=== PATIENT | female | born 1955 | race Caucasian/White ===

== ENCOUNTER 2020-07-03 22:05 | Inpatient (IN) | payer MEDICARE, MEDICAID ==
[~2020-07-03] VITALS: Ht 167.6 cm; Wt 90.7 kg
--- NOTE | 2020-07-03 22:10 | NUR ---
ED Nurse Note: pt [facility] from [facility] d/t right lower leg pain, swelling, and redness. Pt is AAOx4, slurred speech per baseline, breathing even and unlabored. Vital signs stable as documented. Per report pt had recent Negative COVID test in 06/28/20. Addendum: 07/03/20 at 2317 by LADAME ED Nurse Note: pt [facility] from [facility] d/t right lower leg pain, swelling, and redness. Pt is AAOx1, pt cooperative and follows directions, slurred speech per baseline, breathing even and unlabored. Vital signs stable as documented. Per report pt had recent Negative COVID test in 06/28/20.
[2020-07-03] MEDS ORDERED: cefTRIAXone 1 GM in NS 55 ML IVPB ONE (22:15)
[2020-07-03] MEDS ORDERED: PAXIL20 MG ORAL (22:16)
[2020-07-03] MEDS ORDERED: SENNA8.6 M2 PO (22:16)
[2020-07-03] MEDS ORDERED: DEPAKOTE250 MG PO (22:16)
[2020-07-03] MEDS ORDERED: COLACE100 MG ORAL (22:16)
[2020-07-03] MEDS ORDERED: FERROUS SULFAT325 MG ORAL (22:16)
[2020-07-03] MEDS ORDERED: ZYPREXA10 MG ORAL (22:16)
[2020-07-03] MEDS ORDERED: QUETIAPINE FUM200 MG ORAL (22:16)
[2020-07-03] MEDS ORDERED: XARELTO10 MG ORAL (22:16)
[2020-07-03] MEDS ORDERED: MILK OF MA400 MG/51 ORAL (22:16)
--- NOTE | 2020-07-03 22:17 | Emergency Room Report ---
History of Present Illness General Chief Complaint: Skin Rash/Abscess Source: Medical Record Present Illness HPI This is a 64-year-old female with a history of COPD and schizophrenia. She presents with chief complaint of bilateral lower extremity cellulitis. She resides in a [facility]. Unknown duration. It appeared that she has previous injury to the right tib-fib and now there is a wound and scabbing. There is some slight drainage from it. EMS said that nursing staff indicated that lower extremity slightly red. This is similar problem in the past. Patient is a poor historian. There is no reported fever or chills. No nausea no vomiting. No trauma. Allergies: Coded Allergies: No Known Allergies (Unverified , 07/03/20) COVID-19 Screening Contact w/high risk pt: No Experienced COVID-19 symptoms?: No COVID-19 Testing performed VENDING SUPERVISOR: No - negative on 06/28/20 COVID-19 Screening: Negative COVID-19 Patient History Past Medical History: see triage record, old chart reviewed, COPD, psych hx Past Surgical History: other Pertinent Family History: none Social History: Denies: smoking Last Menstrual Period: n/a Now: No Immunizations: other Reviewed Nursing Documentation: PMH: Agreed; PSxH: Agreed Nursing Documentation-PMH Past Medical History: No History, Except For Hx COPD: Yes Review of Systems Eye: Denies: eye pain, blurred vision ENT: Denies: ear pain, nose congestion, throat swelling Respiratory: Denies: cough, shortness of breath Cardiovascular: Denies: chest pain, palpitations Gastrointestinal: Denies: abdominal pain, diarrhea, nausea, vomiting Musculoskeletal: Denies: back pain, joint pain Skin: Denies: rash Neurological: Denies: headache, numbness Endocrine: Denies: increased thirst, increased urine Hematologic/Lymphatic: Denies: easy bruising All Other Systems: negative except mentioned in HPI Physical Exam Vital Signs Date Time Temp Pulse Resp B/P (MAP) Pulse Ox O2 Delivery O2 Flow Rate FiO2 07/03/20 22:07 99.0 87 18 143/85 (104) 91 Room Air Vitals unremarkable Sp02 EP Interpretation: reviewed, normal General Appearance: well appearing, no apparent distress, alert Head: normocephalic, atraumatic Eyes: bilateral eye PERRL, bilateral eye EOMI ENT: hearing grossly normal, normal pharynx Neck: full range of motion, supple, no meningismus Respiratory: chest non-tender, lungs clear, normal breath sounds Cardiovascular #1: regular rate, rhythm, no murmur Gastrointestinal: normal bowel sounds, non tender, no mass, no organomegaly, no bruit, non-distended Musculoskeletal: back normal, normal range of motion, gait/station normal, other - Lower extremities show some minimal erythema. Right tib-fib has previous scarring and there is 1 area of about 2 cm with scab/eschar with serous drainage. Psychiatric: mood/affect normal Medical Decision Making Diagnostic Impression: Primary Impression: Bilateral lower leg cellulitis ER Course Presents with possible bilateral lower extremity cellulitis. Does have an area of slight ulceration probably from rubbing from the other foot. I sent a culture. There is no evidence of any DVT or sepsis. Will admit for IV antibiotics. I contacted Dr. Portillo for admission. Last Vital Signs Date Time Temp Pulse Resp B/P (MAP) Pulse Ox O2 Delivery O2 Flow Rate FiO2 07/03/20 22:07 99.0 87 18 143/85 (104) 91 Room Air Status: improved Disposition: ADMITTED INPATIENT Condition: Serious Jet Yeh MD Jul 03, 2020 22:17
--- NOTE | 2020-07-03 22:20 | NUR ---
ED Nurse Note: EDMD aware unable to get IV line on left arm, per EDMD okay to have IV on Right arm.
--- NOTE | 2020-07-03 22:25 | NUR ---
ED Nurse Note: wound culture and blood sent to lab
--- NOTE | 2020-07-03 22:29 | NUR ---
ED Nurse Note: transport tank technician at bedside doing xray of right leg
[2020-07-03 22:39] LABS: BASOPHILS % (AUTO) 0.5 % (0.0-2.0); EOSINOPHILS % (AUTO) 0.1 % (0.0-3.0); HEMATOCRIT 48.2 % (37.0-47.0); HEMOGLOBIN 15.4 G/DL (12.0-16.0); LYMPHOCYTES % (AUTO) 34.2 % (20.0-45.0); MEAN CORPUSCULAR VOLUME 95 FL (80-99); MONOCYTES % (AUTO) 13.2 % (1.0-10.0); PLATELET COUNT 152 K/UL (150-450); RED BLOOD COUNT 5.08 M/UL (4.20-5.40); RED CELL DISTRIBUTION WIDTH 13.5 % (11.6-14.8); WHITE BLOOD COUNT 4.9 K/UL (4.8-10.8)
[2020-07-03 22:41] VITALS: BP 138/81
[2020-07-03 22:48] LABS: CALCIUM 8.9 MG/DL (8.5-10.1); POTASSIUM 4.1 MMOL/L (3.5-5.1)
--- NOTE | 2020-07-03 23:15 | Emergency Room Report ---
Physical Exam Vital Signs Date Time Temp Pulse Resp B/P (MAP) Pulse Ox O2 Delivery O2 Flow Rate FiO2 07/03/20 22:07 99.0 87 18 143/85 (104) 91 Room Air Medical Decision Making Diagnostic Impression: Primary Impression: Bilateral lower leg cellulitis Other X-Ray Diagnostic Results Other X-Ray Diagnostic Results : X-Ray ordered: Rt tib/fib # of Views/Limited Vs Complete: 4 View Indication: Pain EP Interpretation: Yes Interpretation: no dislocation, no soft tissue swelling, no fractures Impression: No acute disease Electronically Signed by: Jet Yeh MD Last Vital Signs Date Time Temp Pulse Resp B/P (MAP) Pulse Ox O2 Delivery O2 Flow Rate FiO2 07/03/20 22:41 99.0 77 18 138/81 95 Room Air Disposition: ADMITTED INPATIENT Condition: Serious Referrals: Iam Portillo DO (PCP) Jet Yeh MD Jul 03, 2020 23:14
--- NOTE | 2020-07-03 23:22 | NUR ---
ED Nurse Note: VRE, CRE, MRSA swabs sent to lab.
--- NOTE | 2020-07-03 23:49 | NUR ---
ED Nurse Note: Report given to CHARITO Melendez in [facility].
--- NOTE | 2020-07-03 23:52 | NUR ---
ED Nurse Note: urine collected and sent to lab
--- NOTE | 2020-07-03 23:58 | NUR ---
ED Nurse Note: pt transported to [facility] accompanied by EMT staff. Pt in stable condition. Belongings and Admission packet taken with patient.
[2020-07-04 00:04] LABS: APPEARANCE,URINE CLEAR; BILIRUBIN, URINE NEGATIVE (NEGATIVE); COLOR,URINE PALE YELLOW; GLUCOSE, URINE (UA) NEGATIVE (NEGATIVE); KETONES,URINE 1+ (NEGATIVE); LEUKOCYTE ESTERASE ,URINE NEGATIVE (NEGATIVE); NITRITE,URINE NEGATIVE (NEGATIVE); PH,URINE 6 (4.5-8.0); PROTEIN,URINE NEGATIVE (NEGATIVE); UROBILINOGEN,URINE NORMAL MG/DL (0.0-1.0)
--- NOTE | 2020-07-04 00:10 | NUR ---
NURSE NOTES: report received from leonarda. Received patient per uriel accompanied by ER staff. patient is awake. slurred to garbled speech but able to express herself. with iv line on the right ac, 20 g, saline lock. denies any pain or discomfort. per leonarda, " wasn't able to get iv access on the left arm. ED Doctor agreed to get iv on the right arm( malignant neoplasm on right female breast". ambulatory, steady gait. noted with redness, swelling and scab on the right lower extremity; with kerlix wrapped on the site. charge nurse made aware. with rashes on bilateral groin. with colostomy on the left lower abdomen. reiterated to call and ask for assistance. call light and light button within easy reach. bed alarm on. bed locked and in lowest position.
--- NOTE | 2020-07-04 00:30 | NUR ---
NURSE NOTES: paged dr. coleman for admission orders and to verify on the right arm iv access secondary to malignant neoplasm on right female breast. charge nurse made aware
--- NOTE | 2020-07-04 01:00 | NUR ---
NURSE NOTES: paged dr. coleman for orders, still waiting for call back.
--- NOTE | 2020-07-04 01:30 | NUR ---
NURSE NOTES: STILL HAVEN'T RECEIVED ANY CALL BACK YET FROM DR. HOLCOMB. RE-PAGED, AWAITING FOR CALL BACK. CHARGE NURSE MADE AWARE
[2020-07-04] MEDS ORDERED: VITAMIN C500 M7 PO (02:20)
[2020-07-04] MEDS ORDERED: ACETAMINOPHEN120 MG ORAL (02:20)
[2020-07-04] MEDS ORDERED: ZINC50 MG ORAL (02:20)
[2020-07-04] MEDS ORDERED: PANTOPRAZOLE SO20 MG ORAL (02:20)
[2020-07-04 04:00] VITALS: BP 124/76
--- NOTE | 2020-07-04 05:00 | NUR ---
NURSE NOTES: RE-PAGED DR. HOLCOMB FOR ADMISSION ORDERS. AWAITING FOR CALL BACK.
[2020-07-04] MEDS ORDERED: Morphine Sulfate 2mg/ml Inj(IV/IM USE ONLY) IVP PRN (06:15)
--- NOTE | 2020-07-04 06:16 | NUR ---
NURSE HAND-OFF: Important Events on Shift: ADMISSION Patient Status: STABLE Diet: REGULAR Pending Orders: Pending Results/Labs: Pending MD notification: Latest Vital Signs: Temperature 98.1 , Pulse 75 , B/P 124 /76 , Respiratory Rate 20 , O2 SAT 95 , Room Air, O2 Flow Rate . Vital Sign Comment: Latest Santizo Fall Score: 35 Fall Risk: Medium Risk Safety Measures: Call light Within Reach, Bed Alarm Zone 1, Side Rails Side Rails x2, Bed position Low and Locked. Fall Precautions: Patient Fall Education
[2020-07-04] MEDS: D5 1/2NS 1,000 ML IV SCH ×2 (06:29→21:00)
--- NOTE | 2020-07-04 06:44 | NUR ---
NURSE NOTES: TOMASZ THAPA- TO KEEP THE IV ON THE RIGHT AC.
--- NOTE | 2020-07-04 06:46 | Consultation ---
History of Present Illness General Chief Complaint: Skin Rash/Abscess Present Illness Allergies: Coded Allergies: No Known Allergies (Unverified , 07/03/20) Medication History Scheduled Divalproex Sodium* (Depakote*), 500 MG PO Q12HR, (Reported) Docusate Sodium* (Colace*), 100 MG ORAL DAILY, (Reported) Ferrous Sulfate* (Ferrous Sulfate*), 325 MG ORAL DAILY, (Reported) Olanzapine* (Zyprexa*), 10 MG ORAL BID, (Reported) Paroxetine Hcl* (Paxil*), 20 MG ORAL DAILY, (Reported) Quetiapine Fumarate* (Seroquel*), 200 MG ORAL DAILY, (Reported) Rivaroxaban (Xarelto*), 20 MG ORAL DAILY, (Reported) Scheduled PRN Acetaminophen* (Tylenol*), 650 MG ORAL Q6HR PRN for MILD/TEMP, (Reported) Ascorbate Calcium (Vitamin C), 500 MG PO DAILY PRN for supplement, (Reported) Pantoprazole (Pantoprazole), 40 MG ORAL AC PRN for gerd, (Reported) Zinc Gluconate (Zinc), 220 MG ORAL DAILY PRN for supplement, (Reported) Miscellaneous Medications Sennosides (Senna), 8.6 MG PO, (Reported) Discontinued Medications Magnesium Hydroxide* (Milk Of Magnesia*), 30 ML ORAL DAILY, (Reported) Discontinued Reason: MD discontinued med Patient History Healthcare decision maker Resuscitation status Advanced Directive on File Physical Exam Last 24 Hour Vital Signs Date Time Temp Pulse Resp B/P (MAP) Pulse Ox O2 Delivery O2 Flow Rate FiO2 07/04/20 04:00 98.1 75 20 124/76 (92) 95 07/04/20 01:08 Room Air 07/03/20 23:59 98.7 73 16 142/82 100 Room Air 07/03/20 22:41 99.0 77 18 138/81 95 Room Air 07/03/20 22:07 99.0 87 18 143/85 (104) 91 Room Air Intake and Output 07/03/20 07/04/20 19:00 07:00 Intake Total 150 ml Balance 150 ml Intake Oral 150 ml # Voids 4 Laboratory Tests Test 07/03/20 22:20 07/03/20 22:45 White Blood Count 4.9 K/UL (4.8-10.8) Red Blood Count 5.08 M/UL (4.20-5.40) Hemoglobin 15.4 G/DL (12.0-16.0) Hematocrit 48.2 % (37.0-47.0) H Mean Corpuscular Volume 95 FL (80-99) Mean Corpuscular Hemoglobin 30.4 PG (27.0-31.0) Mean Corpuscular Hemoglobin Concent 32.0 G/DL (32.0-36.0) Red Cell Distribution Width 13.5 % (11.6-14.8) Platelet Count 152 K/UL (150-450) Mean Platelet Volume 8.0 FL (6.5-10.1) Neutrophils (%) (Auto) 52.0 % (45.0-75.0) Lymphocytes (%) (Auto) 34.2 % (20.0-45.0) Monocytes (%) (Auto) 13.2 % (1.0-10.0) H Eosinophils (%) (Auto) 0.1 % (0.0-3.0) Basophils (%) (Auto) 0.5 % (0.0-2.0) Sodium Level 141 MMOL/L (136-145) Potassium Level 4.1 MMOL/L (3.5-5.1) Chloride Level 104 MMOL/L (98-107) Carbon Dioxide Level 34 MMOL/L (21-32) H Anion Gap 3 mmol/L (5-15) L Blood Urea Nitrogen 21 mg/dL (7-18) H Creatinine 1.0 MG/DL (0.55-1.30) Estimat Glomerular Filtration Rate 56.2 mL/min (>60) Glucose Level 124 MG/DL (74-106) H Calcium Level 8.9 MG/DL (8.5-10.1) Urine Color Pale yellow Urine Appearance Clear Urine pH 6 (4.5-8.0) Urine Specific Combes 1.020 (1.005-1.035) Urine Protein Negative (NEGATIVE) Urine Glucose (UA) Negative (NEGATIVE) Urine Ketones 1+ (NEGATIVE) H Urine Blood Negative (NEGATIVE) Urine Nitrite Negative (NEGATIVE) Urine Bilirubin Negative (NEGATIVE) Urine Urobilinogen Normal MG/DL (0.0-1.0) Urine Leukocyte Esterase Negative (NEGATIVE) Urine RBC 0-2 /HPF (0 - 2) Urine WBC 0 /HPF (0 - 2) Urine Squamous Epithelial Cells Few /LPF (NONE/OCC) Urine Bacteria None /HPF (NONE) Microbiology Date/Time Source Procedure Growth Status 07/03/20 23:10 Rectal Mucosa Received Height (Feet): 5 Height (Inches): 6.00 Weight (Pounds): 200 Medications Current Medications Medications (Trade) Dose Ordered Sig/Alli Route PRN Reason Start Time Stop Time Status Last Admin Dose Admin Dextrose/Sodium Chloride 1,000 ml @ 60 mls/hr [id number] IV 07/04/20 06:30 08/03/20 06:29 07/04/20 06:29 Heparin Sodium (Porcine) (Heparin 5000 units/ml) 5,000 units EVERY 12 HOURS SUBQ 07/04/20 09:00 08/18/20 08:59 Morphine Sulfate (Morphine Sulfate) 2 mg Q4H PRN IVP For Pain 07/04/20 06:15 07/11/20 06:14 Assessment/Plan Assessment/Plan: Oncology Consultation REQ MD: Enoch Portillo [facility] Breast Ca DOS 07/04/2020 HPI This is a 64-year-old female with a history of COPD and schizophrenia. She presents with chief complaint of bilateral lower extremity cellulitis. She resides in a [facility]. Unknown duration. It appeared that she has previous injury to the right tib-fib and now there is a wound and scabbing. There is some slight drainage from it. EMS said that nursing staff indicated that lower extremity slightly red. This is similar problem in the past. Patient is a poor historian. There is no reported fever or chills. No nausea no vomiting. No trauma. She speaks in short ununderstandable language difficult to understand what she says. Coded Allergies: No Known Allergies (Unverified , 07/03/20) COVID-19 Screening Contact w/high risk pt: No Experienced COVID-19 symptoms?: No COVID-19 Testing performed DEAD MAIL CHECKER: No - negative on 06/28/20 COVID-19 Screening: Negative COVID-19 Patient History Past Medical History: see triage record, old chart reviewed, COPD, psych hx Past Surgical History: other Pertinent Family History: none Social History: Denies: smoking Last Menstrual Period: n/a Now: No Immunizations: other Reviewed Nursing Documentation: PMH: Agreed; PSxH: Agreed Nursing Documentation-PMH Past Medical History: No History, Except For Hx COPD: Yes Review of Systems Eye: Denies: eye pain, blurred vision ENT: Denies: ear pain, nose congestion, throat swelling Respiratory: Denies: cough, shortness of breath Cardiovascular: Denies: chest pain, palpitations Gastrointestinal: Denies: abdominal pain, diarrhea, nausea, vomiting Musculoskeletal: Denies: back pain, joint pain Skin: Denies: rash Neurological: Denies: headache, numbness Endocrine: Denies: increased thirst, increased urine Hematologic/Lymphatic: Denies: easy bruising All Other Systems: negative except mentioned in HPI Physical Exam Vitals: unremarkable Sp02 EP Interpretation: reviewed, normal General Appearance: well appearing Heent: normocephalic, atraumatic, hearing grossly normal, normal pharynx Neck: full range of motion, supple, no meningismus Respiratory: chest non-tender, lungs clear, normal breath sounds Cardiovascular: regular rate, rhythm, no murmur +++scar right breast Gastrointestinal: normal bowel sounds, non tender, no mass, no organomegaly, no bruit, non-distended Musculoskeletal: back normal, normal range of motion, gait/station normal, other - Lower extremities show some minimal erythema. Right tib-fib has previous scarring and there is 1 area of about 2 cm with scab/eschar with serous drainage. Psychiatric: mood/affect normal Labs: reviewed Imaging: noted Assesment and Recs # Breast cancer on the right side s/p mastectomy, is not on hormonal therapy --> obtain outside records, order placed --> hold off hormonal medications, surgery may be years ago --> eval for recurrence as needed # Monocytosis --> likely due to reactive process --> wbc remains wnl # Bilateral lower leg cellulitis --> as per id on abx, right leg with gauze over it --> wound care --> eval as needed surg # Dvt ppx lovenox sq Appreciate consultation and dw José Luis Jarvis MD Jul 04, 2020 06:46
--- NOTE | 2020-07-04 07:38 | NUR ---
HAND-OFF: Report given to CHARITO ACHARYA.
--- NOTE | 2020-07-04 07:50 | NUR ---
NURSE NOTES: Received report from CHARITO Ruiz. Patient observed to be awake, alert and oriented x1. Seen ambulating steady gait to restroom. Currently on room air, no s/sx of SOB/Distress, no c/o any pain or discomfort. Colostomy bag located on LLQ. Inplace and intact. Patient on right arm precaution. IV site located on RAC gauge 20, MD Collins aware. Bed placed on lowest and locked, call light placed within reach and will continue to monitor for any changes in condition
[2020-07-04 08:00] VITALS: BP 134/81
[2020-07-04] MEDS: Sennosides 8.6mg tab ORAL SCH (08:55)
[2020-07-04] MEDS: OLANZapine 10mg tab ORAL SCH ×2 (08:55→17:05)
[2020-07-04] MEDS: Docusate 100mg cap ORAL SCH (08:55)
[2020-07-04] MEDS: Depakote 500mg tab ORAL SCH ×2 (08:55→20:22)
[2020-07-04] MEDS: PARoxetine HCL 20mg tab ORAL SCH (08:55)
[2020-07-04] MEDS: QUEtiapine 200mg tab ORAL SCH (08:55)
[2020-07-04] MEDS: Heparin 5000 units/ml inj SUBQ SCH ×2 (08:56→20:23)
[2020-07-04 10:09] LABS: BASOPHILS % (AUTO) 0.7 % (0.0-2.0); HEMATOCRIT 50.6 % (37.0-47.0); HEMOGLOBIN 16.1 G/DL (12.0-16.0); MEAN CORPUSCULAR VOLUME 97 FL (80-99); MONOCYTES % (AUTO) 13.1 % (1.0-10.0); NEUTROPHILS % (AUTO) 54.3 % (45.0-75.0); PLATELET COUNT 166 K/UL (150-450); RED BLOOD COUNT 5.21 M/UL (4.20-5.40); RED CELL DISTRIBUTION WIDTH 13.1 % (11.6-14.8); WHITE BLOOD COUNT 5.7 K/UL (4.8-10.8)
[2020-07-04 10:30] LABS: ANION GAP 8 mmol/L (5-15); BLOOD UREA NITROGEN 19 mg/dL (7-18); CALCIUM 8.8 MG/DL (8.5-10.1); CARBON DIOXIDE 28 MMOL/L (21-32); CHLORIDE 104 MMOL/L (98-107); CREATININE 0.9 MG/DL (0.55-1.30); POTASSIUM 4.1 MMOL/L (3.5-5.1); SODIUM 140 MMOL/L (136-145)
--- NOTE | 2020-07-04 10:45 | History and Physical Report ---
DATE OF ADMISSION: 07/03/2020 DATE AND TIME SEEN: 07/04/2020 at 9 a.m. CONSULTANTS: 1. Dr. Collins. 2. Jin Adams MD. 3. Drake Rivera MD. CHIEF COMPLAINT: Bilateral lower extremity cellulitis, right breast cancer, and confusion. BRIEF HISTORY: This is a 64-year-old female from [facility], presented with above-mentioned diagnoses, admitted to medical floor at [facility]. Currently calm, confused in bed, refusing to answer questions. REVIEW OF SYSTEMS: Unavailable. PAST MEDICAL HISTORY: Includes right breast cancer, lower extremity cellulitis, paranoid schizophrenia, and COPD. PAST SURGICAL HISTORY: Colostomy. ALLERGIES: Denies. MEDICATIONS: Include pantoprazole, quetiapine, olanzapine, ferrous sulfate, sodium, heparin, morphine, and ceftriaxone. SOCIAL HISTORY: Unable to obtain secondary to the patient's condition. PHYSICAL EXAMINATION: GENERAL: Confused in bed, refusing to answer questions. VITAL SIGNS: Temperature 97, pulse 104, respirations 20, blood pressure 134/81. CARDIOVASCULAR: No murmur. LUNGS: Poor air exchange. ABDOMEN: Bowel sounds distant. EXTREMITIES: No cyanosis, clubbing, or edema. Right marino dressing clean and dry. NEUROLOGIC: The patient moves all extremities, slightly weak. LABORATORY AND DIAGNOSTIC DATA: Labs at this time show CBC is normal. BMP shows BUN 21, glucose 124. Urinalysis shows 1+ ketone. ASSESSMENT: 1. Bilateral lower extremity cellulitis. 2. Right breast cancer. 3. Confusion. 4. Right marino wound. 5. Paranoid schizophrenia 6. COPD. PLAN: 1. Resume home medications. 2. O2 and pulmonary treatment as needed. 3. Antibiotics per Infectious Disease. 4. Wound care. 5. Blood pressure and pain control. 6. Dietary followup. 7. Psych treatment. 8. CBC and BMP in the morning. Iam Portillo D.O. DR: KINGS JOB#: [id number] CC:
--- NOTE | 2020-07-04 11:05 | NUR ---
P.T Note: P.T evaluation completed. Pt is alert,unable to articulate words nor speaks coherently however able to follow up simple commands. No indication of pain nor discomfort. Pt is independent with bed mobilities and transfers. Pt safely ambulating independently w/o AD needed. Pt currently functioning at baseline therefore skilled not needed at this time. DC P.T services. Thank you for this referral.
[2020-07-04 12:00] VITALS: BP 132/73
--- NOTE | 2020-07-04 12:54 | Consultation ---
History of Present Illness General Date patient seen: Jul 04, 2020 Chief Complaint: Skin Rash/Abscess Present Illness HPI 64 y/o F with hx of COPD, paranoid schizophrenia, R breast CA sp mastectomy, [place] resident ([facility]) presented to ED on 07/03/20 with b/l LE drainage and redness. Upon admission was noted evidence of prior injury to R tib-fib with a scabbed wound Denied f/c, n/v/d COVID19 neg on 06/28 Allergies: Coded Allergies: No Known Allergies (Unverified , 07/03/20) Medication History Scheduled Divalproex Sodium* (Depakote*), 500 MG PO Q12HR, (Reported) Docusate Sodium* (Colace*), 100 MG ORAL DAILY, (Reported) Ferrous Sulfate* (Ferrous Sulfate*), 325 MG ORAL DAILY, (Reported) Olanzapine* (Zyprexa*), 10 MG ORAL BID, (Reported) Paroxetine Hcl* (Paxil*), 20 MG ORAL DAILY, (Reported) Quetiapine Fumarate* (Seroquel*), 200 MG ORAL DAILY, (Reported) Rivaroxaban (Xarelto*), 20 MG ORAL DAILY, (Reported) Scheduled PRN Acetaminophen* (Tylenol*), 650 MG ORAL Q6HR PRN for MILD/TEMP, (Reported) Ascorbate Calcium (Vitamin C), 500 MG PO DAILY PRN for supplement, (Reported) Pantoprazole (Pantoprazole), 40 MG ORAL AC PRN for gerd, (Reported) Zinc Gluconate (Zinc), 220 MG ORAL DAILY PRN for supplement, (Reported) Miscellaneous Medications Sennosides (Senna), 8.6 MG PO, (Reported) Discontinued Medications Magnesium Hydroxide* (Milk Of Magnesia*), 30 ML ORAL DAILY, (Reported) Discontinued Reason: discontinued med Patient History Healthcare decision maker Resuscitation status Advanced Directive on File Patient History Narrative Pmhx: as above Shx: Denies: smoking Fhx: non contributory Review of Systems All Other Systems: negative except mentioned in HPI Physical Exam Physical Exam Narrative GENERAL: Confused in bed, refusing to answer questions. CARDIOVASCULAR: No murmur. LUNGS: Poor air exchange. ABDOMEN: Bowel sounds distant. EXTREMITIES: No cyanosis, clubbing, or edema. R marino w evidence of prior surgery- redneses, swelling, and warmth; L LE lesser degree of erythema or swelling NEUROLOGIC: The patient moves all extremities, slightly weak. Last 24 Hour Vital Signs Date Time Temp Pulse Resp B/P (MAP) Pulse Ox O2 Delivery O2 Flow Rate FiO2 07/04/20 08:00 97.9 104 20 134/81 (98) 94 07/04/20 04:00 98.1 75 20 124/76 (92) 95 07/04/20 01:08 Room Air 07/03/20 23:59 98.7 73 16 142/82 100 Room Air 07/03/20 22:41 99.0 77 18 138/81 95 Room Air 07/03/20 22:07 99.0 87 18 143/85 (104) 91 Room Air Intake and Output 07/03/20 07/04/20 19:00 07:00 Intake Total 150 ml Balance 150 ml Intake Oral 150 ml # Voids 4 Laboratory Tests Test 07/03/20 22:20 07/03/20 22:45 07/04/20 09:25 White Blood Count 4.9 K/UL (4.8-10.8) 5.7 K/UL (4.8-10.8) Red Blood Count 5.08 M/UL (4.20-5.40) 5.21 M/UL (4.20-5.40) Hemoglobin 15.4 G/DL (12.0-16.0) 16.1 G/DL (12.0-16.0) H Hematocrit 48.2 % (37.0-47.0) H 50.6 % (37.0-47.0) H Mean Corpuscular Volume 95 FL (80-99) 97 FL (80-99) Mean Corpuscular Hemoglobin 30.4 PG (27.0-31.0) 30.9 PG (27.0-31.0) Mean Corpuscular Hemoglobin Concent 32.0 G/DL (32.0-36.0) 31.8 G/DL (32.0-36.0) L Red Cell Distribution Width 13.5 % (11.6-14.8) 13.1 % (11.6-14.8) Platelet Count 152 K/UL (150-450) 166 K/UL (150-450) Mean Platelet Volume 8.0 FL (6.5-10.1) 7.8 FL (6.5-10.1) Neutrophils (%) (Auto) 52.0 % (45.0-75.0) 54.3 % (45.0-75.0) Lymphocytes (%) (Auto) 34.2 % (20.0-45.0) 32.0 % (20.0-45.0) Monocytes (%) (Auto) 13.2 % (1.0-10.0) H 13.1 % (1.0-10.0) H Eosinophils (%) (Auto) 0.1 % (0.0-3.0) 0.0 % (0.0-3.0) Basophils (%) (Auto) 0.5 % (0.0-2.0) 0.7 % (0.0-2.0) Sodium Level 141 MMOL/L (136-145) 140 MMOL/L (136-145) Potassium Level 4.1 MMOL/L (3.5-5.1) 4.1 MMOL/L (3.5-5.1) Chloride Level 104 MMOL/L (98-107) 104 MMOL/L (98-107) Carbon Dioxide Level 34 MMOL/L (21-32) H 28 MMOL/L (21-32) Anion Gap 3 mmol/L (5-15) L 8 mmol/L (5-15) Blood Urea Nitrogen 21 mg/dL (7-18) H 19 mg/dL (7-18) H Creatinine 1.0 MG/DL (0.55-1.30) 0.9 MG/DL (0.55-1.30) Estimat Glomerular Filtration Rate 56.2 mL/min (>60) > 60 mL/min (>60) Glucose Level 124 MG/DL (74-106) H 116 MG/DL (74-106) H Calcium Level 8.9 MG/DL (8.5-10.1) 8.8 MG/DL (8.5-10.1) Urine Color Pale yellow Urine Appearance Clear Urine pH 6 (4.5-8.0) Urine Specific [place] 1.020 (1.005-1.035) Urine Protein Negative (NEGATIVE) Urine Glucose (UA) Negative (NEGATIVE) Urine Ketones 1+ (NEGATIVE) H Urine Blood Negative (NEGATIVE) Urine Nitrite Negative (NEGATIVE) Urine Bilirubin Negative (NEGATIVE) Urine Urobilinogen Normal MG/DL (0.0-1.0) Urine Leukocyte Esterase Negative (NEGATIVE) Urine RBC 0-2 /HPF (0 - 2) Urine WBC 0 /HPF (0 - 2) Urine Squamous Epithelial Cells Few /LPF (NONE/OCC) Urine Bacteria None /HPF (NONE) Microbiology Date/Time Source Procedure Growth Status 07/03/20 23:10 Rectal Mucosa Received Height (Feet): 5 Height (Inches): 6.00 Weight (Pounds): 200 Medications Current Medications Medications (Trade) Dose Ordered Sig/Alli Route PRN Reason Start Time Stop Time Status Last Admin Dose Admin Dextrose/Sodium Chloride 1,000 ml @ 60 mls/hr [id number] IV 07/04/20 06:30 08/03/20 06:29 07/04/20 06:29 Divalproex Sodium (Depakote) 500 mg Q12HR ORAL 07/04/20 09:00 08/03/20 08:59 07/04/20 08:55 Docusate Sodium (Colace) 100 mg DAILY ORAL 07/04/20 09:00 08/03/20 08:59 07/04/20 08:55 Ferrous Sulfate (Feosol) 325 mg DAILY ORAL 07/04/20 09:00 10/02/20 08:59 07/04/20 08:55 Heparin Sodium (Porcine) (Heparin 5000 units/ml) 5,000 units EVERY 12 HOURS SUBQ 07/04/20 09:00 08/18/20 08:59 07/04/20 08:56 Morphine Sulfate (Morphine Sulfate) 2 mg Q4H PRN IVP For Pain 07/04/20 06:15 07/11/20 06:14 Olanzapine (ZyPREXA) 10 mg BID ORAL 07/04/20 09:00 08/18/20 08:59 07/04/20 08:55 Pantoprazole (Protonix) 40 mg DAILY ORAL 07/04/20 09:00 08/03/20 08:59 07/04/20 08:55 Paroxetine HCl (Paxil) 20 mg DAILY ORAL 07/04/20 09:00 08/03/20 08:59 07/04/20 08:55 Quetiapine Fumarate (SEROqueL) 200 mg DAILY ORAL 07/04/20 09:00 08/18/20 08:59 07/04/20 08:55 Sennosides (Senokot) 8.6 mg DAILY ORAL 07/04/20 09:00 08/03/20 08:59 07/04/20 08:55 Assessment/Plan Assessment/Plan: Abx: Ceftriaxone x1 07/03 Assessment: R>L LE cellulitis Afebrile No leukocytosis -u/a neg COPD paranoid schizophrenia R breast CA sp mastectomy [place] resident ([facility]) Plan: -Start IV Ancef #1 (abx #2) -f/u cx -Monitor CBC/CMP, temperatures -wound care per hospital protocol Thank you for consulting [facility]. Will continue to follow along with you. Discussed with CHARITO. Omaira Eduardo M.D. Jul 04, 2020 12:54
--- NOTE | 2020-07-04 13:15 | NUR ---
NURSE NOTES: Notified Dr. Portillo that patient pulled out IV access site and refuses to have one reinserted after multiple attempts. Ordered to consult with Dr. Rivera. Notified Dr. Rivera received multiple orders. Orders noted and carried out.
[2020-07-04] MEDS ORDERED: DiphenhydrAMINE 50mg/ml Inj IM SCH (14:45)
[2020-07-04] MEDS ORDERED: Haloperidol 5mg/ml Inj IM SCH (14:45)
[2020-07-04] MEDS ORDERED: LORazepam 1mg tab ORAL PRN (14:45)
[2020-07-04] MEDS ORDERED: LORazepam Inj 2mg/ml 1ml IM SCH (14:45)
--- NOTE | 2020-07-04 15:00 | NUR ---
NURSE NOTES: Multiple attempts on trying to insert IV access done on patient, patient refuses and begins to become agitated.
[2020-07-04 16:00] VITALS: BP 155/95
[2020-07-04] MEDS ORDERED: ceFAZolin sod 1 GM in D5W 55 ML IVPB SCH (16:00)
--- NOTE | 2020-07-04 16:21 | NUR ---
CASE MANAGEMENT:INITIAL REVIEW 64 YR OLD FEMALE BIBA FROM [facility] CC;SKIN RASH. ABSCESS. SI;BLE CELLULITIS 99.0 87 18 143/85 91% ON RA BUN 21 BG 124 UA+ KETONES IS;ROCEPHIN IV ADMITTED TO MED SURG MED SURG STATUS DCP;FROM [facility]
[2020-07-04] MEDS: Cephalexin 500mg cap ORAL SCH ×2 (17:05→23:13)
[2020-07-04] MEDS ORDERED: Cephalexin 500mg cap ORAL SCH (18:00)
[2020-07-04] MEDS ORDERED: XARELTO20 MG ORAL (18:10)
[2020-07-04] MEDS ORDERED: MULTIVITAMINS1 EAC8 ORAL (18:10)
[2020-07-04] MEDS ORDERED: ACETAMINOPHEN325 M1 ORAL (18:10)
[2020-07-04] MEDS ORDERED: FLEET ENEMA133 ML RECTAL (18:10)
[2020-07-04] MEDS ORDERED: CRANBERRY450 M4 PO (18:10)
[2020-07-04] MEDS ORDERED: ZINC SULFATE220 M1 ORAL (18:10)
[2020-07-04] MEDS ORDERED: ACETAMINOPHEN500 M3 ORAL (18:10)
[2020-07-04] MEDS ORDERED: DEPAKOTE ER500 MG ORAL (18:10)
--- NOTE | 2020-07-04 18:30 | Consultation ---
DATE OF CONSULTATION: 07/04/2020 CONSULTING PHYSICIAN: Drake Rivera MD. REFERRING PHYSICIAN: Iam Portillo DO. HISTORY OF PRESENT ILLNESS: This is a 64-year-old female patient. She was admitted to [facility]. The reason why she was admitted to [facility] was because this patient has bilateral lower extremity cellulitis, right breast cancer, and confusion, but she also has overlying diagnosis of paranoid schizophrenia. She has extreme mood lability. She came in from [facility]. I saw and assessed her at bedside. She was making a lot of nonsensical statements, but also seemed to have some psychomotor agitation, irritable as well. PAST MEDICAL HISTORY: She has a history of right breast cancer, lower extremity cellulitis, COPD. ALLERGIES: No known drug allergies at this time. PSYCHOTROPIC MEDICATIONS ON ADMISSION: She is currently on a psychotropic medication regimen consisting of Paxil 20 mg a day, Zyprexa 10 mg twice a day, Depakote 500 mg twice a day. PAIN ASSESSMENT: 11/07 pain. DEVELOPMENTAL PROBLEMS: Denies. FAMILY PSYCHIATRIC HISTORY: Denies. SUBSTANCE ABUSE HISTORY: Denies. SOCIAL HISTORY: The patient lives at [facility], financially supported by [employer] and Medicare. LEGAL PROBLEMS: No known legal problems. FAMILY INTERACTIONS AND RELATIONSHIPS: Poor. PSYCHIATRIC HISTORY: Schizoaffective, bipolar type, had multiple psychiatric admissions. STRENGTHS: She is motivated to get better and has a place to live. WEAKNESSES: Impulsive, minimal support system. MENTAL STATUS EXAMINATION: A 64-year-old female. Her appearance is disheveled. Her attitude is irritable and agitated. Affect is labile. Intellect is poor because she does not know current events and does not know last four presidents. Mood, depressed and anxious. Motor activity, psychomotor agitation. Attention span is poor because she cannot do serial sevens or spell world backwards. Orientation x2. She is oriented to person and place, not time or situation. Speech, pressured and nonsensical. Thought process, disorganized and illogical. Thought content, auditory hallucinations and paranoid delusions. Perception is poor because of perceptual disturbance such as auditory hallucinations and paranoid delusions. Abstract reasoning is poor because she does not understand proverbs and only has concrete thinking. Insight is poor because she does not recognize having a psych disorder. Judgment is poor because she cannot make medical decisions for herself. She has difficulty lizette for safety as far as suicidal ideations, but she is able to contract for safety while in the hospital. Short-term memory, 3 out of 3 recall after 5 minutes delay with good short-term memory. Long-term memory is intact based on her knowledge of long-term events of her life such as high school that she went to. Gait is normal. No abnormal movements. . DIAGNOSES: 1. Schizoaffective, bipolar type. 2. No secondary. 3. Medical - COPD, diabetes. She has a diagnosis of bilateral lower extremity cellulitis and chronic pain, also anemia. 4. Psychosocial stressors, financial. 5. Functional impairment, severe. PLAN: Treat the patient with medication regimen of a day and also Depakote . Twenty minutes of cognitive behavioral therapy will help her identify automatic negative thoughts and help her convert those negative thoughts to more positive thoughts to reduce depression, anxiety, and mood lability. Chart reviewed. Discussed with staff. The patient is seen and assessed in her room. I would like to thank Dr. Iam Portillo for this interesting consultation. Drake Rivera M.D. DR: VENKAT/Ayesha JOB#: [id number] CC:
--- NOTE | 2020-07-04 18:54 | Diagnostic Imaging Report ---
Indication: Pain, trauma, right lower leg pain and swelling and redness Technique: 2 views of the right tibia and fibula Comparison: none Findings: No acute fracture. No dislocation. The joint spaces are preserved. No radiopaque foreign body Impression: Negative
--- NOTE | 2020-07-04 19:20 | NUR ---
NURSE NOTES: Notified Dr. Portillo patient still has no IV access site, still waiting for further orders from Dr. Portillo
--- NOTE | 2020-07-04 19:21 | NUR ---
NURSE HAND-OFF: Important Events on Shift:ATB; colostomy bag change Patient Status: stable Diet: regular Pending Orders: n/a Pending Results/Labs:n/a Pending MD notification:n/a Latest Vital Signs: Temperature 99.0 , Pulse 91 , B/P 155 /95 , Respiratory Rate 20 , O2 SAT 94 , Room Air, O2 Flow Rate . Vital Sign Comment: stable Latest [place] Fall Score: 35 Fall Risk: Medium Risk Safety Measures: Call light Within Reach, Bed Alarm Zone 2, Side Rails Side Rails x2, Bed position Low and Locked. Fall Precautions: Yellow Socks Yellow Gown Door Sign Patient Fall Education Report given to CHARITO Finley.
--- NOTE | 2020-07-04 19:39 | NUR ---
NURSE NOTES: Received report from CHARITO Blair. AAO x 1, on room air, ambulatory. Colostomy bag in place on LLQ. No IV access, MD aware. No acute distress noted. Denies pain. R arm precaution. Bed locked, lowest position,alarm on, call light within reach. Will continue to monitor.
[2020-07-04 20:00] VITALS: BP 142/87
--- NOTE | 2020-07-04 21:26 | NUR ---
NURSE NOTES: Contacted [facility] to obtain breast cancer record. They said they don't have it. Pt didn't have the record when she admitted at group home.
[2020-07-05] VITALS (8 sets, daily range): BP systolic 111–144; BP diastolic 65–84
[2020-07-05] MEDS: Cephalexin 500mg cap ORAL SCH ×4 (05:50→23:17)
--- NOTE | 2020-07-05 06:37 | Hematology/Onc Progress Note ---
Assessment/Plan Assessment/Plan Assesment and Recs # Breast cancer on the right side s/p mastectomy, is not on hormonal therapy --> obtain outside records, order placed --> hold off hormonal medications, surgery may be years ago --> eval for recurrence as needed --> 06/04 unable to obtain records per snf now # Erythrocytosis likely is due to dehydration --> trend hgb as needed --> hgb 16.5 # Monocytosis --> likely due to reactive process --> wbc remains wnl # Bilateral lower leg cellulitis --> as per id on abx, right leg with gauze over it --> wound care --> eval as needed surg # Dvt ppx lovenox sq Appreciate consultation and brian MCNEILL Subjective Constitutional: Denies: no symptoms, chills, fever, malaise, weakness, other HEENT: Denies: no symptoms, eye pain, blurred vision, tearing, double vision, ear pain, ear discharge, nose pain, nose congestion, throat pain, throat swelling, mouth pain, mouth swelling, other Cardiovascular: Denies: no symptoms, chest pain, edema, irregular heart rate, lightheadedness, palpitations, syncope, other Respiratory: Denies: no symptoms, cough, shortness of breath, SOB with excertion, SOB at rest, sputum, wheezing, other Gastrointestinal/Abdominal: Denies: no symptoms, abdomen distended, abdominal pain, black stools, tarry stools, blood in stool, constipated, diarrhea, difficulty swallowing, nausea, poor appetite, poor fluid intake, rectal bleeding, vomiting, other Genitourinary: Denies: no symptoms, burning, discharge, frequency, flank pain, hematuria, incontinence, pain, urgency, other Neurologic/Psychiatric: Denies: no symptoms, anxiety, depressed, emotional problems, headache, numbness, paresthesia, pre-existing deficit, seizure, tingling, tremors, weakness, other Endocrine: Denies: no symptoms, excessive sweating, flushing, intolerance to cold, intolerance to heat, increased hunger, increased thirst, increased urine, unexplained weight gain, unexplained weight loss, other Allergies: Coded Allergies: No Known Allergies (Unverified , 07/03/20) Subjective 07/05 llq colostomy bag, a+ox1 no bleeding, labs reviewed, dw rn, hgb 16 Objective Objective Current Medications Medications (Trade) Dose Ordered Sig/Alli Route PRN Reason Start Time Stop Time Status Last Admin Dose Admin Cephalexin (Keflex) 500 mg Q6HR ORAL 07/04/20 18:00 07/11/20 17:59 07/05/20 05:50 Dextrose/Sodium Chloride 1,000 ml @ 60 mls/hr [id number] IV 07/04/20 06:30 08/03/20 06:29 07/04/20 06:29 Divalproex Sodium (Depakote) 500 mg Q12HR ORAL 07/04/20 09:00 08/03/20 08:59 07/04/20 20:22 Docusate Sodium (Colace) 100 mg DAILY ORAL 07/04/20 09:00 08/03/20 08:59 07/04/20 08:55 Ferrous Sulfate (Feosol) 325 mg DAILY ORAL 07/04/20 09:00 10/02/20 08:59 07/04/20 08:55 Heparin Sodium (Porcine) (Heparin 5000 units/ml) 5,000 units EVERY 12 HOURS SUBQ 07/04/20 09:00 08/18/20 08:59 07/04/20 20:23 Lorazepam (Ativan) 1 mg Q6H PRN ORAL For Anxiety 07/04/20 14:45 07/11/20 14:44 Morphine Sulfate (Morphine Sulfate) 2 mg Q4H PRN IVP For Pain 07/04/20 06:15 07/11/20 06:14 Olanzapine (ZyPREXA) 10 mg BID ORAL 07/04/20 09:00 08/18/20 08:59 07/04/20 17:05 Pantoprazole (Protonix) 40 mg DAILY ORAL 07/04/20 09:00 08/03/20 08:59 07/04/20 08:55 Paroxetine HCl (Paxil) 20 mg DAILY ORAL 07/04/20 09:00 08/03/20 08:59 07/04/20 08:55 Quetiapine Fumarate (SEROqueL) 200 mg DAILY ORAL 07/04/20 09:00 08/18/20 08:59 07/04/20 08:55 Risperidone (RisperDAL) 1 mg BID ORAL 07/04/20 18:00 08/18/20 17:59 07/04/20 17:05 Sennosides (Senokot) 8.6 mg DAILY ORAL 07/04/20 09:00 08/03/20 08:59 07/04/20 08:55 Last 24 Hour Vital Signs Date Time Temp Pulse Resp B/P (MAP) Pulse Ox O2 Delivery O2 Flow Rate FiO2 07/05/20 04:00 97.5 79 18 138/70 (92) 94 07/05/20 00:00 98.0 85 18 135/65 (88) 92 07/04/20 21:00 Room Air 07/04/20 20:00 97.7 101 20 142/87 (105) 92 07/04/20 16:00 99.0 91 20 155/95 (115) 94 07/04/20 12:00 98.1 95 18 132/73 (92) 94 07/04/20 09:00 Room Air 07/04/20 08:00 97.9 104 20 134/81 (98) 94 07/04/20 04:00 98.1 75 20 124/76 (92) 95 07/04/20 01:08 Room Air 07/03/20 23:59 98.7 73 16 142/82 100 Room Air 07/03/20 22:41 99.0 77 18 138/81 95 Room Air 07/03/20 22:07 99.0 87 18 143/85 (104) 91 Room Air Intake and Output 07/04/20 07/05/20 19:00 07:00 Intake Total 400 ml Balance 400 ml Intake Oral 400 ml # Voids 4 Labs Test 07/03/20 22:20 07/03/20 22:45 07/04/20 09:25 White Blood Count 4.9 K/UL (4.8-10.8) 5.7 K/UL (4.8-10.8) Red Blood Count 5.08 M/UL (4.20-5.40) 5.21 M/UL (4.20-5.40) Hemoglobin 15.4 G/DL (12.0-16.0) 16.1 G/DL (12.0-16.0) Hematocrit 48.2 % (37.0-47.0) 50.6 % (37.0-47.0) Mean Corpuscular Volume 95 FL (80-99) 97 FL (80-99) Mean Corpuscular Hemoglobin 30.4 PG (27.0-31.0) 30.9 PG (27.0-31.0) Mean Corpuscular Hemoglobin Concent 32.0 G/DL (32.0-36.0) 31.8 G/DL (32.0-36.0) Red Cell Distribution Width 13.5 % (11.6-14.8) 13.1 % (11.6-14.8) Platelet Count 152 K/UL (150-450) 166 K/UL (150-450) Mean Platelet Volume 8.0 FL (6.5-10.1) 7.8 FL (6.5-10.1) Neutrophils (%) (Auto) 52.0 % (45.0-75.0) 54.3 % (45.0-75.0) Lymphocytes (%) (Auto) 34.2 % (20.0-45.0) 32.0 % (20.0-45.0) Monocytes (%) (Auto) 13.2 % (1.0-10.0) 13.1 % (1.0-10.0) Eosinophils (%) (Auto) 0.1 % (0.0-3.0) 0.0 % (0.0-3.0) Basophils (%) (Auto) 0.5 % (0.0-2.0) 0.7 % (0.0-2.0) Sodium Level 141 MMOL/L (136-145) 140 MMOL/L (136-145) Potassium Level 4.1 MMOL/L (3.5-5.1) 4.1 MMOL/L (3.5-5.1) Chloride Level 104 MMOL/L (98-107) 104 MMOL/L (98-107) Carbon Dioxide Level 34 MMOL/L (21-32) 28 MMOL/L (21-32) Anion Gap 3 mmol/L (5-15) 8 mmol/L (5-15) Blood Urea Nitrogen 21 mg/dL (7-18) 19 mg/dL (7-18) Creatinine 1.0 MG/DL (0.55-1.30) 0.9 MG/DL (0.55-1.30) Estimat Glomerular Filtration Rate 56.2 mL/min (>60) > 60 mL/min (>60) Glucose Level 124 MG/DL (74-106) 116 MG/DL (74-106) Calcium Level 8.9 MG/DL (8.5-10.1) 8.8 MG/DL (8.5-10.1) Urine Color Pale yellow Urine Appearance Clear Urine pH 6 (4.5-8.0) Urine Specific [place] 1.020 (1.005-1.035) Urine Protein Negative (NEGATIVE) Urine Glucose (UA) Negative (NEGATIVE) Urine Ketones 1+ (NEGATIVE) Urine Blood Negative (NEGATIVE) Urine Nitrite Negative (NEGATIVE) Urine Bilirubin Negative (NEGATIVE) Urine Urobilinogen Normal MG/DL (0.0-1.0) Urine Leukocyte Esterase Negative (NEGATIVE) Urine RBC 0-2 /HPF (0 - 2) Urine WBC 0 /HPF (0 - 2) Urine Squamous Epithelial Cells Few /LPF (NONE/OCC) Urine Bacteria None /HPF (NONE) Height (Feet): 5 Height (Inches): 6.00 Weight (Pounds): 200 Objective Physical Exam Vitals: unremarkable Sp02 EP Interpretation: reviewed, normal General Appearance: well appearing Heent: normocephalic, atraumatic, hearing grossly normal, normal pharynx Neck: full range of motion, supple, no meningismus Respiratory: chest non-tender, lungs clear, normal breath sounds Cardiovascular: regular rate, rhythm, no murmur +++scar right breast Gastrointestinal: normal bowel sounds, non tender, no mass, no organomegaly, no bruit, non-distended Musculoskeletal: back normal, normal range of motion, gait/station normal, other - Lower extremities show some minimal erythema. Right tib-fib has previous scarring and there is 1 area of about 2 cm with scab/eschar with serous drainage. Psychiatric: mood/affect normal José Luis Collins MD Jul 05, 2020 06:37
--- NOTE | 2020-07-05 06:39 | NUR ---
NURSE HAND-OFF: Important Events on Shift:confused, colostomy bag Patient Status: stable Diet: reg Pending Orders: N Pending Results/Labs:AM labs Pending MD notification:N Latest Vital Signs: Temperature 97.5 , Pulse 79 , B/P 138 /70 , Respiratory Rate 18 , O2 SAT 94 , Room Air, O2 Flow Rate . Vital Sign Comment: [] Latest [place] Fall Score: 35 Fall Risk: Medium Risk Safety Measures: Call light Within Reach, Bed Alarm Zone 2, Side Rails Side Rails x2, Bed position Low and Locked. Fall Precautions: Yellow Socks Yellow Gown Door Sign Patient Fall Education Addendum: 07/05/20 at 0710 by KEYANNA VELAZQUEZ RN RN HAND-OFF: Report given to Rossy.
[2020-07-05 07:04] LABS: ANION GAP 6 mmol/L (5-15); BLOOD UREA NITROGEN 18 mg/dL (7-18); CALCIUM 8.5 MG/DL (8.5-10.1); CARBON DIOXIDE 31 MMOL/L (21-32); CHLORIDE 102 MMOL/L (98-107); CREATININE 0.8 MG/DL (0.55-1.30); POTASSIUM 4.5 MMOL/L (3.5-5.1); SODIUM 139 MMOL/L (136-145)
--- NOTE | 2020-07-05 07:19 | NUR ---
NURSE NOTES: Received report from CHARITO Finley. Patient observed to be awake, alert, and oriented x0. Seen lying bed, currently on room air no s/sx of SOB/Distress, no s/sx of pain or discomfort. Colostomy bag located at [facility], inplace and intact. No IV access site MD aware. Bed placed on lowest and locked position, call light placed within reach and will continue to monitor for any changes in condition.
[2020-07-05 07:23] LABS: BASOPHILS % (AUTO) 0.5 % (0.0-2.0); EOSINOPHILS % (AUTO) 0.1 % (0.0-3.0); HEMATOCRIT 50.7 % (37.0-47.0); LYMPHOCYTES % (AUTO) 30.7 % (20.0-45.0); MEAN CORPUSCULAR VOLUME 98 FL (80-99); MONOCYTES % (AUTO) 13.7 % (1.0-10.0); PLATELET COUNT 148 K/UL (150-450); RED BLOOD COUNT 5.19 M/UL (4.20-5.40); RED CELL DISTRIBUTION WIDTH 13.6 % (11.6-14.8); WHITE BLOOD COUNT 4.8 K/UL (4.8-10.8)
[2020-07-05] MEDS: PARoxetine HCL 20mg tab ORAL SCH (09:00)
[2020-07-05] MEDS: Heparin 5000 units/ml inj SUBQ SCH ×2 (09:00→20:06)
[2020-07-05] MEDS: Depakote 500mg tab ORAL SCH ×2 (09:47→20:06)
[2020-07-05] MEDS: Docusate 100mg cap ORAL SCH (09:48)
[2020-07-05] MEDS: Sennosides 8.6mg tab ORAL SCH (09:48)
[2020-07-05] MEDS: QUEtiapine 200mg tab ORAL SCH (09:48)
[2020-07-05] MEDS: OLANZapine 10mg tab ORAL SCH ×2 (09:48→17:12)
--- NOTE | 2020-07-05 11:35 | Psychiatry Consultation ---
Psychiatry Consultation Psychiatry Consultation Chief Complaint: Skin Rash/Abscess History of Present Illness: 64yo femalw patient agitated, conmfused and mood labille, cognition has declined below baseline with AMS. Allergies: Coded Allergies: No Known Allergies (Unverified , 07/03/20) Medication History Scheduled Cranberry Fruit Concentrate (Cranberry), 450 MG PO BID, (Reported) Divalproex Sodium* (Depakote Er*), 500 MG ORAL EVERY 12 HOURS, (Reported) Docusate Sodium* (Colace*), 100 MG ORAL DAILY, (Reported) Ferrous Sulfate* (Ferrous Sulfate*), 325 MG ORAL DAILY, (Reported) Multivitamin With Minerals (Multivitamins With Minerals*), 1 TAB ORAL DAILY, (Reported) Olanzapine* (Zyprexa*), 10 MG ORAL BID, (Reported) Paroxetine Hcl* (Paxil*), 20 MG ORAL DAILY, (Reported) Quetiapine Fumarate* (Seroquel*), 200 MG ORAL DAILY, (Reported) Rivaroxaban (Xarelto), 20 MG ORAL Evening, (Reported) Sennosides (Senna), 2 TAB PO BEDTIME, (Reported) Zinc Sulfate (Zinc Sulfate*), 220 MG ORAL DAILY, (Reported) Scheduled PRN Acetaminophen* (Acetaminophen 325MG Tablet*), 325 MG ORAL Q6H PRN for Mild Pain (Pain Scale 1-3), (Reported) Acetaminophen* (Acetaminophen Extra Strength*), 1,000 MG ORAL Q6H PRN for Moderate Pain (Pain Scale 4-6), (Reported) Ascorbate Calcium (Vitamin C), 500 MG PO DAILY PRN for supplement, (Reported) Na Phos,M-B/Na Phos,Di-Ba* (Fleet Enema*), 133 ML RECTAL DAILY PRN for Constipation, (Reported) Pantoprazole (Pantoprazole), 40 MG ORAL AC PRN for gerd, (Reported) Discontinued Medications Acetaminophen* (Tylenol*), 650 MG ORAL Q6HR PRN for MILD/TEMP, (Reported) Discontinued Reason: Prescription changed Divalproex Sodium* (Depakote*), 500 MG PO Q12HR, (Reported) Discontinued Reason: Prescription changed Magnesium Hydroxide* (Milk Of Magnesia*), 30 ML ORAL DAILY, (Reported) Discontinued Reason: MD discontinued med Rivaroxaban (Xarelto*), 20 MG ORAL DAILY, (Reported) Discontinued Reason: Prescription changed Zinc Gluconate (Zinc), 220 MG ORAL DAILY PRN for supplement, (Reported) Discontinued Reason: Prescription changed Objective Data Height (Feet): 5 Height (Inches): 6.00 Weight (Pounds): 200 Appearance: disheveled Behavior Mannerisms: poor eye contact Affect: constricted Mood: depressed, irritable, anxious Speech: dysarthric Thought Process: disorganized Thought Content: paranoia Perceptual Disturbances: auditory Suicidal Ideation: no plan Assessment/Plan Assessment/Plan: [place] Zyprexa 10mg PO BID and Risperdal 1mg PO BID with Seroquel 200mg PO qhs. Ativan 1mg PO q6h prn anxiety. 20minutes or Cognitive behavioral therapy provided whereas I helped the patient identify her automatic negative thoughts and helped her convert her negative thoughts to more positive thoughts. Transfer to psych at [place] when medically cleared Diagnosis [place] I: Schizoaffective Bipolar typw Drake Rivera MD Jul 05, 2020 11:35
--- NOTE | 2020-07-05 13:24 | NUR ---
DISCHARGE PLANNING PATIENT REFERRED BACK TO [facility] P [phone] F [phone]
--- NOTE | 2020-07-05 13:53 | General Progress Note ---
Subjective Constitutional: Reports: weakness Allergies: Coded Allergies: No Known Allergies (Unverified , 07/03/20) All Systems: reviewed and negative except above Subjective calm in room Objective Last 24 Hour Vital Signs Date Time Temp Pulse Resp B/P (MAP) Pulse Ox O2 Delivery O2 Flow Rate FiO2 07/05/20 12:00 97.7 98 20 111/73 (86) 94 07/05/20 09:00 Room Air 07/05/20 08:00 96.0 73 19 130/84 (99) 94 07/05/20 04:00 97.5 79 18 138/70 (92) 94 07/05/20 00:00 98.0 85 18 135/65 (88) 92 07/04/20 21:00 Room Air 07/04/20 20:00 97.7 101 20 142/87 (105) 92 07/04/20 16:00 99.0 91 20 155/95 (115) 94 Intake and Output 07/04/20 07/05/20 19:00 07:00 Intake Total 400 ml 500 ml Balance 400 ml 500 ml Intake Oral 400 ml 500 ml # Voids 4 4 # Bowel Movements 1 Laboratory Tests 07/05/20 05:35: White Blood Count 4.8, Red Blood Count 5.19, Hemoglobin 16.0, Hematocrit 50.7H, Mean Corpuscular Volume 98, Mean Corpuscular Hemoglobin 30.8, Mean Corpuscular Hemoglobin Concent 31.6L, Red Cell Distribution Width 13.6, Platelet Count 148L, Mean Platelet Volume 7.9, Neutrophils (%) (Auto) 55.0, Lymphocytes (%) (Auto) 30.7, Monocytes (%) (Auto) 13.7H, Eosinophils (%) (Auto) 0.1, Basophils (%) (Au to) 0.5, Sodium Level 139, Potassium Level 4.5, Chloride Level 102, Carbon Dioxide Level 31, Anion Gap 6, Blood Urea Nitrogen 18, Creatinine 0.8, Estimat Glomerular Filtration Rate > 60, Glucose Level 97, Calcium Level 8.5 Height (Feet): 5 Height (Inches): 6.00 Weight (Pounds): 200 General Appearance: lethargic EENT: normal ENT inspection Neck: normal alignment Cardiovascular: normal peripheral pulses, normal rate, regular rhythm Respiratory/Chest: chest wall non-tender, lungs clear, normal breath sounds Abdomen: normal bowel sounds, non tender, soft Extremities: normal inspection Edema: no edema noted Arm (L), no edema noted Arm (R), no edema noted Leg (L), no edema noted Leg (R), no edema noted Pedal (L), no edema noted Pedal (R), no edema noted Generalized Neurologic: motor weakness Skin: normal pigmentation, warm/dry Assessment/Plan Problem List: (1) Breast cancer ICD Codes: C50.919 - Malignant neoplasm of unspecified site of unspecified female breast SNOMED: 372006645 (2) COPD (chronic obstructive pulmonary disease) ICD Codes: J44.9 - Chronic obstructive pulmonary disease, unspecified SNOMED: 51594667 (3) Paranoia ICD Codes: F22 - Delusional disorders SNOMED: 044098444 (4) Bilateral lower leg cellulitis ICD Codes: L03.116 - Cellulitis of left lower limb; L03.115 - Cellulitis of right lower limb SNOMED: 141523464 Status: unchanged Assessment/Plan: wound care, abx psyc tx cbc bmp am psyc transfer BandarIam MarioLelo DO Jul 05, 2020 13:53
--- NOTE | 2020-07-05 14:05 | NUR ---
*-*DISCHARGE PLANNING*-* PATIENT HAS BEEN REFERRED TO: [facility] P: [phone] Addendum: 07/05/20 at 1505 by FERDINAND WRIGHT CM DISREGARD ABOVE NOTE
--- NOTE | 2020-07-05 14:08 | NUR ---
MONKEY KEEPER NOTE JUAN M spoke michele Alvarez from [facility] [phone] and faxed the referral packet to [phone]. Awaiting for call back after review. Addendum: 07/05/20 at 1517 by DERRICK MCGOWAN JUAN M spoke michele Atkinson that the packet has been received and the review is pending at this time.
--- NOTE | 2020-07-05 15:05 | NUR ---
*-*DISCHARGE PLANNING*-* PATIENT HAS BEEN REFERRED TO: [facility] P: [phone] S/W DAJA, WILL CALL BACK AFTER REVIEW
[2020-07-05] MEDS: D5 1/2NS 1,000 ML IV SCH (15:50)
--- NOTE | 2020-07-05 16:25 | NUR ---
*-*DISCHARGE PLANNING*-* PATIENT HAS BEEN REFERRED TO: [facility] P: [phone]
--- NOTE | 2020-07-05 16:25 | NUR ---
*-*DISCHARGE PLANNING*-* PATIENT HAS BEEN REFERRED TO: [facility] P: [phone] S/W AUDIA, NO [facility] BED AVAILABLE
--- NOTE | 2020-07-05 16:26 | NUR ---
STONE CHIMNEY MASON NOTE SW faxed additional notes to [facility] [phone] as per request.
--- NOTE | 2020-07-05 16:39 | NUR ---
*-*DISCHARGE PLANNING*-* PATIENT HAS BEEN REFERRED TO: [facility] P: [phone] S/W ED, ADMISSIONS NOT AVAILABLE, CALL BACK
--- NOTE | 2020-07-05 16:45 | NUR ---
BROACH GRINDER NOTE JUAN M spoke w/ Kim from [facility] that the clinician will be available to evaluate pt through telehealth soon. Kim was provided w/ 4 East extension [phone] as this SW is not available after 5:30pm. Addendum: 07/05/20 at 1651 by DERRICK MCGOWAN JUAN M received a call from Kim that [facility] will not able to accommodate this pt.
--- NOTE | 2020-07-05 16:48 | Infectious Diseases Prog Note ---
Assessment/Plan Assessment: R>L LE cellulitis -wound cx S. aureus (sensi p) Afebrile No leukocytosis -u/a neg COPD paranoid schizophrenia R breast CA sp mastectomy [facility] resident ([facility]) Plan: -Cont Keflex #2 (abx #3) and add PO Bactrim -07/04 SP ANcef #1 -07/03 SP Ceftriaxone x1 -f/u cx -Monitor CBC/CMP, temperatures -wound care per hospital protocol Thank you for consulting [facility]. Will continue to follow along with you. Discussed with RN. Subjective Allergies: Coded Allergies: No Known Allergies (Unverified , 07/03/20) afebrile lost IV access no leukocytosis Objective Last 24 Hour Vital Signs Date Time Temp Pulse Resp B/P (MAP) Pulse Ox O2 Delivery O2 Flow Rate FiO2 07/05/20 16:00 96.6 88 19 144/79 (100) 95 07/05/20 12:00 97.7 98 20 111/73 (86) 94 07/05/20 09:00 Room Air 07/05/20 08:00 96.0 73 19 130/84 (99) 94 07/05/20 04:00 97.5 79 18 138/70 (92) 94 07/05/20 00:00 98.0 85 18 135/65 (88) 92 07/04/20 21:00 Room Air 07/04/20 20:00 97.7 101 20 142/87 (105) 92 Height (Feet): 5 Height (Inches): 6.00 Weight (Pounds): 200 GENERAL: Confused in bed, refusing to answer questions. CARDIOVASCULAR: No murmur. LUNGS: Poor air exchange. ABDOMEN: Bowel sounds distant. EXTREMITIES: No cyanosis, clubbing, or edema. R marino w evidence of prior surgery- redneses, swelling, and warmth; L LE lesser degree of erythema or swelling NEUROLOGIC: The patient moves all extremities, slightly weak. Microbiology Date/Time Source Procedure Growth Status 07/03/20 23:10 Rectal Mucosa Received 07/03/20 22:12 Other(Specify in comment) Gram Stain - Final Resulted 07/03/20 22:12 Wound Culture - Preliminary Staphylococcus Aureus Resulted Laboratory Tests Test 07/05/20 05:35 White Blood Count 4.8 K/UL (4.8-10.8) Red Blood Count 5.19 M/UL (4.20-5.40) Hemoglobin 16.0 G/DL (12.0-16.0) Hematocrit 50.7 % (37.0-47.0) H Mean Corpuscular Volume 98 FL (80-99) Mean Corpuscular Hemoglobin 30.8 PG (27.0-31.0) Mean Corpuscular Hemoglobin Concent 31.6 G/DL (32.0-36.0) L Red Cell Distribution Width 13.6 % (11.6-14.8) Platelet Count 148 K/UL (150-450) L Mean Platelet Volume 7.9 FL (6.5-10.1) Neutrophils (%) (Auto) 55.0 % (45.0-75.0) Lymphocytes (%) (Auto) 30.7 % (20.0-45.0) Monocytes (%) (Auto) 13.7 % (1.0-10.0) H Eosinophils (%) (Auto) 0.1 % (0.0-3.0) Basophils (%) (Auto) 0.5 % (0.0-2.0) Sodium Level 139 MMOL/L (136-145) Potassium Level 4.5 MMOL/L (3.5-5.1) Chloride Level 102 MMOL/L (98-107) Carbon Dioxide Level 31 MMOL/L (21-32) Anion Gap 6 mmol/L (5-15) Blood Urea Nitrogen 18 mg/dL (7-18) Creatinine 0.8 MG/DL (0.55-1.30) Estimat Glomerular Filtration Rate > 60 mL/min (>60) Glucose Level 97 MG/DL (74-106) Calcium Level 8.5 MG/DL (8.5-10.1) Current Medications Medications (Trade) Dose Ordered Sig/Alli Route PRN Reason Start Time Stop Time Status Last Admin Dose Admin Cephalexin (Keflex) 500 mg Q6HR ORAL 07/04/20 18:00 07/11/20 17:59 07/05/20 12:12 Dextrose/Sodium Chloride 1,000 ml @ 60 mls/hr [id number] IV 07/04/20 06:30 08/03/20 06:29 07/04/20 06:29 Divalproex Sodium (Depakote) 500 mg Q12HR ORAL 07/04/20 09:00 08/03/20 08:59 07/05/20 09:47 Docusate Sodium (Colace) 100 mg DAILY ORAL 07/04/20 09:00 08/03/20 08:59 07/05/20 09:48 Ferrous Sulfate (Feosol) 325 mg DAILY ORAL 07/04/20 09:00 10/02/20 08:59 07/05/20 09:47 Heparin Sodium (Porcine) (Heparin 5000 units/ml) 5,000 units EVERY 12 HOURS SUBQ 07/04/20 09:00 08/18/20 08:59 07/04/20 20:23 Lorazepam (Ativan) 1 mg Q6H PRN ORAL For Anxiety 07/04/20 14:45 07/11/20 14:44 Morphine Sulfate (Morphine Sulfate) 2 mg Q4H PRN IVP For Pain 07/04/20 06:15 07/11/20 06:14 Olanzapine (ZyPREXA) 10 mg BID ORAL 07/04/20 09:00 08/18/20 08:59 07/05/20 09:48 Pantoprazole (Protonix) 40 mg DAILY ORAL 07/04/20 09:00 08/03/20 08:59 07/05/20 09:48 Paroxetine HCl (Paxil) 20 mg DAILY ORAL 07/04/20 09:00 08/03/20 08:59 07/05/20 09:00 Quetiapine Fumarate (SEROqueL) 200 mg DAILY ORAL 07/04/20 09:00 08/18/20 08:59 07/05/20 09:48 Risperidone (RisperDAL) 1 mg BID ORAL 07/04/20 18:00 08/18/20 17:59 07/05/20 09:48 Sennosides (Senokot) 8.6 mg DAILY ORAL 07/04/20 09:00 08/03/20 08:59 07/05/20 09:48 Omaira Eduardo M.D. Jul 05, 2020 16:48
--- NOTE | 2020-07-05 19:19 | NUR ---
NURSE HAND-OFF: Important Events on Shift:atb tx, wound care, colostomy bag change Patient Status: stable Diet: reg Pending Orders: n/a Pending Results/Labs:n/a Pending MD notification:n/a Latest Vital Signs: Temperature 96.6 , Pulse 88 , B/P 144 /79 , Respiratory Rate 19 , O2 SAT 95 , Room Air, O2 Flow Rate . Vital Sign Comment: stable Latest Santizo Fall Score: 35 Fall Risk: Medium Risk Safety Measures: Call light Within Reach, Bed Alarm Zone 2, Side Rails Side Rails x2, Bed position Low and Locked. Fall Precautions: Yellow Socks Yellow Gown Door Sign Patient Fall Education Report given to CHARITO Mcdaniels.
--- NOTE | 2020-07-05 20:00 | NUR ---
NURSE NOTES: Patient received ambulating around the room; no acute distress noted. Patient noted to be pacing back and forth to the bathroom, compulsively washing hands and flushing the toilet. Appears very distracted but cooperative. Noted with right leg redness with open wound and left elbow redness. No IV access, MD aware, per Am shift. Will continue with plan of care.
[2020-07-05] MEDS: Bactrim-DS 1 tab ORAL SCH (20:05)
--- NOTE | 2020-07-05 20:32 | NUR ---
NURSE NOTES: Noted with only a plastic tape over the right leg wound. Plastic tape is removed along with dried yellow slough. Wound is cleansed with NS, applied therahoney for the residual slough and covered with optifoam. Patient tolerated well.
--- NOTE | 2020-07-05 22:23 | NUR ---
NURSE NOTES: Patient had wound; unable to save wound assessment part of the physical assessments interventions with error re: Wound cream/ointment box. Spoke with IT, unable to fix tonight-recommend placing note re: wound for now. Wound assessments noted on comments section of integumentary of physical assessments.
[2020-07-06] VITALS (7 sets, daily range): BP systolic 120–138; BP diastolic 58–78
--- NOTE | 2020-07-06 01:42 | NUR ---
NURSE NOTES: Kavon from Microbiology reported patient is + for MRSA nares. Message left to Dr. Eduardo's pager. Awaiting response. Addendum: 07/06/20 at 0150 by STEPHAN AMOR RN RN Dr. Eduardo called back with no new orders at this time.
[2020-07-06] MEDS: Cephalexin 500mg cap ORAL SCH ×2 (05:15→12:19)
--- NOTE | 2020-07-06 07:32 | NUR ---
NURSE HAND-OFF: Important Events on Shift:[wound care done] Patient Status: [stable] Diet: [Regular] Pending Orders: [] Pending Results/Labs:[] Pending MD notification:[] Latest Vital Signs: Temperature 97.8 , Pulse 72 , B/P 138 /74 , Respiratory Rate 19 , O2 SAT 96 , Room Air, O2 Flow Rate . Vital Sign Comment: [] Latest Santizo Fall Score: 50 Fall Risk: High Risk Safety Measures: Call light Within Reach, Bed Alarm Zone 2, Side Rails Side Rails x2, Bed position Low and Locked. Fall Precautions: Yellow Socks Patient Fall Education Report given to [Jyoti RN].
--- NOTE | 2020-07-06 07:49 | NUR ---
NURSE NOTES: Patient awake and alert to name,respirations unlabored. Noted optiform dressing to the lower right leg.Patient ate breakfast. ,call light within reach.
[2020-07-06 08:00] LABS: BASOPHILS % (AUTO) 0.9 % (0.0-2.0); HEMATOCRIT 45.5 % (37.0-47.0); HEMOGLOBIN 14.6 G/DL (12.0-16.0); LYMPHOCYTES % (AUTO) 34.7 % (20.0-45.0); MEAN CORPUSCULAR VOLUME 95 FL (80-99); MONOCYTES % (AUTO) 9.5 % (1.0-10.0); NEUTROPHILS % (AUTO) 54.9 % (45.0-75.0); PLATELET COUNT 128 K/UL (150-450); RED CELL DISTRIBUTION WIDTH 13.6 % (11.6-14.8); WHITE BLOOD COUNT 4.3 K/UL (4.8-10.8)
[2020-07-06 08:15] LABS: ANION GAP 6 mmol/L (5-15); BLOOD UREA NITROGEN 18 mg/dL (7-18); CALCIUM 8.2 MG/DL (8.5-10.1); CARBON DIOXIDE 31 MMOL/L (21-32); CHLORIDE 104 MMOL/L (98-107); CREATININE 0.9 MG/DL (0.55-1.30); POTASSIUM 4.3 MMOL/L (3.5-5.1); SODIUM 140 MMOL/L (136-145)
[2020-07-06] MEDS: D5 1/2NS 1,000 ML IV SCH ×2 (08:30→23:47)
[2020-07-06] MEDS: Bactrim-DS 1 tab ORAL SCH ×2 (08:39→20:32)
[2020-07-06] MEDS: PARoxetine HCL 20mg tab ORAL SCH (08:40)
[2020-07-06] MEDS: Depakote 500mg tab ORAL SCH ×2 (08:40→20:32)
[2020-07-06] MEDS: Docusate 100mg cap ORAL SCH (08:40)
[2020-07-06] MEDS: OLANZapine 10mg tab ORAL SCH ×2 (08:41→18:56)
[2020-07-06] MEDS: Sennosides 8.6mg tab ORAL SCH (08:41)
[2020-07-06] MEDS: QUEtiapine 200mg tab ORAL SCH (08:41)
--- NOTE | 2020-07-06 08:45 | Consultation ---
DATE OF CONSULTATION: 07/05/2020 PSYCHOTHERAPY CONSULTATION PROGRESS NOTE CONSULTING PHYSICIAN: Arjun Caba PsyD TREATING ATTENDING PHYSICIAN: Iam Portillo D.O. HISTORY OF PRESENT ILLNESS: The patient is a 64-year-old female patient. The patient has a history of mental illness, was brought to the hospital for cellulitis. She has been agitated, disorganized, irritable. For these reasons, she was referred for psychotherapeutic services. She ultimately was found to have 01:12 right breast cancer. She has a history of schizoaffective disorder, bipolar type. I assessed this patient. The patient was 01:25 very disorganized, irritable, talking to herself, responding to internal stimuli and has been anxious. She mumbles to herself and is irritable. Mood is labile. No indication of suicidal or homicidal thoughts of ideation. The patient appeared to be responding to internal stimuli. PAST MEDICAL HISTORY: History of COPD, past medical history of right breast cancer, and cellulitis. ALLERGIES: The patient has no known drug allergies. SUBSTANCE ABUSE HISTORY: There is no indication of alcohol use, illicit substance use, or smoking cigarettes. PSYCHIATRIC HISTORY: The patient has history of schizoaffective disorder, has been treated with psychotropic medications in the past. SOCIAL HISTORY: The patient is a 64-year-old female patient from [facility]. Financially sustained through [facility]. MENTAL STATUS EXAMINATION: She is alert, oriented to person and place. Mood is dysphoric. Affect is congruent. Thought process disorganized. Thought content confused. She has poor attention and concentration. Poor insight, judgment, impulse control. DIAGNOSES: 1. Schizoaffective disorder, bipolar type. 2. History of right breast cancer. 3. COPD. 4. Cellulitis. 5. Psychosocial stressors are moderate. 6. Strength. The patient is from a long term facility and she is very disoriented and responding to internal stimuli. I ASSESSED THIS PATIENT. I PROVIDED THE PATIENT WITH: 7. Reality orientation, orientating the patient to person, place, time, and situation. 8. Supportive psychotherapy encouraging the patient 02:45 utilizing positive communication skills 02:49. Plan is to maintain medication compliance with positive coping skills in stabilizing the thoughts and behaviors. Psychotherapy services for this patient was 45 minutes. This clinician has reviewed the patient's chart and discussed the treatment with treatment team. Arjun Caba PsyD. DR: TAWANA JOB#: [id number] CC:
[2020-07-06] MEDS: Heparin 5000 units/ml inj SUBQ SCH ×2 (08:52→19:50)
--- NOTE | 2020-07-06 09:28 | Hematology/Onc Progress Note ---
Assessment/Plan Assessment/Plan Assesment and Recs # Breast cancer on the right side s/p mastectomy, is not on hormonal therapy --> obtain outside records, order placed --> hold off hormonal medications, surgery may be years ago --> eval for recurrence as needed --> 06/04 unable to obtain records per snf now # Erythrocytosis likely is due to dehydration --> trend hgb as needed --> hgb 16.5-->14.6 --> no hemolysis noted # Leukopenia with Monocytosis --> likely due to reactive process --> wbc remains 6-->4 --> hep and hiv ordered # Bilateral lower leg cellulitis --> as per id on abx, right leg with gauze over it --> wound care --> eval as needed surg # Dvt ppx lovenox sq Appreciate consultation and brian MCNEILL Subjective Constitutional: Denies: no symptoms, chills, fever, malaise, weakness, other Respiratory: Denies: no symptoms, cough, shortness of breath, SOB with excertion, SOB at rest, sputum, wheezing, other Gastrointestinal/Abdominal: Denies: no symptoms, abdomen distended, abdominal pain, black stools, tarry stools, blood in stool, constipated, diarrhea, difficulty swallowing, nausea, poor appetite, poor fluid intake, rectal bleeding, vomiting, other Genitourinary: Denies: no symptoms, burning, discharge, frequency, flank pain, hematuria, incontinence, pain, urgency, other Neurologic/Psychiatric: Denies: no symptoms, anxiety, depressed, emotional problems, headache, numbness, paresthesia, pre-existing deficit, seizure, tingling, tremors, weakness, other Endocrine: Denies: no symptoms, excessive sweating, flushing, intolerance to cold, intolerance to heat, increased hunger, increased thirst, increased urine, unexplained weight gain, unexplained weight loss, other Hematologic/Lymphatic: Denies: no symptoms, anemia, easy bleeding, easy bruising, adenopathy, other Allergies: Coded Allergies: No Known Allergies (Unverified , 07/03/20) Subjective 07/05 llq colostomy bag, a+ox1 no bleeding, labs reviewed, brian rn, hgb 16 07/06 wbc is lower, no bleeding, otherwise no f/c, no night sweats Objective Objective Current Medications Medications (Trade) Dose Ordered Sig/Alli Route PRN Reason Start Time Stop Time Status Last Admin Dose Admin Cephalexin (Keflex) 500 mg Q6HR ORAL 07/04/20 18:00 07/11/20 17:59 07/06/20 05:15 Dextrose/Sodium Chloride 1,000 ml @ 60 mls/hr [id number] IV 07/04/20 06:30 08/03/20 06:29 07/04/20 06:29 Divalproex Sodium (Depakote) 500 mg Q12HR ORAL 07/04/20 09:00 08/03/20 08:59 07/06/20 08:40 Docusate Sodium (Colace) 100 mg DAILY ORAL 07/04/20 09:00 08/03/20 08:59 07/06/20 08:40 Ferrous Sulfate (Feosol) 325 mg DAILY ORAL 07/04/20 09:00 10/02/20 08:59 07/06/20 08:40 Heparin Sodium (Porcine) (Heparin 5000 units/ml) 5,000 units EVERY 12 HOURS SUBQ 07/04/20 09:00 08/18/20 08:59 07/04/20 20:23 Lorazepam (Ativan) 1 mg Q6H PRN ORAL For Anxiety 07/04/20 14:45 07/11/20 14:44 Morphine Sulfate (Morphine Sulfate) 2 mg Q4H PRN IVP For Pain 07/04/20 06:15 07/11/20 06:14 Olanzapine (ZyPREXA) 10 mg BID ORAL 07/04/20 09:00 08/18/20 08:59 07/06/20 08:41 Pantoprazole (Protonix) 40 mg DAILY ORAL 07/04/20 09:00 08/03/20 08:59 07/06/20 08:41 Paroxetine HCl (Paxil) 20 mg DAILY ORAL 07/04/20 09:00 08/03/20 08:59 07/06/20 08:40 Quetiapine Fumarate (SEROqueL) 200 mg DAILY ORAL 07/04/20 09:00 08/18/20 08:59 07/06/20 08:41 Risperidone (RisperDAL) 1 mg BID ORAL 07/04/20 18:00 08/18/20 17:59 07/06/20 08:41 Sennosides (Senokot) 8.6 mg DAILY ORAL 07/04/20 09:00 08/03/20 08:59 07/06/20 08:41 Trimethoprim/ Sulfamethoxazole (Bactrim-DS) 1 tab Q12HR ORAL 07/05/20 21:00 07/12/20 20:59 07/06/20 08:39 Last 24 Hour Vital Signs Date Time Temp Pulse Resp B/P (MAP) Pulse Ox O2 Delivery O2 Flow Rate FiO2 07/06/20 08:34 97.5 76 18 120/67 (84) 96 07/06/20 04:05 97.8 72 19 138/74 (95) 96 07/05/20 23:40 97.9 73 19 136/73 (94) 96 07/05/20 21:00 Room Air 07/05/20 20:00 97.6 71 19 144/73 (96) 96 07/05/20 16:00 96.6 88 19 144/79 (100) 95 07/05/20 12:00 97.7 98 20 111/73 (86) 94 07/05/20 09:00 Room Air 07/05/20 08:00 96.0 73 19 130/84 (99) 94 07/05/20 04:00 97.5 79 18 138/70 (92) 94 07/05/20 00:00 98.0 85 18 135/65 (88) 92 07/04/20 21:00 Room Air 07/04/20 20:00 97.7 101 20 142/87 (105) 92 07/04/20 16:00 99.0 91 20 155/95 (115) 94 07/04/20 12:00 98.1 95 18 132/73 (92) 94 Intake and Output 07/05/20 07/06/20 19:00 07:00 Intake Total 1000 ml 400 ml Balance 1000 ml 400 ml Intake Oral 1000 ml 400 ml # Voids 5 # Bowel Movements 1 1 Labs Test 07/03/20 22:20 07/03/20 22:45 07/04/20 09:25 07/05/20 05:35 White Blood Count 4.9 K/UL (4.8-10.8) 5.7 K/UL (4.8-10.8) 4.8 K/UL (4.8-10.8) Red Blood Count 5.08 M/UL (4.20-5.40) 5.21 M/UL (4.20-5.40) 5.19 M/UL (4.20-5.40) Hemoglobin 15.4 G/DL (12.0-16.0) 16.1 G/DL (12.0-16.0) 16.0 G/DL (12.0-16.0) Hematocrit 48.2 % (37.0-47.0) 50.6 % (37.0-47.0) 50.7 % (37.0-47.0) Mean Corpuscular Volume 95 FL (80-99) 97 FL (80-99) 98 FL (80-99) Mean Corpuscular Hemoglobin 30.4 PG (27.0-31.0) 30.9 PG (27.0-31.0) 30.8 PG (27.0-31.0) Mean Corpuscular Hemoglobin Concent 32.0 G/DL (32.0-36.0) 31.8 G/DL (32.0-36.0) 31.6 G/DL (32.0-36.0) Red Cell Distribution Width 13.5 % (11.6-14.8) 13.1 % (11.6-14.8) 13.6 % (11.6-14.8) Platelet Count 152 K/UL (150-450) 166 K/UL (150-450) 148 K/UL (150-450) Mean Platelet Volume 8.0 FL (6.5-10.1) 7.8 FL (6.5-10.1) 7.9 FL (6.5-10.1) Neutrophils (%) (Auto) 52.0 % (45.0-75.0) 54.3 % (45.0-75.0) 55.0 % (45.0-75.0) Lymphocytes (%) (Auto) 34.2 % (20.0-45.0) 32.0 % (20.0-45.0) 30.7 % (20.0-45.0) Monocytes (%) (Auto) 13.2 % (1.0-10.0) 13.1 % (1.0-10.0) 13.7 % (1.0-10.0) Eosinophils (%) (Auto) 0.1 % (0.0-3.0) 0.0 % (0.0-3.0) 0.1 % (0.0-3.0) Basophils (%) (Auto) 0.5 % (0.0-2.0) 0.7 % (0.0-2.0) 0.5 % (0.0-2.0) Sodium Level 141 MMOL/L (136-145) 140 MMOL/L (136-145) 139 MMOL/L (136-145) Potassium Level 4.1 MMOL/L (3.5-5.1) 4.1 MMOL/L (3.5-5.1) 4.5 MMOL/L (3.5-5.1) Chloride Level 104 MMOL/L (98-107) 104 MMOL/L (98-107) 102 MMOL/L (98-107) Carbon Dioxide Level 34 MMOL/L (21-32) 28 MMOL/L (21-32) 31 MMOL/L (21-32) Anion Gap 3 mmol/L (5-15) 8 mmol/L (5-15) 6 mmol/L (5-15) Blood Urea Nitrogen 21 mg/dL (7-18) 19 mg/dL (7-18) 18 mg/dL (7-18) Creatinine 1.0 MG/DL (0.55-1.30) 0.9 MG/DL (0.55-1.30) 0.8 MG/DL (0.55-1.30) Estimat Glomerular Filtration Rate 56.2 mL/min (>60) > 60 mL/min (>60) > 60 mL/min (>60) Glucose Level 124 MG/DL (74-106) 116 MG/DL (74-106) 97 MG/DL (74-106) Calcium Level 8.9 MG/DL (8.5-10.1) 8.8 MG/DL (8.5-10.1) 8.5 MG/DL (8.5-10.1) Urine Color Pale yellow Urine Appearance Clear Urine pH 6 (4.5-8.0) Urine Specific [place] 1.020 (1.005-1.035) Urine Protein Negative (NEGATIVE) Urine Glucose (UA) Negative (NEGATIVE) Urine Ketones 1+ (NEGATIVE) Urine Blood Negative (NEGATIVE) Urine Nitrite Negative (NEGATIVE) Urine Bilirubin Negative (NEGATIVE) Urine Urobilinogen Normal MG/DL (0.0-1.0) Urine Leukocyte Esterase Negative (NEGATIVE) Urine RBC 0-2 /HPF (0 - 2) Urine WBC 0 /HPF (0 - 2) Urine Squamous Epithelial Cells Few /LPF (NONE/OCC) Urine Bacteria None /HPF (NONE) Test 07/06/20 07:35 White Blood Count 4.3 K/UL (4.8-10.8) Red Blood Count 4.80 M/UL (4.20-5.40) Hemoglobin 14.6 G/DL (12.0-16.0) Hematocrit 45.5 % (37.0-47.0) Mean Corpuscular Volume 95 FL (80-99) Mean Corpuscular Hemoglobin 30.4 PG (27.0-31.0) Mean Corpuscular Hemoglobin Concent 32.1 G/DL (32.0-36.0) Red Cell Distribution Width 13.6 % (11.6-14.8) Platelet Count 128 K/UL (150-450) Mean Platelet Volume 7.7 FL (6.5-10.1) Neutrophils (%) (Auto) 54.9 % (45.0-75.0) Lymphocytes (%) (Auto) 34.7 % (20.0-45.0) Monocytes (%) (Auto) 9.5 % (1.0-10.0) Eosinophils (%) (Auto) 0.0 % (0.0-3.0) Basophils (%) (Auto) 0.9 % (0.0-2.0) Sodium Level 140 MMOL/L (136-145) Potassium Level 4.3 MMOL/L (3.5-5.1) Chloride Level 104 MMOL/L (98-107) Carbon Dioxide Level 31 MMOL/L (21-32) Anion Gap 6 mmol/L (5-15) Blood Urea Nitrogen 18 mg/dL (7-18) Creatinine 0.9 MG/DL (0.55-1.30) Estimat Glomerular Filtration Rate > 60 mL/min (>60) Glucose Level 112 MG/DL (74-106) Calcium Level 8.2 MG/DL (8.5-10.1) Height (Feet): 5 Height (Inches): 6.00 Weight (Pounds): 200 Objective Physical Exam Vitals: unremarkable Sp02 EP Interpretation: reviewed, normal General Appearance: well appearing Heent: normocephalic, atraumatic, hearing grossly normal, normal pharynx Neck: full range of motion, supple, no meningismus Respiratory: chest non-tender, lungs clear, normal breath sounds Cardiovascular: regular rate, rhythm, no murmur +++scar right breast Gastrointestinal: normal bowel sounds, non tender, no mass, no organomegaly, no bruit, non-distended Musculoskeletal: back normal, normal range of motion, gait/station normal, other - Lower extremities show some minimal erythema. Right tib-fib has previous scarring and there is 1 area of about 2 cm with scab/eschar with serous drainage. Psychiatric: mood/affect normal José Luis Collins MD Jul 06, 2020 09:28
--- NOTE | 2020-07-06 10:08 | General Progress Note ---
Subjective Constitutional: Reports: weakness Allergies: Coded Allergies: No Known Allergies (Unverified , 07/03/20) All Systems: reviewed and negative except above Subjective calm in room Objective Last 24 Hour Vital Signs Date Time Temp Pulse Resp B/P (MAP) Pulse Ox O2 Delivery O2 Flow Rate FiO2 07/06/20 08:34 97.5 76 18 120/67 (84) 96 07/06/20 04:05 97.8 72 19 138/74 (95) 96 07/05/20 23:40 97.9 73 19 136/73 (94) 96 07/05/20 21:00 Room Air 07/05/20 20:00 97.6 71 19 144/73 (96) 96 07/05/20 16:00 96.6 88 19 144/79 (100) 95 07/05/20 12:00 97.7 98 20 111/73 (86) 94 Intake and Output 07/05/20 07/06/20 19:00 07:00 Intake Total 1000 ml 400 ml Balance 1000 ml 400 ml Intake Oral 1000 ml 400 ml # Voids 5 # Bowel Movements 1 1 Laboratory Tests 07/06/20 07:35: White Blood Count 4.3L, Red Blood Count 4.80, Hemoglobin 14.6, Hematocrit 45.5, Mean Corpuscular Volume 95, Mean Corpuscular Hemoglobin 30.4, Mean Corpuscular Hemoglobin Concent 32.1, Red Cell Distribution Width 13.6, Platelet Count 128L, Mean Platelet Volume 7.7, Neutrophils (%) (Auto) 54.9, Lymphocytes (%) (Auto) 34.7, Monocytes (%) (Auto) 9.5, Eosinophils (%) (Auto) 0.0, Basophils (%) (Auto) 0.9, Sodium Level 140, Potassium Level 4.3, Chloride Level 104, Carbon Dioxide Level 31, Anion Gap 6, Blood Urea Nitrogen 18, Creatinine 0.9, Estimat Glomerular Filtration Rate > 60, Glucose Level 112H, Calcium Level 8.2L, Hepatitis A IgM Antibody [Pending], Hepatitis B Surface Antigen [Pending], Hepatitis B Core IgM Antibody [Pending], Hepatitis C Antibody [Pending], HIV (1&2) Antibody Rapid Negative Height (Feet): 5 Height (Inches): 6.00 Weight (Pounds): 200 General Appearance: lethargic EENT: normal ENT inspection Neck: normal alignment Cardiovascular: normal peripheral pulses, normal rate, regular rhythm Respiratory/Chest: chest wall non-tender, lungs clear, normal breath sounds Abdomen: normal bowel sounds, non tender, soft Extremities: normal inspection Edema: no edema noted Arm (L), no edema noted Arm (R), no edema noted Leg (L), no edema noted Leg (R), no edema noted Pedal (L), no edema noted Pedal (R), no edema noted Generalized Neurologic: motor weakness Skin: normal pigmentation, warm/dry Assessment/Plan Problem List: (1) Breast cancer ICD Codes: C50.919 - Malignant neoplasm of unspecified site of unspecified female breast SNOMED: 745057015 (2) COPD (chronic obstructive pulmonary disease) ICD Codes: J44.9 - Chronic obstructive pulmonary disease, unspecified SNOMED: 21938794 (3) Paranoia ICD Codes: F22 - Delusional disorders SNOMED: 787891882 (4) Bilateral lower leg cellulitis ICD Codes: L03.116 - Cellulitis of left lower limb; L03.115 - Cellulitis of right lower limb SNOMED: 634036192 Status: stable, progressing Assessment/Plan: wound care, abx psyc tx cbc bmp am psyc transfer Iam Portillo DO Jul 06, 2020 10:08
--- NOTE | 2020-07-06 10:33 | Psychiatry Consultation ---
Psychiatry Consultation Psychiatry Consultation Chief Complaint: Skin Rash/Abscess History of Present Illness: This is a 64-year-old female patient is got altered mental status confusion dis organized thought process declining cognition below her baseline she is got feelings of helplessness helplessness and her mood lability has worsened secondary to stress from [facility] continues to have some mood lability especially requires daily psychiatric consultation as requested by her attending physician Mental status examination: 64-year-old female appearance disheveled at irritable agitated affect guarded strictest intellect poor mood depressed anxious moderately psychomotor station attention span is poor orientation x2 Thought processes are logical thought content arterialized mixed. Delusions adjustment support insight and judgment is poor Allergies: Coded Allergies: No Known Allergies (Unverified , 07/03/20) Medication History Scheduled Cranberry Fruit Concentrate (Cranberry), 450 MG PO BID, (Reported) Divalproex Sodium* (Depakote Er*), 500 MG ORAL EVERY 12 HOURS, (Reported) Docusate Sodium* (Colace*), 100 MG ORAL DAILY, (Reported) Ferrous Sulfate* (Ferrous Sulfate*), 325 MG ORAL DAILY, (Reported) Multivitamin With Minerals (Multivitamins With Minerals*), 1 TAB ORAL DAILY, (Reported) Olanzapine* (Zyprexa*), 10 MG ORAL BID, (Reported) Paroxetine Hcl* (Paxil*), 20 MG ORAL DAILY, (Reported) Quetiapine Fumarate* (Seroquel*), 200 MG ORAL DAILY, (Reported) Rivaroxaban (Xarelto), 20 MG ORAL Evening, (Reported) Sennosides (Senna), 2 TAB PO BEDTIME, (Reported) Zinc Sulfate (Zinc Sulfate*), 220 MG ORAL DAILY, (Reported) Scheduled PRN Acetaminophen* (Acetaminophen 325MG Tablet*), 325 MG ORAL Q6H PRN for Mild Pain (Pain Scale 1-3), (Reported) Acetaminophen* (Acetaminophen Extra Strength*), 1,000 MG ORAL Q6H PRN for Moderate Pain (Pain Scale 4-6), (Reported) Ascorbate Calcium (Vitamin C), 500 MG PO DAILY PRN for supplement, (Reported) Na Phos,M-B/Na Phos,Di-Ba* (Fleet Enema*), 133 ML RECTAL DAILY PRN for Constipation, (Reported) Pantoprazole (Pantoprazole), 40 MG ORAL AC PRN for gerd, (Reported) Discontinued Medications Acetaminophen* (Tylenol*), 650 MG ORAL Q6HR PRN for MILD/TEMP, (Reported) Discontinued Reason: Prescription changed Divalproex Sodium* (Depakote*), 500 MG PO Q12HR, (Reported) Discontinued Reason: Prescription changed Magnesium Hydroxide* (Milk Of Magnesia*), 30 ML ORAL DAILY, (Reported) Discontinued Reason: MD discontinued med Rivaroxaban (Xarelto*), 20 MG ORAL DAILY, (Reported) Discontinued Reason: Prescription changed Zinc Gluconate (Zinc), 220 MG ORAL DAILY PRN for supplement, (Reported) Discontinued Reason: Prescription changed Objective Data Height (Feet): 5 Height (Inches): 6.00 Weight (Pounds): 200 Assessment/Plan Assessment/Plan: Cointinue Zyprexa 10mg PO BID and Risperdal 1mg PO BID with Seroquel 200mg PO qhs. Ativan 1mg PO q6h prn anxiety. 20minutes or Cognitive behavioral therapy provided whereas I helped the patient identify her automatic negative thoughts and helped her convert her negative thoughts to more positive thoughts. Transfer to psych at [facility] when medically cleared Diagnosis [place] I: Schizophrenia with acute exacerbation Drake Rivera MD Jul 06, 2020 10:33
--- NOTE | 2020-07-06 12:33 | NUR ---
CASE MANAGEMENT:REVIEW SI;BLE CELLULITIS. 97.9 76 19 144/73 96% ON RA WBC 4.3 PLT 128 BG 112 CA 8.2 IS;BACTRIM DS PO Q12 KEFLEX PO Q6 RISPERDAL PO BID PROTONIX PO QD PAXIL PO QD IVF D5W @ 60 ML/HR HEPARIN SUBQ Q12 MED SURG STATUS DCP;FROM [facility] UNABLE TO RETURN TO [facility] D/T BEHAVIORAL CONCERNS PATIENT REFERRED TO [facility] PENDING OF THIS DATE SNF HAS REQUESTED JAVID FROM [facility]
--- NOTE | 2020-07-06 12:51 | NUR ---
NURSE NOTES:WOUND ASSESSMENT PATIENT FOUND IN BATHROOM. AMBULATORY WITH OUT ASSISTANCE. APPEARS TO UNDERSTAND DIRECTIONS BUT VERBALLY RAMBLES INCOHERENTLY. RIGHT ANTERIOR LOW LEG-WOUND MEASURES 1.8X0.5X0.2CM. PINK GRANULATION TISSUE. PER-WOUND EDGES SLIGHTLY MACERATED. RECOMMEND CLEAN WITH SALINE. PAT DRY. PLACE A SMALL PIECE OF CALCIUM ALGINATE ON WOUND BED AND COVER WITH OPTIFOAM DRESSING. REPLACE DRESSING DAILY. DISCUSSED ABOVE WITH NURSE CARING FOR PATIENT.
--- NOTE | 2020-07-06 14:36 | Infectious Diseases Prog Note ---
Assessment/Plan Assessment: R>L LE cellulitis -wound cx MRSA Afebrile No leukocytosis -u/a neg COPD paranoid schizophrenia R breast CA sp mastectomy [facility] resident ([facility]) Plan: -dc Keflex #3 (abx #4) -PO Bactrim #2/7-10 -07/04 SP ANcef #1 -07/03 SP Ceftriaxone x1 -f/u cx -Monitor CBC/CMP, temperatures -wound care per hospital protocol Thank you for consulting [facility]. Will continue to follow along with you. Discussed with RN. Subjective Allergies: Coded Allergies: No Known Allergies (Unverified , 07/03/20) afebrile no leukocytosis Objective Last 24 Hour Vital Signs Date Time Temp Pulse Resp B/P (MAP) Pulse Ox O2 Delivery O2 Flow Rate FiO2 07/06/20 12:00 96.4 73 18 127/68 (87) 95 07/06/20 09:00 Room Air 07/06/20 08:34 97.5 76 18 120/67 (84) 96 07/06/20 04:05 97.8 72 19 138/74 (95) 96 07/05/20 23:40 97.9 73 19 136/73 (94) 96 07/05/20 21:00 Room Air 07/05/20 20:00 97.6 71 19 144/73 (96) 96 07/05/20 16:00 96.6 88 19 144/79 (100) 95 Height (Feet): 5 Height (Inches): 6.00 Weight (Pounds): 200 GENERAL: Confused in bed, refusing to answer questions. CARDIOVASCULAR: No murmur. LUNGS: Poor air exchange. ABDOMEN: Bowel sounds distant. EXTREMITIES: No cyanosis, clubbing, or edema. R marino w evidence of prior surgery- redneses, swelling, and warmth; L LE lesser degree of erythema or swelling NEUROLOGIC: The patient moves all extremities, slightly weak. Microbiology Date/Time Source Procedure Growth Status 07/03/20 23:10 Rectal Mucosa VRE Culture - Final NO VANCOMYCIN RESISTANT ENTEROCOCCUS ... Complete 07/03/20 23:10 Nasal Nares MRSA Culture - Final Staphylococcus Aureus - Mrsa Complete 07/03/20 22:12 Other(Specify in comment) Gram Stain - Final Complete 07/03/20 22:12 Wound Culture - Final Staphylococcus Aureus - Mrsa Complete Laboratory Tests Test 07/06/20 07:35 White Blood Count 4.3 K/UL (4.8-10.8) L Red Blood Count 4.80 M/UL (4.20-5.40) Hemoglobin 14.6 G/DL (12.0-16.0) Hematocrit 45.5 % (37.0-47.0) Mean Corpuscular Volume 95 FL (80-99) Mean Corpuscular Hemoglobin 30.4 PG (27.0-31.0) Mean Corpuscular Hemoglobin Concent 32.1 G/DL (32.0-36.0) Red Cell Distribution Width 13.6 % (11.6-14.8) Platelet Count 128 K/UL (150-450) L Mean Platelet Volume 7.7 FL (6.5-10.1) Neutrophils (%) (Auto) 54.9 % (45.0-75.0) Lymphocytes (%) (Auto) 34.7 % (20.0-45.0) Monocytes (%) (Auto) 9.5 % (1.0-10.0) Eosinophils (%) (Auto) 0.0 % (0.0-3.0) Basophils (%) (Auto) 0.9 % (0.0-2.0) Sodium Level 140 MMOL/L (136-145) Potassium Level 4.3 MMOL/L (3.5-5.1) Chloride Level 104 MMOL/L (98-107) Carbon Dioxide Level 31 MMOL/L (21-32) Anion Gap 6 mmol/L (5-15) Blood Urea Nitrogen 18 mg/dL (7-18) Creatinine 0.9 MG/DL (0.55-1.30) Estimat Glomerular Filtration Rate > 60 mL/min (>60) Glucose Level 112 MG/DL (74-106) H Calcium Level 8.2 MG/DL (8.5-10.1) L Hepatitis A IgM Antibody Pending Hepatitis B Surface Antigen Pending Hepatitis B Core IgM Antibody Pending Hepatitis C Antibody Pending HIV (1&2) Antibody Rapid Negative (NEGATIVE) Current Medications Medications (Trade) Dose Ordered Sig/Alli Route PRN Reason Start Time Stop Time Status Last Admin Dose Admin Cephalexin (Keflex) 500 mg Q6HR ORAL 07/04/20 18:00 07/11/20 17:59 07/06/20 12:19 Dextrose/Sodium Chloride 1,000 ml @ 60 mls/hr [id number] IV 07/04/20 06:30 08/03/20 06:29 07/04/20 06:29 Divalproex Sodium (Depakote) 500 mg Q12HR ORAL 07/04/20 09:00 08/03/20 08:59 07/06/20 08:40 Docusate Sodium (Colace) 100 mg DAILY ORAL 07/04/20 09:00 08/03/20 08:59 07/06/20 08:40 Ferrous Sulfate (Feosol) 325 mg DAILY ORAL 07/04/20 09:00 10/02/20 08:59 07/06/20 08:40 Heparin Sodium (Porcine) (Heparin 5000 units/ml) 5,000 units EVERY 12 HOURS SUBQ 07/04/20 09:00 08/18/20 08:59 07/04/20 20:23 Lorazepam (Ativan) 1 mg Q6H PRN ORAL For Anxiety 07/04/20 14:45 07/11/20 14:44 Morphine Sulfate (Morphine Sulfate) 2 mg Q4H PRN IVP For Pain 07/04/20 06:15 07/11/20 06:14 Olanzapine (ZyPREXA) 10 mg BID ORAL 07/04/20 09:00 08/18/20 08:59 07/06/20 08:41 Pantoprazole (Protonix) 40 mg DAILY ORAL 07/04/20 09:00 08/03/20 08:59 07/06/20 08:41 Paroxetine HCl (Paxil) 20 mg DAILY ORAL 07/04/20 09:00 08/03/20 08:59 07/06/20 08:40 Quetiapine Fumarate (SEROqueL) 200 mg DAILY ORAL 07/04/20 09:00 08/18/20 08:59 07/06/20 08:41 Risperidone (RisperDAL) 1 mg BID ORAL 07/04/20 18:00 08/18/20 17:59 07/06/20 08:41 Sennosides (Senokot) 8.6 mg DAILY ORAL 07/04/20 09:00 08/03/20 08:59 07/06/20 08:41 Trimethoprim/ Sulfamethoxazole (Bactrim-DS) 1 tab Q12HR ORAL 07/05/20 21:00 07/12/20 20:59 07/06/20 08:39 Omaira Eduardo M.D. Jul 06, 2020 14:36
--- NOTE | 2020-07-06 18:00 | NUR ---
NURSE NOTES: patient ate dinner.Colostomy bag remains intact,stoma pink.some stool noted in colostomy bag.Optiform dressingto lower left leg.Wound care Nurse saw patient today.
--- NOTE | 2020-07-06 19:40 | NUR ---
NURSE HAND-OFF: Enedelia RN Important Events on Shift:[] Patient Status: []Wound care Eval done Diet: Regular[] Pending Orders: [] Pending Results/Labs:[] Pending MD notification:[] Latest Vital Signs: Temperature 97.7 , Pulse 89 , B/P 133 /78 , Respiratory Rate 18 , O2 SAT 95 , Room Air, O2 Flow Rate . Vital Sign Comment: [] Latest Santizo Fall Score: 50 Fall Risk: High Risk Safety Measures: Call light Within Reach, Bed Alarm Zone 2, Side Rails Side Rails x2, Bed position Low and Locked. Fall Precautions: Yellow Socks y ambulate steady Patient Fall Education Report given to [].
--- NOTE | 2020-07-06 20:00 | NUR ---
NURSE NOTES: Patient received in bed, asleep, no acute distress. Will continue plan of care.
[2020-07-07 03:12] VITALS: BP 148/77
--- NOTE | 2020-07-07 06:06 | NUR ---
NURSE NOTES: Throughout the shift, patient continuously ambulates around the room back and forth to the bathroom, compulsively running the faucet and flushing the toilet without reason. Patient becomes agitated when she is redirected back to bed. Attempted other diversional activities but patient is fixated with the faucet and the toilet. Patient also removed her right leg dressing; attempted to re-dress it but patient keeps withdawing her leg from RN. Patient is not receptive to wound care education. Will re-attempt to redress wound again.
--- NOTE | 2020-07-07 07:00 | NUR ---
NURSE HAND-OFF: Important Events on Shift:[mood labile; back and forth to the bathroom obsessing over faucet and toilet flush; right leg dressing changed] Patient Status: [eating breakfast] Diet: [Regular] Pending Orders: [discharge planning snf vs psych] Pending Results/Labs:[] Pending MD notification:[] Latest Vital Signs: Temperature 96.8 , Pulse 94 , B/P 148 /77 , Respiratory Rate 18 , O2 SAT 96 , Room Air, O2 Flow Rate . Vital Sign Comment: [] Latest Santizo Fall Score: 50 Fall Risk: High Risk Safety Measures: Call light Within Reach, Bed Alarm Zone 2, Side Rails Side Rails x2, Bed position Low and Locked. Fall Precautions: Yellow Socks Patient Fall Education Report given to [Bailee Ramirez RN].
[2020-07-07 07:09] LABS: BASOPHILS % (AUTO) 0.3 % (0.0-2.0); HEMATOCRIT 46.5 % (37.0-47.0); HEMOGLOBIN 14.8 G/DL (12.0-16.0); LYMPHOCYTES % (AUTO) 49.4 % (20.0-45.0); MEAN CORPUSCULAR VOLUME 97 FL (80-99); MONOCYTES % (AUTO) 10.2 % (1.0-10.0); PLATELET COUNT 136 K/UL (150-450); RED BLOOD COUNT 4.78 M/UL (4.20-5.40); RED CELL DISTRIBUTION WIDTH 13.7 % (11.6-14.8); WHITE BLOOD COUNT 5.4 K/UL (4.8-10.8)
--- NOTE | 2020-07-07 07:10 | NUR ---
NURSE NOTES: Received patient in bed,awake, ambulatory. Not in respiratory distress. No IV. colostomy is intact. Denies pain or discomfort. Patient's speech is unclear. Will continue plan of care.
[2020-07-07 07:17] LABS: CALCIUM 8.5 MG/DL (8.5-10.1); POTASSIUM 4.4 MMOL/L (3.5-5.1)
[2020-07-07 08:00] VITALS: BP 130/65
[2020-07-07] MEDS: Heparin 5000 units/ml inj SUBQ SCH ×2 (09:00→21:00)
[2020-07-07] MEDS: PARoxetine HCL 20mg tab ORAL SCH (09:18)
[2020-07-07] MEDS: Sennosides 8.6mg tab ORAL SCH (09:18)
[2020-07-07] MEDS: QUEtiapine 200mg tab ORAL SCH (09:18)
[2020-07-07] MEDS: Docusate 100mg cap ORAL SCH (09:18)
[2020-07-07] MEDS: OLANZapine 10mg tab ORAL SCH ×2 (09:18→17:33)
[2020-07-07] MEDS: Bactrim-DS 1 tab ORAL SCH ×2 (09:18→21:00)
[2020-07-07] MEDS: Depakote 500mg tab ORAL SCH ×2 (09:18→21:00)
--- NOTE | 2020-07-07 09:18 | NUR ---
NURSE NOTES: Patient is in the room noted with mood lability and talking to herself with loud voice with unclear speech. RN approached patient in a calm manner and provide hazard free and quiet environment. Given due psych meds and hydrate the patient. Frequent visual check done. Will continue to monitor.
--- NOTE | 2020-07-07 09:53 | General Progress Note ---
Subjective Constitutional: Reports: weakness Allergies: Coded Allergies: No Known Allergies (Unverified , 07/03/20) All Systems: reviewed and negative except above Subjective calm in room Objective Last 24 Hour Vital Signs Date Time Temp Pulse Resp B/P (MAP) Pulse Ox O2 Delivery O2 Flow Rate FiO2 07/07/20 09:00 Room Air 07/07/20 08:00 98.2 71 18 130/65 (86) 97 07/07/20 03:12 96.8 94 18 148/77 (100) 96 07/06/20 23:41 97.8 82 18 129/71 (90) 95 07/06/20 21:00 Room Air 07/06/20 20:00 96.6 77 18 135/69 (91) 95 07/06/20 16:00 97.7 89 18 133/78 (96) 95 07/06/20 12:00 96.4 73 18 127/68 (87) 95 Intake and Output 07/06/20 07/07/20 19:00 07:00 Intake Total 1430 ml 600 ml Balance 1430 ml 600 ml Intake Oral 1430 ml 600 ml # Voids 6 7 # Bowel Movements 2 1 Laboratory Tests 07/07/20 05:20: White Blood Count 5.4, Red Blood Count 4.78, Hemoglobin 14.8, Hematocrit 46.5, Mean Corpuscular Volume 97, Mean Corpuscular Hemoglobin 30.9, Mean Corpuscular Hemoglobin Concent 31.8L, Red Cell Distribution Width 13.7, Platelet Count 136L, Mean Platelet Volume 8.4, Neutrophils (%) (Auto) 40.0L, Lymphocytes (%) (Auto) 49.4H, Monocytes (%) (Auto) 10.2H, Eosinophils (%) (Auto) 0.0, Basophils (%) (Auto) 0.3, Sodium Level 142, Potassium Level 4.4, Chloride Level 106, Carbon Dioxide Level 30, Anion Gap 6, Blood Urea Nitrogen 17, Creatinine 1.0, Estimat Glomerular Filtration Rate 56.2, Glucose Level 81, Calcium Level 8.5 Height (Feet): 5 Height (Inches): 6.00 Weight (Pounds): 200 General Appearance: lethargic EENT: normal ENT inspection Neck: normal alignment Cardiovascular: normal peripheral pulses, normal rate, regular rhythm Respiratory/Chest: chest wall non-tender, lungs clear, normal breath sounds Abdomen: normal bowel sounds, non tender, soft Extremities: normal inspection Edema: no edema noted Arm (L), no edema noted Arm (R), no edema noted Leg (L), no edema noted Leg (R), no edema noted Pedal (L), no edema noted Pedal (R), no edema noted Generalized Neurologic: motor weakness Skin: normal pigmentation, warm/dry Assessment/Plan Problem List: (1) Breast cancer ICD Codes: C50.919 - Malignant neoplasm of unspecified site of unspecified female breast SNOMED: 489754397 (2) COPD (chronic obstructive pulmonary disease) ICD Codes: J44.9 - Chronic obstructive pulmonary disease, unspecified SNOMED: 12467847 (3) Paranoia ICD Codes: F22 - Delusional disorders SNOMED: 617931761 (4) Bilateral lower leg cellulitis ICD Codes: L03.116 - Cellulitis of left lower limb; L03.115 - Cellulitis of right lower limb SNOMED: 943182925 Status: stable, progressing Assessment/Plan: wound care, abx psyc tx cbc bmp am psyc transfer Iam Portillo DO Jul 07, 2020 09:53
--- NOTE | 2020-07-07 10:20 | NUR ---
NURSE NOTES: Patient is calm @this time,will continue to monitor.
--- NOTE | 2020-07-07 11:01 | Psychiatry Consultation ---
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 orientation x3 speech is normal Thought process disorganized logical and judgment poor Allergies: Coded Allergies: No Known Allergies (Unverified , 07/03/20) Medication History Scheduled Cranberry Fruit Concentrate (Cranberry), 450 MG PO BID, (Reported) Divalproex Sodium* (Depakote Er*), 500 MG ORAL EVERY 12 HOURS, (Reported) Docusate Sodium* (Colace*), 100 MG ORAL DAILY, (Reported) Ferrous Sulfate* (Ferrous Sulfate*), 325 MG ORAL DAILY, (Reported) Multivitamin With Minerals (Multivitamins With Minerals*), 1 TAB ORAL DAILY, (Reported) Olanzapine* (Zyprexa*), 10 MG ORAL BID, (Reported) Paroxetine Hcl* (Paxil*), 20 MG ORAL DAILY, (Reported) Quetiapine Fumarate* (Seroquel*), 200 MG ORAL DAILY, (Reported) Rivaroxaban (Xarelto), 20 MG ORAL Evening, (Reported) Sennosides (Senna), 2 TAB PO BEDTIME, (Reported) Zinc Sulfate (Zinc Sulfate*), 220 MG ORAL DAILY, (Reported) Scheduled PRN Acetaminophen* (Acetaminophen 325MG Tablet*), 325 MG ORAL Q6H PRN for Mild Pain (Pain Scale 1-3), (Reported) Acetaminophen* (Acetaminophen Extra Strength*), 1,000 MG ORAL Q6H PRN for Moderate Pain (Pain Scale 4-6), (Reported) Ascorbate Calcium (Vitamin C), 500 MG PO DAILY PRN for supplement, (Reported) Na Phos,M-B/Na Phos,Di-Ba* (Fleet Enema*), 133 ML RECTAL DAILY PRN for Constipation, (Reported) Pantoprazole (Pantoprazole), 40 MG ORAL AC PRN for gerd, (Reported) Discontinued Medications Acetaminophen* (Tylenol*), 650 MG ORAL Q6HR PRN for MILD/TEMP, (Reported) Discontinued Reason: Prescription changed Divalproex Sodium* (Depakote*), 500 MG PO Q12HR, (Reported) Discontinued Reason: Prescription changed Magnesium Hydroxide* (Milk Of Magnesia*), 30 ML ORAL DAILY, (Reported) Discontinued Reason: MD discontinued med Rivaroxaban (Xarelto*), 20 MG ORAL DAILY, (Reported) Discontinued Reason: Prescription changed Zinc Gluconate (Zinc), 220 MG ORAL DAILY PRN for supplement, (Reported) Discontinued Reason: Prescription changed Objective Data Height (Feet): 5 Height (Inches): 6.00 Weight (Pounds): 200 Assessment/Plan Assessment/Plan: Cointinue Zyprexa 10mg PO BID and Risperdal 1mg PO BID with Seroquel 200mg PO qhs. Ativan 1mg PO q6h prn anxiety. 20minutes or Cognitive behavioral therapy provided whereas I helped the patient identify her automatic negative thoughts and helped her convert her negative thoughts to more positive thoughts. Transfer to psych at [facility] when medically cleared Diagnosis [place] I: Paranoid schizophrenia with acute exacerbation Drake Rivera MD Jul 07, 2020 11:01
[2020-07-07 12:00] VITALS: BP 138/85
--- NOTE | 2020-07-07 15:54 | Infectious Diseases Prog Note ---
Assessment/Plan Assessment: R>L LE cellulitis -wound cx MRSA Afebrile No leukocytosis -u/a neg Hep C + COPD paranoid schizophrenia R breast CA sp mastectomy [facility] resident ([facility]) Plan: -PO Bactrim #3/7-10 -07/06 Sp Keflex #3 -07/04 SP ANcef #1 -07/03 SP Ceftriaxone x1 -f/u cx -Monitor CBC/CMP, temperatures -wound care per hospital protocol Thank you for consulting [facility]. Will continue to follow along with you. Discussed with RN. Subjective Allergies: Coded Allergies: No Known Allergies (Unverified , 07/03/20) afebrile no leukocytosis Objective Last 24 Hour Vital Signs Date Time Temp Pulse Resp B/P (MAP) Pulse Ox O2 Delivery O2 Flow Rate FiO2 07/07/20 12:00 97.3 68 18 138/85 (102) 95 07/07/20 09:00 Room Air 07/07/20 08:00 98.2 71 18 130/65 (86) 97 07/07/20 03:12 96.8 94 18 148/77 (100) 96 07/06/20 23:41 97.8 82 18 129/71 (90) 95 07/06/20 21:00 Room Air 07/06/20 20:00 96.6 77 18 135/69 (91) 95 07/06/20 16:00 97.7 89 18 133/78 (96) 95 Height (Feet): 5 Height (Inches): 6.00 Weight (Pounds): 200 GENERAL: Confused in bed, refusing to answer questions. CARDIOVASCULAR: No murmur. LUNGS: Poor air exchange. ABDOMEN: Bowel sounds distant. EXTREMITIES: No cyanosis, clubbing, or edema. R marino w evidence of prior surgery- redneses, swelling, and warmth; L LE lesser degree of erythema or swe lling NEUROLOGIC: The patient moves all extremities, slightly weak. Laboratory Tests Test 07/07/20 05:20 White Blood Count 5.4 K/UL (4.8-10.8) Red Blood Count 4.78 M/UL (4.20-5.40) Hemoglobin 14.8 G/DL (12.0-16.0) Hematocrit 46.5 % (37.0-47.0) Mean Corpuscular Volume 97 FL (80-99) Mean Corpuscular Hemoglobin 30.9 PG (27.0-31.0) Mean Corpuscular Hemoglobin Concent 31.8 G/DL (32.0-36.0) L Red Cell Distribution Width 13.7 % (11.6-14.8) Platelet Count 136 K/UL (150-450) L Mean Platelet Volume 8.4 FL (6.5-10.1) Neutrophils (%) (Auto) 40.0 % (45.0-75.0) L Lymphocytes (%) (Auto) 49.4 % (20.0-45.0) H Monocytes (%) (Auto) 10.2 % (1.0-10.0) H Eosinophils (%) (Auto) 0.0 % (0.0-3.0) Basophils (%) (Auto) 0.3 % (0.0-2.0) Sodium Level 142 MMOL/L (136-145) Potassium Level 4.4 MMOL/L (3.5-5.1) Chloride Level 106 MMOL/L (98-107) Carbon Dioxide Level 30 MMOL/L (21-32) Anion Gap 6 mmol/L (5-15) Blood Urea Nitrogen 17 mg/dL (7-18) Creatinine 1.0 MG/DL (0.55-1.30) Estimat Glomerular Filtration Rate 56.2 mL/min (>60) Glucose Level 81 MG/DL (74-106) Calcium Level 8.5 MG/DL (8.5-10.1) Current Medications Medications (Trade) Dose Ordered Sig/Alli Route PRN Reason Start Time Stop Time Status Last Admin Dose Admin Dextrose/Sodium Chloride 1,000 ml @ 60 mls/hr [id number] IV 07/04/20 06:30 08/03/20 06:29 07/04/20 06:29 Divalproex Sodium (Depakote) 500 mg Q12HR ORAL 07/04/20 09:00 08/03/20 08:59 07/07/20 09:18 Docusate Sodium (Colace) 100 mg DAILY ORAL 07/04/20 09:00 08/03/20 08:59 07/07/20 09:18 Ferrous Sulfate (Feosol) 325 mg DAILY ORAL 07/04/20 09:00 10/02/20 08:59 07/07/20 09:18 Heparin Sodium (Porcine) (Heparin 5000 units/ml) 5,000 units EVERY 12 HOURS SUBQ 07/04/20 09:00 08/18/20 08:59 07/04/20 20:23 Lorazepam (Ativan) 1 mg Q6H PRN ORAL For Anxiety 07/04/20 14:45 07/11/20 14:44 Morphine Sulfate (Morphine Sulfate) 2 mg Q4H PRN IVP For Pain 07/04/20 06:15 07/11/20 06:14 Olanzapine (ZyPREXA) 10 mg BID ORAL 07/04/20 09:00 08/18/20 08:59 07/07/20 09:18 Pantoprazole (Protonix) 40 mg DAILY ORAL 07/04/20 09:00 08/03/20 08:59 07/07/20 09:18 Paroxetine HCl (Paxil) 20 mg DAILY ORAL 07/04/20 09:00 08/03/20 08:59 07/07/20 09:18 Quetiapine Fumarate (SEROqueL) 200 mg DAILY ORAL 07/04/20 09:00 08/18/20 08:59 07/07/20 09:18 Risperidone (RisperDAL) 1 mg BID ORAL 07/04/20 18:00 08/18/20 17:59 07/07/20 09:18 Sennosides (Senokot) 8.6 mg DAILY ORAL 07/04/20 09:00 08/03/20 08:59 07/07/20 09:18 Trimethoprim/ Sulfamethoxazole (Bactrim-DS) 1 tab Q12HR ORAL 07/05/20 21:00 07/12/20 20:59 07/07/20 09:18 Omaira Eduardo M.D. Jul 07, 2020 15:54
[2020-07-07 16:00] VITALS: BP 129/73
--- NOTE | 2020-07-07 16:30 | NUR ---
NURSE NOTES: Patient is calm and quiet without any issues.
[2020-07-07] MEDS: D5 1/2NS 1,000 ML IV SCH (17:10)
--- NOTE | 2020-07-07 17:30 | NUR ---
NURSE NOTES: Colostomy on left abdomen noted with brownish bowel movement. RN asked if patient wants RN to drain, patient waived her hand. colostomy is intact.
--- NOTE | 2020-07-07 18:30 | NUR ---
NURSE NOTES: Patient is asleep @ this time. Breathing is even and unlabored.
--- NOTE | 2020-07-07 19:23 | NUR ---
NURSE HAND-OFF: Important Events on Shift: n/a Patient Status: stable Diet: regular Pending Orders: Pending Results/Labs: Pending MD notification: Latest Vital Signs: Temperature 98.0 , Pulse 70 , B/P 129 /73 , Respiratory Rate 21 , O2 SAT 97 , Room Air, O2 Flow Rate . Vital Sign Comment: Latest Santizo Fall Score: 50 Fall Risk: High Risk Safety Measures: Call light Within Reach, Bed Alarm Zone 2, Side Rails Side Rails x2, Bed position Low and Locked. Fall Precautions: Yellow Socks Patient Fall Education Report given to Javon and endorsed plan of care.
[2020-07-07 20:00] VITALS: BP 135/75
--- NOTE | 2020-07-07 20:03 | NUR ---
NURSE NOTES: Patient in bed, asleep, arousable to name and touch, Alert x [address] Periods of confusion. Kept clean and comfortable. Bed in low and locked position. provided safe environment. Skin is warm and dry to touch. Noted with lower quadrant colostomy. Ambulatory. Respiration is even and unlabored. No complaint of pain or discomfort noted. Abdomen is soft and non distended. call light is at bedside. No iv site, refused to have iv insertion. Will continue plan of care.
--- NOTE | 2020-07-07 22:30 | NUR ---
NURSE NOTES: Patient refused to have PO medication, will reassess. Call light is at bedside.
[2020-07-08 04:00] VITALS: BP 139/73
--- NOTE | 2020-07-08 07:07 | Hematology/Onc Progress Note ---
Assessment/Plan Assessment/Plan Assesment and Recs # Leukopenia with Monocytosis due to hepatitis C++ --> likely due to reactive process --> wbc remains 6-->4 --> hep and hiv ordered==> HEP C++ # Thrombocytopenia is likely hep c related --> us abd has been ordered --> HEP C+++ # Breast cancer on the right side s/p mastectomy, is not on hormonal therapy --> obtain outside records, order placed --> hold off hormonal medications, surgery may be years ago --> eval for recurrence as needed --> 06/04 unable to obtain records per snf now # Erythrocytosis likely is due to dehydration --> trend hgb as needed --> hgb 16.5-->14.6-->14 --> no hemolysis noted # Bilateral lower leg cellulitis --> as per id on abx, right leg with gauze over it --> wound care --> eval as needed surg # Dvt ppx lovenox sq Appreciate consultation and brian RN Subjective Constitutional: Denies: no symptoms, chills, fever, malaise, weakness, other HEENT: Denies: no symptoms, eye pain, blurred vision, tearing, double vision, ear pain, ear discharge, nose pain, nose congestion, throat pain, throat swelling, mouth pain, mouth swelling, other Cardiovascular: Denies: no symptoms, chest pain, edema, irregular heart rate, lightheadedness, palpitations, syncope, other Respiratory: Denies: no symptoms, cough, shortness of breath, SOB with excertion, SOB at rest, sputum, wheezing, other Gastrointestinal/Abdominal: Denies: no symptoms, abdomen distended, abdominal pain, black stools, tarry stools, blood in stool, constipated, diarrhea, difficulty swallowing, nausea, poor appetite, poor fluid intake, rectal bleeding, vomiting, other Genitourinary: Denies: no symptoms, burning, discharge, frequency, flank pain, hematuria, incontinence, pain, urgency, other Neurologic/Psychiatric: Denies: no symptoms, anxiety, depressed, emotional problems, headache, numbness, paresthesia, pre-existing deficit, seizure, tingling, tremors, weakness, other Endocrine: Denies: no symptoms, excessive sweating, flushing, intolerance to cold, intolerance to heat, increased hunger, increased thirst, increased urine, unexplained weight gain, unexplained weight loss, other Allergies: Coded Allergies: No Known Allergies (Unverified , 07/03/20) Subjective 07/05 llq colostomy bag, a+ox1 no bleeding, labs reviewed, brian rn, hgb 16 07/06 wbc is lower, no bleeding, otherwise no f/c, no night sweats 07/08 refusing po meds, a+o x2, no bleeding, labs reviewed, meds noted Objective Objective Current Medications Medications (Trade) Dose Ordered Sig/Alli Route PRN Reason Start Time Stop Time Status Last Admin Dose Admin Dextrose/Sodium Chloride 1,000 ml @ 60 mls/hr [id number] IV 07/04/20 06:30 08/03/20 06:29 07/04/20 06:29 Divalproex Sodium (Depakote) 500 mg Q12HR ORAL 07/04/20 09:00 08/03/20 08:59 07/07/20 09:18 Docusate Sodium (Colace) 100 mg DAILY ORAL 07/04/20 09:00 08/03/20 08:59 07/07/20 09:18 Ferrous Sulfate (Feosol) 325 mg DAILY ORAL 07/04/20 09:00 10/02/20 08:59 07/07/20 09:18 Heparin Sodium (Porcine) (Heparin 5000 units/ml) 5,000 units EVERY 12 HOURS SUBQ 07/04/20 09:00 08/18/20 08:59 07/04/20 20:23 Lorazepam (Ativan) 1 mg Q6H PRN ORAL For Anxiety 07/04/20 14:45 07/11/20 14:44 07/08/20 00:46 Morphine Sulfate (Morphine Sulfate) 2 mg Q4H PRN IVP For Pain 07/04/20 06:15 07/11/20 06:14 Olanzapine (ZyPREXA) 10 mg BID ORAL 07/04/20 09:00 08/18/20 08:59 07/07/20 17:33 Pantoprazole (Protonix) 40 mg DAILY ORAL 07/04/20 09:00 08/03/20 08:59 07/07/20 09:18 Paroxetine HCl (Paxil) 20 mg DAILY ORAL 07/04/20 09:00 08/03/20 08:59 07/07/20 09:18 Quetiapine Fumarate (SEROqueL) 200 mg DAILY ORAL 07/04/20 09:00 08/18/20 08:59 07/07/20 09:18 Risperidone (RisperDAL) 1 mg BID ORAL 07/04/20 18:00 08/18/20 17:59 07/07/20 17:33 Sennosides (Senokot) 8.6 mg DAILY ORAL 07/04/20 09:00 08/03/20 08:59 07/07/20 09:18 Trimethoprim/ Sulfamethoxazole (Bactrim-DS) 1 tab Q12HR ORAL 07/05/20 21:00 07/12/20 20:59 07/07/20 09:18 Last 24 Hour Vital Signs Date Time Temp Pulse Resp B/P (MAP) Pulse Ox O2 Delivery O2 Flow Rate FiO2 07/08/20 04:00 97.9 86 16 139/73 (95) 95 07/08/20 00:46 83 16 135/75 96 07/07/20 21:00 Room Air 07/07/20 20:00 98.1 83 16 135/75 (95) 96 07/07/20 16:00 98.0 70 21 129/73 (91) 97 07/07/20 12:00 97.3 68 18 138/85 (102) 95 07/07/20 09:00 Room Air 07/07/20 08:00 98.2 71 18 130/65 (86) 97 07/07/20 03:12 96.8 94 18 148/77 (100) 96 07/06/20 23:41 97.8 82 18 129/71 (90) 95 07/06/20 21:00 Room Air 07/06/20 20:00 96.6 77 18 135/69 (91) 95 07/06/20 16:00 97.7 89 18 133/78 (96) 95 07/06/20 12:00 96.4 73 18 127/68 (87) 95 07/06/20 09:00 Room Air 07/06/20 08:34 97.5 76 18 120/67 (84) 96 Intake and Output 07/07/20 07/08/20 19:00 07:00 Intake Total 960 ml Balance 960 ml Intake Oral 960 ml # Voids 2 4 # Bowel Movements 1 Labs Test 07/06/20 07:35 07/07/20 05:20 White Blood Count 4.3 K/UL (4.8-10.8) 5.4 K/UL (4.8-10.8) Red Blood Count 4.80 M/UL (4.20-5.40) 4.78 M/UL (4.20-5.40) Hemoglobin 14.6 G/DL (12.0-16.0) 14.8 G/DL (12.0-16.0) Hematocrit 45.5 % (37.0-47.0) 46.5 % (37.0-47.0) Mean Corpuscular Volume 95 FL (80-99) 97 FL (80-99) Mean Corpuscular Hemoglobin 30.4 PG (27.0-31.0) 30.9 PG (27.0-31.0) Mean Corpuscular Hemoglobin Concent 32.1 G/DL (32.0-36.0) 31.8 G/DL (32.0-36.0) Red Cell Distribution Width 13.6 % (11.6-14.8) 13.7 % (11.6-14.8) Platelet Count 128 K/UL (150-450) 136 K/UL (150-450) Mean Platelet Volume 7.7 FL (6.5-10.1) 8.4 FL (6.5-10.1) Neutrophils (%) (Auto) 54.9 % (45.0-75.0) 40.0 % (45.0-75.0) Lymphocytes (%) (Auto) 34.7 % (20.0-45.0) 49.4 % (20.0-45.0) Monocytes (%) (Auto) 9.5 % (1.0-10.0) 10.2 % (1.0-10.0) Eosinophils (%) (Auto) 0.0 % (0.0-3.0) 0.0 % (0.0-3.0) Basophils (%) (Auto) 0.9 % (0.0-2.0) 0.3 % (0.0-2.0) Sodium Level 140 MMOL/L (136-145) 142 MMOL/L (136-145) Potassium Level 4.3 MMOL/L (3.5-5.1) 4.4 MMOL/L (3.5-5.1) Chloride Level 104 MMOL/L (98-107) 106 MMOL/L (98-107) Carbon Dioxide Level 31 MMOL/L (21-32) 30 MMOL/L (21-32) Anion Gap 6 mmol/L (5-15) 6 mmol/L (5-15) Blood Urea Nitrogen 18 mg/dL (7-18) 17 mg/dL (7-18) Creatinine 0.9 MG/DL (0.55-1.30) 1.0 MG/DL (0.55-1.30) Estimat Glomerular Filtration Rate > 60 mL/min (>60) 56.2 mL/min (>60) Glucose Level 112 MG/DL (74-106) 81 MG/DL (74-106) Calcium Level 8.2 MG/DL (8.5-10.1) 8.5 MG/DL (8.5-10.1) Hepatitis A IgM Antibody Negative (Negative) Hepatitis B Surface Antigen Negative (Negative) Hepatitis B Core IgM Antibody Negative (Negative) Hepatitis C Antibody >11.0 s/co ratio HIV (1&2) Antibody Rapid Negative (NEGATIVE) Height (Feet): 5 Height (Inches): 6.00 Weight (Pounds): 200 Objective Physical Exam Vitals: unremarkable Sp02 EP Interpretation: reviewed, normal General Appearance: well appearing Heent: normocephalic, atraumatic, hearing grossly normal, normal pharynx Neck: full range of motion, supple, no meningismus Respiratory: chest non-tender, lungs clear, normal breath sounds Cardiovascular: regular rate, rhythm, no murmur +++scar right breast Gastrointestinal: normal bowel sounds, non tender, no mass, no organomegaly, no bruit, non-distended Musculoskeletal: back normal, normal range of motion, gait/station normal, other - Lower extremities show some minimal erythema. Right tib-fib has previous scarring and there is 1 area of about 2 cm with scab/eschar with serous drainage. Psychiatric: mood/affect normal José Luis Collins MD Jul 08, 2020 07:07
--- NOTE | 2020-07-08 07:22 | NUR ---
NURSE HAND-OFF: Important Events on Shift:WNl Patient Status: WNL Diet: REG Pending Orders: Pending Results/Labs: Pending MD notification: Latest Vital Signs: Temperature 97.9 , Pulse 86 , B/P 139 /73 , Respiratory Rate 16 , O2 SAT 95 , Room Air, O2 Flow Rate . Vital Sign Comment: WNL Latest Santizo Fall Score: 50 Fall Risk: High Risk Safety Measures: Call light Within Reach, Bed Alarm Zone 2, Side Rails Side Rails x2, Bed position Low and Locked. Fall Precautions: Yellow Socks Patient Fall Education Report given to CHARITO Aguilar.
--- NOTE | 2020-07-08 07:42 | NUR ---
NURSE NOTES: Received patient in bed,awake, ambulatory. Not in respiratory distress. No IV. colostomy is intact. Denies pain or discomfort. Patient's speech is unclear. Patient is calm @ this time.Will continue plan of care.
[2020-07-08 08:00] VITALS: BP 148/84
[2020-07-08] MEDS: Sennosides 8.6mg tab ORAL SCH (08:07)
[2020-07-08] MEDS: Docusate 100mg cap ORAL SCH (08:07)
[2020-07-08] MEDS: Depakote 500mg tab ORAL SCH ×2 (08:07→21:00)
[2020-07-08] MEDS: Bactrim-DS 1 tab ORAL SCH ×2 (08:08→21:01)
[2020-07-08] MEDS: PARoxetine HCL 20mg tab ORAL SCH (08:08)
[2020-07-08] MEDS: OLANZapine 10mg tab ORAL SCH ×2 (08:08→17:35)
[2020-07-08] MEDS: QUEtiapine 200mg tab ORAL SCH (08:08)
[2020-07-08] MEDS: Heparin 5000 units/ml inj SUBQ SCH ×2 (08:08→21:00)
--- NOTE | 2020-07-08 08:30 | NUR ---
NURSE NOTES: Patient used the restroom and noted without colostomy bag. RN applied the new colostomy, no s/s of irritation on colostomy stoma.
--- NOTE | 2020-07-08 08:34 | General Progress Note ---
Subjective Constitutional: Reports: weakness Allergies: Coded Allergies: No Known Allergies (Unverified , 07/03/20) All Systems: reviewed and negative except above Subjective calm in room Objective Last 24 Hour Vital Signs Date Time Temp Pulse Resp B/P (MAP) Pulse Ox O2 Delivery O2 Flow Rate FiO2 07/08/20 04:00 97.9 86 16 139/73 (95) 95 07/08/20 00:46 83 16 135/75 96 07/07/20 21:00 Room Air 07/07/20 20:00 98.1 83 16 135/75 (95) 96 07/07/20 16:00 98.0 70 21 129/73 (91) 97 07/07/20 12:00 97.3 68 18 138/85 (102) 95 07/07/20 09:00 Room Air Intake and Output 07/07/20 07/08/20 19:00 07:00 Intake Total 960 ml Balance 960 ml Intake Oral 960 ml # Voids 2 4 # Bowel Movements 1 Height (Feet): 5 Height (Inches): 6.00 Weight (Pounds): 200 General Appearance: lethargic EENT: normal ENT inspection Neck: normal alignment Cardiovascular: normal peripheral pulses, normal rate, regular rhythm Respiratory/Chest: chest wall non-tender, lungs clear, normal breath sounds Abdomen: normal bowel sounds, non tender, soft Extremities: normal inspection Edema: no edema noted Arm (L), no edema noted Arm (R), no edema noted Leg (L), no edema noted Leg (R), no edema noted Pedal (L), no edema noted Pedal (R), no edema noted Generalized Neurologic: motor weakness Skin: normal pigmentation, warm/dry Assessment/Plan Problem List: (1) Breast cancer ICD Codes: C50.919 - Malignant neoplasm of unspecified site of unspecified female breast SNOMED: 010024538 (2) COPD (chronic obstructive pulmonary disease) ICD Codes: J44.9 - Chronic obstructive pulmonary disease, unspecified SNOMED: 11841843 (3) Paranoia ICD Codes: F22 - Delusional disorders SNOMED: 325446144 (4) Bilateral lower leg cellulitis ICD Codes: L03.116 - Cellulitis of left lower limb; L03.115 - Cellulitis of right lower limb SNOMED: 886469400 Status: stable, progressing Assessment/Plan: wound care, abx psyc tx cbc bmp am psyc transfer Iam Portillo DO Jul 08, 2020 08:34
[2020-07-08 10:00] LABS: BASOPHILS % (AUTO) 0.5 % (0.0-2.0); HEMATOCRIT 50.4 % (37.0-47.0); HEMOGLOBIN 15.9 G/DL (12.0-16.0); LYMPHOCYTES % (AUTO) 46.1 % (20.0-45.0); MEAN CORPUSCULAR VOLUME 98 FL (80-99); MONOCYTES % (AUTO) 11.3 % (1.0-10.0); NEUTROPHILS % (AUTO) 42.1 % (45.0-75.0); PLATELET COUNT 147 K/UL (150-450); RED BLOOD COUNT 5.12 M/UL (4.20-5.40); RED CELL DISTRIBUTION WIDTH 13.9 % (11.6-14.8); WHITE BLOOD COUNT 5.5 K/UL (4.8-10.8)
[2020-07-08 10:11] LABS: CALCIUM 8.6 MG/DL (8.5-10.1); CREATININE 1.1 MG/DL (0.55-1.30)
--- NOTE | 2020-07-08 10:25 | Psychiatry Consultation ---
Psychiatry Consultation Psychiatry Consultation Chief Complaint: Skin Rash/Abscess History of Present Illness: 64yo female who continues to be confused and disorganized and has no logical pl an for self care. Patient contiues to have confusion and disorganized thought process. Decline in cognition below baseline. Allergies: Coded Allergies: No Known Allergies (Unverified , 07/03/20) Medication History Scheduled Cranberry Fruit Concentrate (Cranberry), 450 MG PO BID, (Reported) Divalproex Sodium* (Depakote Er*), 500 MG ORAL EVERY 12 HOURS, (Reported) Docusate Sodium* (Colace*), 100 MG ORAL DAILY, (Reported) Ferrous Sulfate* (Ferrous Sulfate*), 325 MG ORAL DAILY, (Reported) Multivitamin With Minerals (Multivitamins With Minerals*), 1 TAB ORAL DAILY, (Reported) Olanzapine* (Zyprexa*), 10 MG ORAL BID, (Reported) Paroxetine Hcl* (Paxil*), 20 MG ORAL DAILY, (Reported) Quetiapine Fumarate* (Seroquel*), 200 MG ORAL DAILY, (Reported) Rivaroxaban (Xarelto), 20 MG ORAL Evening, (Reported) Sennosides (Senna), 2 TAB PO BEDTIME, (Reported) Zinc Sulfate (Zinc Sulfate*), 220 MG ORAL DAILY, (Reported) Scheduled PRN Acetaminophen* (Acetaminophen 325MG Tablet*), 325 MG ORAL Q6H PRN for Mild Pain (Pain Scale 1-3), (Reported) Acetaminophen* (Acetaminophen Extra Strength*), 1,000 MG ORAL Q6H PRN for Moderate Pain (Pain Scale 4-6), (Reported) Ascorbate Calcium (Vitamin C), 500 MG PO DAILY PRN for supplement, (Reported) Na Phos,M-B/Na Phos,Di-Ba* (Fleet Enema*), 133 ML RECTAL DAILY PRN for Constipation, (Reported) Pantoprazole (Pantoprazole), 40 MG ORAL AC PRN for gerd, (Reported) Discontinued Medications Acetaminophen* (Tylenol*), 650 MG ORAL Q6HR PRN for MILD/TEMP, (Reported) Discontinued Reason: Prescription changed Divalproex Sodium* (Depakote*), 500 MG PO Q12HR, (Reported) Discontinued Reason: Prescription changed Magnesium Hydroxide* (Milk Of Magnesia*), 30 ML ORAL DAILY, (Reported) Discontinued Reason: MD discontinued med Rivaroxaban (Xarelto*), 20 MG ORAL DAILY, (Reported) Discontinued Reason: Prescription changed Zinc Gluconate (Zinc), 220 MG ORAL DAILY PRN for supplement, (Reported) Discontinued Reason: Prescription changed Objective Data Height (Feet): 5 Height (Inches): 6.00 Weight (Pounds): 200 Appearance: disheveled Behavior Mannerisms: poor eye contact Affect: constricted Mood: depressed Speech: slurred Thought Process: disorganized Thought Content: delusions of grandiosity Perceptual Disturbances: auditory Suicidal Ideation: no plan Assessment/Plan Assessment/Plan: Cointinue Zyprexa 10mg PO BID and Risperdal 1mg PO BID with Seroquel 200mg PO qhs. Ativan 1mg PO q6h prn anxiety. 20minutes or Cognitive behavioral therapy provided whereas I helped the patient identify her automatic negative thoughts and helped her convert her negative thoughts to more positive thoughts. Transfer to psych at [facility] when medically cleared Diagnosis [place] I: Paranoid Schizophrenia Drake Rivera MD Jul 08, 2020 10:25
[2020-07-08 12:00] VITALS: BP 141/72
--- NOTE | 2020-07-08 12:30 | NUR ---
NURSE NOTES: Patient removed colostomy bag, RN educated patient on colostomy and reminded patient not to remove the bag but call the nurse. RN applied another one.
--- NOTE | 2020-07-08 13:30 | NUR ---
NURSE NOTES: Abd US is done.
[2020-07-08 16:00] VITALS: BP 108/82
--- NOTE | 2020-07-08 16:34 | Diagnostic Imaging Report ---
EXAM: US Abdomen Complete CLINICAL HISTORY: ABD PAIN TECHNIQUE: Real-time ultrasound of the abdomen with image documentation. COMPARISON: No previous study. FINDINGS: Limitations: Limited evaluation of the patient was unable to cooperate with breathing instructions. Limited evaluation due to body habitus. Liver: The liver measures 20.41 cm and is enlarged Fatty infiltration of liver. No intrahepatic bile duct dilation. Gallbladder: The gallbladder is not visualized. Is there a history of cholecystectomy? Alternatively, gallbladder could be an contracted state. Common bile duct: Common bile duct measures 1 cm and is dilated. No stones. Pancreas: Pancreas is limited evaluation but grossly unremarkable. Kidneys: Right kidney measures 11.9 cm in length. Left kidney measures 12 cm in length. No hydronephrosis. No stones. Spleen: Spleen measures 11.2 cm. Aorta: See below. Inferior vena cava: The inferior vena cava and the abdominal aorta are grossly unremarkable but limited evaluation. Free fluid: No free fluid. IMPRESSION: 1. Negative limited evaluation. 2. Hepatomegaly and fatty infiltration of the liver. 3. Nonvisualization of the gallbladder. 4. Common bile duct measures approximate 1 cm and is dilated. 5. It is unclear whether the common bile duct is dilated as a result of previous cholecystectomy or whether the common bile duct is dilated due to etiology such as choledocholithiasis. 6. Clinical correlation and correlation with laboratory values are advised to 7. MRCP study will provide additional information, as deemed necessary.
--- NOTE | 2020-07-08 18:18 | NUR ---
NURSE NOTES: colostomy is in place, dressing on right leg is intact.
--- NOTE | 2020-07-08 19:11 | NUR ---
NURSE HAND-OFF: Important Events on Shift: changed colostomy twice Patient Status: stable Diet: regular Pending Orders: Pending Results/Labs: Pending MD notification: Latest Vital Signs: Temperature 98.1 , Pulse 72 , B/P 108 /82 , Respiratory Rate 18 , O2 SAT 97 , Room Air, O2 Flow Rate . Vital Sign Comment: Latest Santizo Fall Score: 50 Fall Risk: High Risk Safety Measures: Call light Within Reach, Bed Alarm Zone 2, Side Rails Side Rails x2, Bed position Low and Locked. Fall Precautions: Yellow Socks Patient Fall Education Report given to Trudy and endorsed plan of care.
[2020-07-08 20:00] VITALS: BP 142/83
--- NOTE | 2020-07-08 20:17 | NUR ---
NURSE NOTES: RECEIVED PATIENT FROM CHARITO BA. PATIENT IS AWAKE, CALM, RESTING IN BED, AAOX2, ON ROOM AIM, NO ACUTE DISTRESS NOTED. NO IV ACCESS, MD AWARE. PATIENT REFUSED NEW IV INSERTION. COLOSTOMY BAG IN PLACE, CLEAN AND DRY. BILATERAL EXTREMITY DRY, OPEN TO AIR. BED IS LOCKED AND LOW, BED ALARMS ACTIVE, SIDE RAILS UPX2 AND CALL LIGHT IS WITHIN REACH. WILL CONTINUE TO MONITOR.
[2020-07-09 04:00] VITALS: BP 143/88
[2020-07-09 06:29] LABS: BASOPHILS % (AUTO) 0.7 % (0.0-2.0); EOSINOPHILS % (AUTO) 0.1 % (0.0-3.0); HEMATOCRIT 48.7 % (37.0-47.0); HEMOGLOBIN 15.4 G/DL (12.0-16.0); LYMPHOCYTES % (AUTO) 35.7 % (20.0-45.0); MEAN CORPUSCULAR VOLUME 97 FL (80-99); MONOCYTES % (AUTO) 13.2 % (1.0-10.0); NEUTROPHILS % (AUTO) 50.3 % (45.0-75.0); PLATELET COUNT 146 K/UL (150-450); RED BLOOD COUNT 5.04 M/UL (4.20-5.40); RED CELL DISTRIBUTION WIDTH 13.2 % (11.6-14.8); WHITE BLOOD COUNT 4.5 K/UL (4.8-10.8)
--- NOTE | 2020-07-09 06:35 | NUR ---
NURSE HAND-OFF: Important Events on Shift: NO ACUTE EVENTS Patient Status: STABLE Diet: REGULAR Pending Orders: DISCHARGE PLANNING Pending Results/Labs: N/A Pending MD notification: N/A Latest Vital Signs: Temperature 96.8 , Pulse 66 , B/P 143 /88 , Respiratory Rate 17 , O2 SAT 95 , Room Air, O2 Flow Rate . Vital Sign Comment: STABLE Latest Santizo Fall Score: 50 Fall Risk: High Risk Safety Measures: Call light Within Reach, Bed Alarm Zone 2, Side Rails Side Rails x2, Bed position Low and Locked. Fall Precautions: Yellow Socks Patient Fall Education
[2020-07-09 06:50] LABS: CALCIUM 8.6 MG/DL (8.5-10.1); POTASSIUM 4.6 MMOL/L (3.5-5.1)
--- NOTE | 2020-07-09 07:02 | Hematology/Onc Progress Note ---
Assessment/Plan Assessment/Plan Assesment and Recs # Leukopenia with Monocytosis due to hepatitis C++ --> likely due to reactive process --> wbc remains 6-->4-->4.5 --> hep and hiv ordered==> HEP C++ # Thrombocytopenia is likely hep c related --> us abd has been ordered --> HEP C+++ # Breast cancer on the right side s/p mastectomy, is not on hormonal therapy --> obtain outside records, order placed --> hold off hormonal medications, surgery may be years ago --> eval for recurrence as needed --> 06/04 unable to obtain records per snf now # Erythrocytosis likely is due to dehydration --> trend hgb as needed --> hgb 16.5-->14.6-->14 --> no hemolysis noted # Bilateral lower leg cellulitis --> as per id on abx, right leg with gauze over it --> wound care --> eval as needed surg # Dvt ppx lovenox sq Appreciate consultation and brian RN Subjective HEENT: Denies: no symptoms, eye pain, blurred vision, tearing, double vision, ear pain, ear discharge, nose pain, nose congestion, throat pain, throat swelling, mouth pain, mouth swelling, other Cardiovascular: Denies: no symptoms, chest pain, edema, irregular heart rate, lightheadedness, palpitations, syncope, other Respiratory: Denies: no symptoms, cough, shortness of breath, SOB with excertion, SOB at rest, sputum, wheezing, other Gastrointestinal/Abdominal: Denies: no symptoms, abdomen distended, abdominal pain, black stools, tarry stools, blood in stool, constipated, diarrhea, difficulty swallowing, nausea, poor appetite, poor fluid intake, rectal bleeding, vomiting, other Genitourinary: Denies: no symptoms, burning, discharge, frequency, flank pain, hematuria, incontinence, pain, urgency, other Neurologic/Psychiatric: Denies: no symptoms, anxiety, depressed, emotional prob lems, headache, numbness, paresthesia, pre-existing deficit, seizure, tingling, tremors, weakness, other Endocrine: Denies: no symptoms, excessive sweating, flushing, intolerance to cold, intolerance to heat, increased hunger, increased thirst, increased urine, unexplained weight gain, unexplained weight loss, other Hematologic/Lymphatic: Denies: no symptoms, anemia, easy bleeding, easy bruising, adenopathy, other Allergies: Coded Allergies: No Known Allergies (Unverified , 07/03/20) Subjective 07/05 llq colostomy bag, a+ox1 no bleeding, labs reviewed, brian rn, hgb 16 07/06 wbc is lower, no bleeding, otherwise no f/c, no night sweats 07/08 refusing po meds, a+o x2, no bleeding, labs reviewed, meds noted 07/09 meds reviewed, labs noted, no night sweats, wbc 4.5 Objective Objective Current Medications Medications (Trade) Dose Ordered Sig/Alli Route PRN Reason Start Time Stop Time Status Last Admin Dose Admin Divalproex Sodium (Depakote) 500 mg Q12HR ORAL 07/04/20 09:00 08/03/20 08:59 07/08/20 21:00 Docusate Sodium (Colace) 100 mg DAILY ORAL 07/04/20 09:00 08/03/20 08:59 07/08/20 08:07 Ferrous Sulfate (Feosol) 325 mg DAILY ORAL 07/04/20 09:00 10/02/20 08:59 07/08/20 08:07 Heparin Sodium (Porcine) (Heparin 5000 units/ml) 5,000 units EVERY 12 HOURS SUBQ 07/04/20 09:00 08/18/20 08:59 07/04/20 20:23 Lorazepam (Ativan) 1 mg Q6H PRN ORAL For Anxiety 07/04/20 14:45 07/11/20 14:44 07/08/20 00:46 Morphine Sulfate (Morphine Sulfate) 2 mg Q4H PRN IVP For Pain 07/04/20 06:15 07/11/20 06:14 Olanzapine (ZyPREXA) 10 mg BID ORAL 07/04/20 09:00 08/18/20 08:59 07/08/20 17:35 Pantoprazole (Protonix) 40 mg DAILY ORAL 07/04/20 09:00 08/03/20 08:59 07/08/20 08:08 Paroxetine HCl (Paxil) 20 mg DAILY ORAL 07/04/20 09:00 08/03/20 08:59 07/08/20 08:08 Quetiapine Fumarate (SEROqueL) 200 mg DAILY ORAL 07/04/20 09:00 08/18/20 08:59 07/08/20 08:08 Risperidone (RisperDAL) 1 mg BID ORAL 07/04/20 18:00 08/18/20 17:59 07/08/20 17:35 Sennosides (Senokot) 8.6 mg DAILY ORAL 07/04/20 09:00 08/03/20 08:59 07/08/20 08:07 Trimethoprim/ Sulfamethoxazole (Bactrim-DS) 1 tab Q12HR ORAL 07/05/20 21:00 07/12/20 20:59 07/08/20 21:01 Last 24 Hour Vital Signs Date Time Temp Pulse Resp B/P (MAP) Pulse Ox O2 Delivery O2 Flow Rate FiO2 07/09/20 04:00 96.8 66 17 143/88 (106) 95 07/08/20 21:00 Room Air 07/08/20 20:00 97.3 63 17 142/83 (102) 95 07/08/20 16:00 98.1 72 18 108/82 (91) 97 07/08/20 12:00 98.6 69 19 141/72 (95) 97 07/08/20 09:00 Room Air 07/08/20 08:00 97.7 75 19 148/84 (105) 97 07/08/20 04:00 97.9 86 16 139/73 (95) 95 07/08/20 00:46 83 16 135/75 96 07/07/20 21:00 Room Air 07/07/20 20:00 98.1 83 16 135/75 (95) 96 07/07/20 16:00 98.0 70 21 129/73 (91) 97 07/07/20 12:00 97.3 68 18 138/85 (102) 95 07/07/20 09:00 Room Air 07/07/20 08:00 98.2 71 18 130/65 (86) 97 Intake and Output 07/08/20 07/09/20 19:00 07:00 Intake Total 980 ml Balance 980 ml Intake Oral 980 ml # Voids 3 3 Labs Test 07/06/20 07:35 07/07/20 05:20 07/08/20 09:25 07/09/20 05:20 White Blood Count 4.3 K/UL (4.8-10.8) 5.4 K/UL (4.8-10.8) 5.5 K/UL (4.8-10.8) 4.5 K/UL (4.8-10.8) Red Blood Count 4.80 M/UL (4.20-5.40) 4.78 M/UL (4.20-5.40) 5.12 M/UL (4.20-5.40) 5.04 M/UL (4.20-5.40) Hemoglobin 14.6 G/DL (12.0-16.0) 14.8 G/DL (12.0-16.0) 15.9 G/DL (12.0-16.0) 15.4 G/DL (12.0-16.0) Hematocrit 45.5 % (37.0-47.0) 46.5 % (37.0-47.0) 50.4 % (37.0-47.0) 48.7 % (37.0-47.0) Mean Corpuscular Volume 95 FL (80-99) 97 FL (80-99) 98 FL (80-99) 97 FL (80- 99) Mean Corpuscular Hemoglobin 30.4 PG (27.0-31.0) 30.9 PG (27.0-31.0) 31.0 PG (27.0-31.0) 30.6 PG (27.0-31.0) Mean Corpuscular Hemoglobin Concent 32.1 G/DL (32.0-36.0) 31.8 G/DL (32.0-36.0) 31.6 G/DL (32.0-36.0) 31.7 G/DL (32.0-36.0) Red Cell Distribution Width 13.6 % (11.6-14.8) 13.7 % (11.6-14.8) 13.9 % (11.6-14.8) 13.2 % (11.6-14.8) Platelet Count 128 K/UL (150-450) 136 K/UL (150-450) 147 K/UL (150-450) 146 K/UL (150-450) Mean Platelet Volume 7.7 FL (6.5-10.1) 8.4 FL (6.5-10.1) 8.5 FL (6.5-10.1) 8.3 FL (6.5-10.1) Neutrophils (%) (Auto) 54.9 % (45.0-75.0) 40.0 % (45.0-75.0) 42.1 % (45.0-75.0) 50.3 % (45.0-75.0) Lymphocytes (%) (Auto) 34.7 % (20.0-45.0) 49.4 % (20.0-45.0) 46.1 % (20.0-45.0) 35.7 % (20.0-45.0) Monocytes (%) (Auto) 9.5 % (1.0-10.0) 10.2 % (1.0-10.0) 11.3 % (1.0-10.0) 13.2 % (1.0-10.0) Eosinophils (%) (Auto) 0.0 % (0.0-3.0) 0.0 % (0.0-3.0) 0.0 % (0.0-3.0) 0.1 % (0.0-3.0) Basophils (%) (Auto) 0.9 % (0.0-2.0) 0.3 % (0.0-2.0) 0.5 % (0.0-2.0) 0.7 % (0.0-2.0) Sodium Level 140 MMOL/L (136-145) 142 MMOL/L (136-145) 139 MMOL/L (136-145) 139 MMOL/L (136-145) Potassium Level 4.3 MMOL/L (3.5-5.1) 4.4 MMOL/L (3.5-5.1) 4.0 MMOL/L (3.5-5.1) 4.6 MMOL/L (3.5-5.1) Chloride Level 104 MMOL/L (98-107) 106 MMOL/L (98-107) 104 MMOL/L (98-107) 103 MMOL/L (98-107) Carbon Dioxide Level 31 MMOL/L (21-32) 30 MMOL/L (21-32) 29 MMOL/L (21-32) 32 MMOL/L (21-32) Anion Gap 6 mmol/L (5-15) 6 mmol/L (5-15) 6 mmol/L (5-15) 4 mmol/L (5-15) Blood Urea Nitrogen 18 mg/dL (7-18) 17 mg/dL (7-18) 18 mg/dL (7-18) 16 mg/dL (7-18) Creatinine 0.9 MG/DL (0.55-1.30) 1.0 MG/DL (0.55-1.30) 1.1 MG/DL (0.55-1.30) 1.0 MG/DL (0.55-1.30) Estimat Glomerular Filtration Rate > 60 mL/min (>60) 56.2 mL/min (>60) 50.3 mL/min (>60) 56.2 mL/min (>60) Glucose Level 112 MG/DL (74-106) 81 MG/DL (74-106) 159 MG/DL (74-106) 100 MG/DL (74-106) Calcium Level 8.2 MG/DL (8.5-10.1) 8.5 MG/DL (8.5-10.1) 8.6 MG/DL (8.5-10.1) 8.6 MG/DL (8.5-10.1) Hepatitis A IgM Antibody Negative (Negative) Hepatitis B Surface Antigen Negative (Negative) Hepatitis B Core IgM Antibody Negative (Negative) Hepatitis C Antibody >11.0 s/co ratio HIV (1&2) Antibody Rapid Negative (NEGATIVE) Height (Feet): 5 Height (Inches): 6.00 Weight (Pounds): 200 Objective Physical Exam Vitals: unremarkable Sp02 EP Interpretation: reviewed, normal General Appearance: well appearing Heent: normocephalic, atraumatic, hearing grossly normal, normal pharynx Neck: full range of motion, supple, no meningismus Respiratory: chest non-tender, lungs clear, normal breath sounds Cardiovascular: regular rate, rhythm, no murmur +++scar right breast Gastrointestinal: normal bowel sounds, non tender, no mass, no organomegaly, no bruit, non-distended Musculoskeletal: back normal, normal range of motion, gait/station normal, other - Lower extremities show some minimal erythema. Right tib-fib has previous scarring and there is 1 area of about 2 cm with scab/eschar with serous drainage. Psychiatric: mood/affect normal José Luis Collins MD Jul 09, 2020 07:02
--- NOTE | 2020-07-09 07:20 | NUR ---
NURSE NOTES: RECEIVED PATIENT FROM DAYNA,RN. PATIENT IS A/A/OX2, AMBULATE WITH A STEADY GAIT. PATIENT APPEARED DISORGANIZED THOUGHTS. CONSTANTLY FLUSHING THE TOILET. ON ROOM AIM, NO ACUTE DISTRESS NOTED. NO IV ACCESS, MD AWARE. PATIENT REFUSED NEW IV INSERTION. COLOSTOMY BAG INPLACED, CLEAN AND DRY. BILATERAL EXTREMITY DRY, OPEN TO AIR. BED IS LOCKED AND LOW, BED ALARMS ACTIVE, SIDE RAILS UPX2 AND CALL LIGHT IS WITHIN REACH. WILL CONTINUE TO MONITOR.
--- NOTE | 2020-07-09 07:30 | NUR ---
HAND-OFF: Report given to CHARITO Johnson.
[2020-07-09 08:00] VITALS: BP 140/68
[2020-07-09] MEDS: QUEtiapine 200mg tab ORAL SCH (08:22)
[2020-07-09] MEDS: OLANZapine 10mg tab ORAL SCH ×2 (08:22→17:11)
[2020-07-09] MEDS: Docusate 100mg cap ORAL SCH (08:23)
[2020-07-09] MEDS: Bactrim-DS 1 tab ORAL SCH ×2 (08:23→20:41)
[2020-07-09] MEDS: Depakote 500mg tab ORAL SCH ×2 (08:23→20:41)
[2020-07-09] MEDS: PARoxetine HCL 20mg tab ORAL SCH (08:23)
[2020-07-09] MEDS: Sennosides 8.6mg tab ORAL SCH (08:23)
[2020-07-09] MEDS: Heparin 5000 units/ml inj SUBQ SCH ×2 (08:24→20:42)
--- NOTE | 2020-07-09 09:42 | General Progress Note ---
Subjective Constitutional: Reports: weakness Allergies: Coded Allergies: No Known Allergies (Unverified , 07/03/20) All Systems: reviewed and negative except above Subjective calm in room Objective Last 24 Hour Vital Signs Date Time Temp Pulse Resp B/P (MAP) Pulse Ox O2 Delivery O2 Flow Rate FiO2 07/09/20 08:00 97.9 83 20 140/68 (92) 96 07/09/20 04:00 96.8 66 17 143/88 (106) 95 07/08/20 21:00 Room Air 07/08/20 20:00 97.3 63 17 142/83 (102) 95 07/08/20 16:00 98.1 72 18 108/82 (91) 97 07/08/20 12:00 98.6 69 19 141/72 (95) 97 Intake and Output 07/08/20 07/09/20 19:00 07:00 Intake Total 980 ml Balance 980 ml Intake Oral 980 ml # Voids 3 3 Laboratory Tests 07/09/20 05:20: White Blood Count 4.5L, Red Blood Count 5.04, Hemoglobin 15.4, Hematocrit 48.7H, Mean Corpuscular Volume 97, Mean Corpuscular Hemoglobin 30.6, Mean Corpuscular Hemoglobin Concent 31.7L, Red Cell Distribution Width 13.2, Platelet Count 146L, Mean Platelet Volume 8.3, Neutrophils (%) (Auto) 50.3, Lymphocytes (%) (Auto) 35.7, Monocytes (%) (Auto) 13.2H, Eosinophils (%) (Auto) 0.1, Basophils (%) (Auto) 0.7, Sodium Level 139, Potassium Level 4.6, Chloride Level 103, Carbon Dioxide Level 32, Anion Gap 4L, Blood Urea Nitrogen 16, Creatinine 1.0, Estimat Glomerular Filtration Rate 56.2, Glucose Level 100, Calcium Level 8.6 Height (Feet): 5 Height (Inches): 6.00 Weight (Pounds): 200 General Appearance: lethargic EENT: normal ENT inspection Neck: normal alignment Cardiovascular: normal peripheral pulses, normal rate, regular rhythm Respiratory/Chest: chest wall non-tender, lungs clear, normal breath sounds Abdomen: normal bowel sounds, non tender, soft Extremities: normal inspection Edema: no edema noted Arm (L), no edema noted Arm (R), no edema noted Leg (L), no edema noted Leg (R), no edema noted Pedal (L), no edema noted Pedal (R), no edema noted Generalized Neurologic: motor weakness Skin: normal pigmentation, warm/dry Assessment/Plan Problem List: (1) Breast cancer ICD Codes: C50.919 - Malignant neoplasm of unspecified site of unspecified female breast SNOMED: 681212075 (2) COPD (chronic obstructive pulmonary disease) ICD Codes: J44.9 - Chronic obstructive pulmonary disease, unspecified SNOMED: 18731636 (3) Paranoia ICD Codes: F22 - Delusional disorders SNOMED: 117407560 (4) Bilateral lower leg cellulitis ICD Codes: L03.116 - Cellulitis of left lower limb; L03.115 - Cellulitis of right lower limb SNOMED: 138126568 Status: stable, progressing Assessment/Plan: wound care, abx psyc tx cbc bmp am psyc transfer Iam Portillo Jul 09, 2020 09:42
--- NOTE | 2020-07-09 11:13 | Psychiatry Consultation ---
Psychiatry Consultation Psychiatry Consultation Chief Complaint: Skin Rash/Abscess History of Present Illness: 64yo female who is confused and disorganized with mood lability worsened by the stress of her medical illness. Allergies: Coded Allergies: No Known Allergies (Unverified , 07/03/20) Medication History Scheduled Cranberry Fruit Concentrate (Cranberry), 450 MG PO BID, (Reported) Divalproex Sodium* (Depakote Er*), 500 MG ORAL EVERY 12 HOURS, (Reported) Docusate Sodium* (Colace*), 100 MG ORAL DAILY, (Reported) Ferrous Sulfate* (Ferrous Sulfate*), 325 MG ORAL DAILY, (Reported) Multivitamin With Minerals (Multivitamins With Minerals*), 1 TAB ORAL DAILY, (Reported) Olanzapine* (Zyprexa*), 10 MG ORAL BID, (Reported) Paroxetine Hcl* (Paxil*), 20 MG ORAL DAILY, (Reported) Quetiapine Fumarate* (Seroquel*), 200 MG ORAL DAILY, (Reported) Rivaroxaban (Xarelto), 20 MG ORAL Evening, (Reported) Sennosides (Senna), 2 TAB PO BEDTIME, (Reported) Zinc Sulfate (Zinc Sulfate*), 220 MG ORAL DAILY, (Reported) Scheduled PRN Acetaminophen* (Acetaminophen 325MG Tablet*), 325 MG ORAL Q6H PRN for Mild Pain (Pain Scale 1-3), (Reported) Acetaminophen* (Acetaminophen Extra Strength*), 1,000 MG ORAL Q6H PRN for Moderate Pain (Pain Scale 4-6), (Reported) Ascorbate Calcium (Vitamin C), 500 MG PO DAILY PRN for supplement, (Reported) Na Phos,M-B/Na Phos,Di-Ba* (Fleet Enema*), 133 ML RECTAL DAILY PRN for Constipation, (Reported) Pantoprazole (Pantoprazole), 40 MG ORAL AC PRN for gerd, (Reported) Discontinued Medications Acetaminophen* (Tylenol*), 650 MG ORAL Q6HR PRN for MILD/TEMP, (Reported) Discontinued Reason: Prescription changed Divalproex Sodium* (Depakote*), 500 MG PO Q12HR, (Reported) Discontinued Reason: Prescription changed Magnesium Hydroxide* (Milk Of Magnesia*), 30 ML ORAL DAILY, (Reported) Discontinued Reason: MD discontinued med Rivaroxaban (Xarelto*), 20 MG ORAL DAILY, (Reported) Discontinued Reason: Prescription changed Zinc Gluconate (Zinc), 220 MG ORAL DAILY PRN for supplement, (Reported) Discontinued Reason: Prescription changed Objective Data Height (Feet): 5 Height (Inches): 6.00 Weight (Pounds): 200 Appearance: disheveled Affect: labile Mood: depressed Thought Process: goal-directed, disorganized Thought Content: other Perceptual Disturbances: auditory Suicidal Ideation: no plan Assessment/Plan Assessment/Plan: Cointinue Zyprexa 10mg PO BID and Risperdal 1mg PO BID with Seroquel 200mg PO qhs. Ativan 1mg PO q6h prn anxiety. 20minutes or Cognitive behavioral therapy provided whereas I helped the patient identify her automatic negative thoughts and helped her convert her negative thoughts to more positive thoughts. Transfer to psych at [facility] when medically cleared Diagnosis [place] I: Paranoid Schizophrenia Drake Rivera MD Jul 09, 2020 11:13
[2020-07-09 12:04] VITALS: BP_SYST 143; BP_SYST 156; BP_DIAS 65; BP_DIAS 75
--- NOTE | 2020-07-09 14:56 | NUR ---
CASE MANAGEMENT:REVIEW SI;BLE CELLULITIS 96.8 83 20 143/65 95% ON RA WBC 4.5 IS;BACTRIM DS PO Q12 RISPERDAL PO BID PROTONIX PO QD SEROQUEL PO QD FEOSOL PO QD HEPARIN SUBQ Q12 MED SURG STATUS DCP;SNF PLACEMENT
--- NOTE | 2020-07-09 15:06 | NUR ---
ASSISTANT PRODUCE MANAGER NOTE FOLLOW UP CALL MADE TO [facility] [employer] [phone]. S/W DADA, STATED SHE WILL HAVE DON REVIEW THE INQUIRY AND CALL CM BACK WITH AN ANSWER.
--- NOTE | 2020-07-09 15:40 | Infectious Diseases Prog Note ---
Assessment/Plan Assessment: R>L LE cellulitis; improvnig -wound cx MRSA Afebrile No leukocytosis -u/a neg Hep C + -Abd US: Negative limited evaluation. Hepatomegaly and fatty infiltration of the liver. Nonvisualization of the gallbladder. Common bile duct measures approximate 1 cm and is dilated. It is unclear whether the common bile duct is dilated as a result of previous cholecystectomy or whether the common bile duct is dilated due to etiology such as choledocholithiasis.. Clinical correlation and correlation with laboratory values are advised to MRCP study will provide additional information, as deemed necessary. COPD paranoid schizophrenia R breast CA sp mastectomy [place] resident [facility]) Plan: -PO Bactrim #5/10 -07/06 Sp Keflex #3 -07/04 SP ANcef #1 -07/03 SP Ceftriaxone x1 -f/u cx -Monitor CBC/CMP, temperatures -wound care per hospital protocol Thank you for consulting [facility]. Will continue to follow along with you. Discussed with RN. Subjective Allergies: Coded Allergies: No Known Allergies (Unverified , 07/03/20) afebrile no leukocytosis Objective Last 24 Hour Vital Signs Date Time Temp Pulse Resp B/P (MAP) Pulse Ox O2 Delivery O2 Flow Rate FiO2 07/09/20 12:04 96.8 69 18 143/65 (91) 97 07/09/20 09:00 Room Air 07/09/20 08:00 97.9 83 20 140/68 (92) 96 07/09/20 04:00 96.8 66 17 143/88 (106) 95 07/08/20 21:00 Room Air 07/08/20 20:00 97.3 63 17 142/83 (102) 95 07/08/20 16:00 98.1 72 18 108/82 (91) 97 Height (Feet): 5 Height (Inches): 6.00 Weight (Pounds): 200 GENERAL: Confused in bed, refusing to answer questions. CARDIOVASCULAR: No murmur. LUNGS: Poor air exchange. ABDOMEN: Bowel sounds distant. EXTREMITIES: No cyanosis, clubbing, or edema. R marino w evidence of prior surgery- redneses, swelling, and warmth; L LE lesser degree of erythema or swelling NEUROLOGIC: The patient moves all extremities, slightly weak. Laboratory Tests Test 07/09/20 05:20 White Blood Count 4.5 K/UL (4.8-10.8) L Red Blood Count 5.04 M/UL (4.20-5.40) Hemoglobin 15.4 G/DL (12.0-16.0) Hematocrit 48.7 % (37.0-47.0) H Mean Corpuscular Volume 97 FL (80-99) Mean Corpuscular Hemoglobin 30.6 PG (27.0-31.0) Mean Corpuscular Hemoglobin Concent 31.7 G/DL (32.0-36.0) L Red Cell Distribution Width 13.2 % (11.6-14.8) Platelet Count 146 K/UL (150-450) L Mean Platelet Volume 8.3 FL (6.5-10.1) Neutrophils (%) (Auto) 50.3 % (45.0-75.0) Lymphocytes (%) (Auto) 35.7 % (20.0-45.0) Monocytes (%) (Auto) 13.2 % (1.0-10.0) H Eosinophils (%) (Auto) 0.1 % (0.0-3.0) Basophils (%) (Auto) 0.7 % (0.0-2.0) Sodium Level 139 MMOL/L (136-145) Potassium Level 4.6 MMOL/L (3.5-5.1) Chloride Level 103 MMOL/L (98-107) Carbon Dioxide Level 32 MMOL/L (21-32) Anion Gap 4 mmol/L (5-15) L Blood Urea Nitrogen 16 mg/dL (7-18) Creatinine 1.0 MG/DL (0.55-1.30) Estimat Glomerular Filtration Rate 56.2 mL/min (>60) Glucose Level 100 MG/DL (74-106) Calcium Level 8.6 MG/DL (8.5-10.1) Current Medications Medications (Trade) Dose Ordered Sig/Alli Route PRN Reason Start Time Stop Time Status Last Admin Dose Admin Divalproex Sodium (Depakote) 500 mg Q12HR ORAL 07/04/20 09:00 08/03/20 08:59 07/09/20 08:23 Docusate Sodium (Colace) 100 mg DAILY ORAL 07/04/20 09:00 08/03/20 08:59 07/09/20 08:23 Ferrous Sulfate (Feosol) 325 mg DAILY ORAL 07/04/20 09:00 10/02/20 08:59 07/09/20 08:23 Heparin Sodium (Porcine) (Heparin 5000 units/ml) 5,000 units EVERY 12 HOURS SUBQ 07/04/20 09:00 08/18/20 08:59 07/09/20 08:24 Lorazepam (Ativan) 1 mg Q6H PRN ORAL For Anxiety 07/04/20 14:45 07/11/20 14:44 07/08/20 00:46 Morphine Sulfate (Morphine Sulfate) 2 mg Q4H PRN IVP For Pain 07/04/20 06:15 07/11/20 06:14 Olanzapine (ZyPREXA) 10 mg BID ORAL 07/04/20 09:00 08/18/20 08:59 07/09/20 08:22 Pantoprazole (Protonix) 40 mg DAILY ORAL 07/04/20 09:00 08/03/20 08:59 07/09/20 08:22 Paroxetine HCl (Paxil) 20 mg DAILY ORAL 07/04/20 09:00 08/03/20 08:59 07/09/20 08:23 Quetiapine Fumarate (SEROqueL) 200 mg DAILY ORAL 07/04/20 09:00 08/18/20 08:59 07/09/20 08:22 Risperidone (RisperDAL) 1 mg BID ORAL 07/04/20 18:00 08/18/20 17:59 07/09/20 08:23 Sennosides (Senokot) 8.6 mg DAILY ORAL 07/04/20 09:00 08/03/20 08:59 07/09/20 08:23 Trimethoprim/ Sulfamethoxazole (Bactrim-DS) 1 tab Q12HR ORAL 07/05/20 21:00 07/12/20 20:59 07/09/20 08:23 Omaira Eduardo M.D. Jul 09, 2020 15:39
[2020-07-09 16:00] VITALS: BP 148/75
--- NOTE | 2020-07-09 16:07 | NUR ---
Social Work This SW spoke with Onofre, nursing admissions at [facility] to explain there are no other facilities that cannot accept patient. Patient is on a bed hold at [place], while Onofre explains that she will accept patient back to their facility tomorrow (will have a private room). 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
--- NOTE | 2020-07-09 18:56 | NUR ---
NURSE HAND-OFF: Important Events on Shift:[NO SIGNIFICANT CHANGE IN CONDITION] Patient Status: [STABLE] Diet: [REG] Pending Orders: [LABS] Pending Results/Labs:[IN AM] Pending MD notification:[] Latest Vital Signs: Temperature 97.9 , Pulse 76 , B/P 148 /75 , Respiratory Rate 18 , O2 SAT 97 , Room Air, O2 Flow Rate . Vital Sign Comment: [] Latest Santizo Fall Score: 50 Fall Risk: High Risk Safety Measures: Call light Within Reach, Bed Alarm Zone 1, Side Rails Side Rails x2, Bed position Low and Locked. Fall Precautions: Yellow Socks Patient Fall Education Report given to [KEYANNA].
--- NOTE | 2020-07-09 19:31 | NUR ---
NURSE NOTES: Received report from PING Adame. Sleeping in bed, on room air, ambulatory. Colostomy bag in place on LLQ. No IV access, MD aware. No acute distress noted. Denies pain. R arm precaution. Bed locked, lowest position,alarm on, call light within reach. Will continue to monitor.
[2020-07-09 20:00] VITALS: BP 118/60
[2020-07-10] VITALS: BP 125/75
[2020-07-10 04:00] VITALS: BP 120/68
[2020-07-10 06:41] LABS: BASOPHILS % (AUTO) 0.9 % (0.0-2.0); HEMOGLOBIN 16.8 G/DL (12.0-16.0); LYMPHOCYTES % (AUTO) 46.5 % (20.0-45.0); MEAN CORPUSCULAR VOLUME 98 FL (80-99); MONOCYTES % (AUTO) 11.6 % (1.0-10.0); PLATELET COUNT 145 K/UL (150-450); RED BLOOD COUNT 5.51 M/UL (4.20-5.40); RED CELL DISTRIBUTION WIDTH 13.6 % (11.6-14.8); WHITE BLOOD COUNT 5.3 K/UL (4.8-10.8)
--- NOTE | 2020-07-10 06:52 | NUR ---
NURSE HAND-OFF: Important Events on Shift:none Patient Status: stable Diet: reg Pending Orders: discharge Pending Results/Labs:am labs Pending MD notification: Latest Vital Signs: Temperature 97.5 , Pulse 73 , B/P 120 /68 , Respiratory Rate 18 , O2 SAT 94 , Room Air, O2 Flow Rate . Vital Sign Comment: [] Latest Santizo Fall Score: 50 Fall Risk: High Risk Safety Measures: Call light Within Reach, Bed Alarm Zone 1, Side Rails Side Rails x2, Bed position Low and Locked. Fall Precautions: Genie Still Patient Fall Education Addendum: 07/10/20 at 0715 by KEYANNA VELAZQUEZ RN RN HAND-OFF: Report given to
--- NOTE | 2020-07-10 06:55 | Hematology/Onc Progress Note ---
Assessment/Plan Assessment/Plan Assesment and Recs # Leukopenia with Monocytosis due to hepatitis C++ --> likely due to reactive process --> wbc remains 6-->4-->4.5-->5 --> hep and hiv ordered==> HEP C++ # Thrombocytopenia is likely hep c related --> us abd has been ordered --> HEP C+++ --> plt 145 # Breast cancer on the right side s/p mastectomy, is not on hormonal therapy --> obtain outside records, order placed --> hold off hormonal medications, surgery may be years ago --> eval for recurrence as needed --> 06/04 unable to obtain records per snf now # Erythrocytosis likely is due to dehydration --> trend hgb as needed --> hgb 16.5-->14.6-->14-->16.5 --> no hemolysis noted # Bilateral lower leg cellulitis --> as per id on abx, right leg with gauze over it --> wound care --> eval as needed surg # Dvt ppx lovenox sq Appreciate consultation and brian MCNEILL Subjective Constitutional: Denies: no symptoms, chills, fever, malaise, weakness, other Cardiovascular: Denies: no symptoms, chest pain, edema, irregular heart rate, lightheadedness, palpitations, syncope, other Genitourinary: Denies: no symptoms, burning, discharge, frequency, flank pain, hematuria, incontinence, pain, urgency, other Neurologic/Psychiatric: Denies: no symptoms, anxiety, depressed, emotional problems, headache, numbness, paresthesia, pre-existing deficit, seizure, tingling, tremors, weakness, other Endocrine: Denies: no symptoms, excessive sweating, flushing, intolerance to cold, intolerance to heat, increased hunger, increased thirst, increased urine, unexplained weight gain, unexplained weight loss, other Hematologic/Lymphatic: Denies: no symptoms, anemia, easy bleeding, easy bruising, adenopathy, other Allergies: Coded Allergies: No Known Allergies (Unverified , 07/03/20) Subjective 07/05 llq colostomy bag, a+ox1 no bleeding, labs reviewed, brian rn, hgb 16 07/06 wbc is lower, no bleeding, otherwise no f/c, no night sweats 07/08 refusing po meds, a+o x2, no bleeding, labs reviewed, meds noted 07/09 meds reviewed, labs noted, no night sweats, wbc 4.5 07/10 llq colostomy patent, no bleeding, meds noted Objective Objective Current Medications Medications (Trade) Dose Ordered Sig/Alli Route PRN Reason Start Time Stop Time Status Last Admin Dose Admin Divalproex Sodium (Depakote) 500 mg Q12HR ORAL 07/04/20 09:00 08/03/20 08:59 07/09/20 20:41 Docusate Sodium (Colace) 100 mg DAILY ORAL 07/04/20 09:00 08/03/20 08:59 07/09/20 08:23 Ferrous Sulfate (Feosol) 325 mg DAILY ORAL 07/04/20 09:00 10/02/20 08:59 07/09/20 08:23 Heparin Sodium (Porcine) (Heparin 5000 units/ml) 5,000 units EVERY 12 HOURS SUBQ 07/04/20 09:00 08/18/20 08:59 07/09/20 08:24 Lorazepam (Ativan) 1 mg Q6H PRN ORAL For Anxiety 07/04/20 14:45 07/11/20 14:44 07/08/20 00:46 Morphine Sulfate (Morphine Sulfate) 2 mg Q4H PRN IVP For Pain 07/04/20 06:15 07/11/20 06:14 Olanzapine (ZyPREXA) 10 mg BID ORAL 07/04/20 09:00 08/18/20 08:59 07/09/20 17:11 Pantoprazole (Protonix) 40 mg DAILY ORAL 07/04/20 09:00 08/03/20 08:59 07/09/20 08:22 Paroxetine HCl (Paxil) 20 mg DAILY ORAL 07/04/20 09:00 08/03/20 08:59 07/09/20 08:23 Quetiapine Fumarate (SEROqueL) 200 mg DAILY ORAL 07/04/20 09:00 08/18/20 08:59 07/09/20 08:22 Risperidone (RisperDAL) 1 mg BID ORAL 07/04/20 18:00 08/18/20 17:59 07/09/20 17:11 Sennosides (Senokot) 8.6 mg DAILY ORAL 07/04/20 09:00 08/03/20 08:59 07/09/20 08:23 Trimethoprim/ Sulfamethoxazole (Bactrim-DS) 1 tab Q12HR ORAL 07/05/20 21:00 07/12/20 20:59 07/09/20 20:41 Last 24 Hour Vital Signs Date Time Temp Pulse Resp B/P (MAP) Pulse Ox O2 Delivery O2 Flow Rate FiO2 07/10/20 04:00 97.5 73 18 120/68 (85) 94 07/10/20 00:00 98.1 68 20 125/75 (92) 96 07/09/20 21:00 Room Air 07/09/20 20:00 97.6 74 20 118/60 (79) 96 07/09/20 16:00 97.9 76 18 148/75 (99) 97 07/09/20 12:04 96.8 69 18 143/65 (91) 97 07/09/20 09:00 Room Air 07/09/20 08:00 97.9 83 20 140/68 (92) 96 07/09/20 04:00 96.8 66 17 143/88 (106) 95 07/08/20 21:00 Room Air 07/08/20 20:00 97.3 63 17 142/83 (102) 95 07/08/20 16:00 98.1 72 18 108/82 (91) 97 07/08/20 12:00 98.6 69 19 141/72 (95) 97 07/08/20 09:00 Room Air 07/08/20 08:00 97.7 75 19 148/84 (105) 97 Intake and Output 07/09/20 07/10/20 19:00 07:00 Intake Total 840 ml Output Total 0 ml Balance 840 ml Intake Oral 840 ml Output Stool Total 0 ml # Voids 3 4 Labs Test 07/08/20 09:25 07/09/20 05:20 07/10/20 06:05 White Blood Count 5.5 K/UL (4.8-10.8) 4.5 K/UL (4.8-10.8) 5.3 K/UL (4.8-10.8) Red Blood Count 5.12 M/UL (4.20-5.40) 5.04 M/UL (4.20-5.40) 5.51 M/UL (4.20-5.40) Hemoglobin 15.9 G/DL (12.0-16.0) 15.4 G/DL (12.0-16.0) 16.8 G/DL (12.0-16.0) Hematocrit 50.4 % (37.0-47.0) 48.7 % (37.0-47.0) 54.0 % (37.0-47.0) Mean Corpuscular Volume 98 FL (80-99) 97 FL (80-99) 98 FL (80-99) Mean Corpuscular Hemoglobin 31.0 PG (27.0-31.0) 30.6 PG (27.0-31.0) 30.4 PG (27.0-31.0) Mean Corpuscular Hemoglobin Concent 31.6 G/DL (32.0-36.0) 31.7 G/DL (32.0-36.0) 31.0 G/DL (32.0-36.0) Red Cell Distribution Width 13.9 % (11.6-14.8) 13.2 % (11.6-14.8) 13.6 % (11.6-14.8) Platelet Count 147 K/UL (150-450) 146 K/UL (150-450) 145 K/UL (150-450) Mean Platelet Volume 8.5 FL (6.5-10.1) 8.3 FL (6.5-10.1) 8.4 FL (6.5-10.1) Neutrophils (%) (Auto) 42.1 % (45.0-75.0) 50.3 % (45.0-75.0) 41.0 % (45.0-75.0) Lymphocytes (%) (Auto) 46.1 % (20.0-45.0) 35.7 % (20.0-45.0) 46.5 % (20.0-45.0) Monocytes (%) (Auto) 11.3 % (1.0-10.0) 13.2 % (1.0-10.0) 11.6 % (1.0-10.0) Eosinophils (%) (Auto) 0.0 % (0.0-3.0) 0.1 % (0.0-3.0) 0.0 % (0.0-3.0) Basophils (%) (Auto) 0.5 % (0.0-2.0) 0.7 % (0.0-2.0) 0.9 % (0.0-2.0) Sodium Level 139 MMOL/L (136-145) 139 MMOL/L (136-145) Potassium Level 4.0 MMOL/L (3.5-5.1) 4.6 MMOL/L (3.5-5.1) Chloride Level 104 MMOL/L (98-107) 103 MMOL/L (98-107) Carbon Dioxide Level 29 MMOL/L (21-32) 32 MMOL/L (21-32) Anion Gap 6 mmol/L (5-15) 4 mmol/L (5-15) Blood Urea Nitrogen 18 mg/dL (7-18) 16 mg/dL (7-18) Creatinine 1.1 MG/DL (0.55-1.30) 1.0 MG/DL (0.55-1.30) Estimat Glomerular Filtration Rate 50.3 mL/min (>60) 56.2 mL/min (>60) Glucose Level 159 MG/DL (74-106) 100 MG/DL (74-106) Calcium Level 8.6 MG/DL (8.5-10.1) 8.6 MG/DL (8.5-10.1) Height (Feet): 5 Height (Inches): 6.00 Weight (Pounds): 200 Objective Physical Exam Vitals: unremarkable Sp02 EP Interpretation: reviewed, normal General Appearance: well appearing Heent: normocephalic, atraumatic, hearing grossly normal, normal pharynx Neck: full range of motion, supple, no meningismus Respiratory: chest non-tender, lungs clear, normal breath sounds Cardiovascular: regular rate, rhythm, no murmur +++scar right breast Gastrointestinal: normal bowel sounds, non tender, no mass, no organomegaly, ++colostomy Musculoskeletal: back normal, normal range of motion, gait/station normal, other - Lower extremities show some minimal erythema. Psychiatric: mood/affect normal José Luis Collins MD Jul 10, 2020 06:54
[2020-07-10 06:56] LABS: CALCIUM 8.4 MG/DL (8.5-10.1); POTASSIUM 4.6 MMOL/L (3.5-5.1)
--- NOTE | 2020-07-10 07:29 | NUR ---
NURSE NOTES: Report received from CHARITO Finley. Patient awake in bed, alert and oriented x 1, no SOB, bed in lowest position with breaks engaged and alarm on, denied any pain or discomfort at this time, no IV line, aware. Colostomy on LLQ. On room air. Will continue to monitor and proceed with plan of care. Call light within reach.
--- NOTE | 2020-07-10 07:58 | Psychiatry Consultation ---
Psychiatry Consultation Psychiatry Consultation Chief Complaint: Skin Rash/Abscess History of Present Illness: 64-year-old female patient she still confused disorganized regarding mental sta tus is got declining cognition below her baseline mood lability because of her cellulitis is causing increased agitation and mood lability confusion and saw her attending has requested daily psychiatric consultation to prevent any further decline in her cognition and also to stabilize her mood lability Mental status examination: 64-year-old female her appearance is disheveled at irritable agitated affect labile intellect poor mood depressed anxious motor activity psychomotor agitation judgment is poor orientation x2 speech is nonsensical thought process disorganized logical insight judgment is poor Allergies: Coded Allergies: No Known Allergies (Unverified , 07/03/20) Medication History Scheduled Cranberry Fruit Concentrate (Cranberry), 450 MG PO BID, (Reported) Divalproex Sodium* (Depakote Er*), 500 MG ORAL EVERY 12 HOURS, (Reported) Docusate Sodium* (Colace*), 100 MG ORAL DAILY, (Reported) Ferrous Sulfate* (Ferrous Sulfate*), 325 MG ORAL DAILY, (Reported) Multivitamin With Minerals (Multivitamins With Minerals*), 1 TAB ORAL DAILY, (Reported) Olanzapine* (Zyprexa*), 10 MG ORAL BID, (Reported) Paroxetine Hcl* (Paxil*), 20 MG ORAL DAILY, (Reported) Quetiapine Fumarate* (Seroquel*), 200 MG ORAL DAILY, (Reported) Rivaroxaban (Xarelto), 20 MG ORAL Evening, (Reported) Sennosides (Senna), 2 TAB PO BEDTIME, (Reported) Zinc Sulfate (Zinc Sulfate*), 220 MG ORAL DAILY, (Reported) Scheduled PRN Acetaminophen* (Acetaminophen 325MG Tablet*), 325 MG ORAL Q6H PRN for Mild Pain (Pain Scale 1-3), (Reported) Acetaminophen* (Acetaminophen Extra Strength*), 1,000 MG ORAL Q6H PRN for Moderate Pain (Pain Scale 4-6), (Reported) Ascorbate Calcium (Vitamin C), 500 MG PO DAILY PRN for supplement, (Reported) Na Phos,M-B/Na Phos,Di-Ba* (Fleet Enema*), 133 ML RECTAL DAILY PRN for Constipation, (Reported) Pantoprazole (Pantoprazole), 40 MG ORAL AC PRN for gerd, (Reported) Discontinued Medications Acetaminophen* (Tylenol*), 650 MG ORAL Q6HR PRN for MILD/TEMP, (Reported) Discontinued Reason: Prescription changed Divalproex Sodium* (Depakote*), 500 MG PO Q12HR, (Reported) Discontinued Reason: Prescription changed Magnesium Hydroxide* (Milk Of Magnesia*), 30 ML ORAL DAILY, (Reported) Discontinued Reason: MD discontinued med Rivaroxaban (Xarelto*), 20 MG ORAL DAILY, (Reported) Discontinued Reason: Prescription changed Zinc Gluconate (Zinc), 220 MG ORAL DAILY PRN for supplement, (Reported) Discontinued Reason: Prescription changed Objective Data Height (Feet): 5 Height (Inches): 6.00 Weight (Pounds): 200 Assessment/Plan Assessment/Plan: Cointinue Zyprexa 10mg PO BID and Risperdal 1mg PO BID with Seroquel 200mg PO qhs. Ativan 1mg PO q6h prn anxiety. 20minutes or Cognitive behavioral therapy provided whereas I helped the patient identify her automatic negative thoughts and helped her convert her negative thoughts to more positive thoughts. Transfer to psych at [facility] when medically cleared Diagnosis Shonto I: Schizoaffective bipolar type Drake Rivera MD Jul 10, 2020 07:58
[2020-07-10 08:00] VITALS: BP 140/82
[2020-07-10] MEDS: OLANZapine 10mg tab ORAL SCH (08:20)
[2020-07-10] MEDS: Depakote 500mg tab ORAL SCH (08:20)
[2020-07-10] MEDS: Heparin 5000 units/ml inj SUBQ SCH (08:20)
[2020-07-10] MEDS: Docusate 100mg cap ORAL SCH (08:21)
[2020-07-10] MEDS: Sennosides 8.6mg tab ORAL SCH (08:21)
[2020-07-10] MEDS: Bactrim-DS 1 tab ORAL SCH (08:21)
[2020-07-10] MEDS: QUEtiapine 200mg tab ORAL SCH (08:21)
[2020-07-10] MEDS: PARoxetine HCL 20mg tab ORAL SCH (08:21)
[2020-07-10] MEDS ORDERED: LORazepam 1mg tab ORAL PRN (09:00)
[2020-07-10] MEDS ORDERED: Morphine Sulfate 2mg/ml Inj(IV/IM USE ONLY) IVP PRN (09:30)
[2020-07-10 12:00] VITALS: BP 132/60
--- NOTE | 2020-07-10 13:10 | General Progress Note ---
Subjective Constitutional: Reports: weakness Allergies: Coded Allergies: No Known Allergies (Unverified , 07/03/20) All Systems: reviewed and negative except above Subjective calm in room Objective Last 24 Hour Vital Signs Date Time Temp Pulse Resp B/P (MAP) Pulse Ox O2 Delivery O2 Flow Rate FiO2 07/10/20 09:00 Room Air 07/10/20 08:00 98.2 88 20 140/82 (101) 96 07/10/20 04:00 97.5 73 18 120/68 (85) 94 07/10/20 00:00 98.1 68 20 125/75 (92) 96 07/09/20 21:00 Room Air 07/09/20 20:00 97.6 74 20 118/60 (79) 96 07/09/20 16:00 97.9 76 18 148/75 (99) 97 Intake and Output 07/09/20 07/10/20 19:00 07:00 Intake Total 840 ml Output Total 0 ml Balance 840 ml Intake Oral 840 ml Output Stool Total 0 ml # Voids 3 4 Laboratory Tests 07/10/20 06:05: White Blood Count 5.3, Red Blood Count 5.51H, Hemoglobin 16.8H, Hematocrit 54.0H , Mean Corpuscular Volume 98, Mean Corpuscular Hemoglobin 30.4, Mean Corpuscular Hemoglobin Concent 31.0L, Red Cell Distribution Width 13.6, Platelet Count 145L, Mean Platelet Volume 8.4, Neutrophils (%) (Auto) 41.0L, Lymphocytes (%) (Auto) 46.5H, Monocytes (%) (Auto) 11.6H, Eosinophils (%) (Auto) 0.0, Basophils (%) (Auto) 0.9, Sodium Level 140, Potassium Level 4.6, Chloride Level 105, Carbon Dioxide Level 31, Anion Gap 4L, Blood Urea Nitrogen 18, Creatinine 1.0, Estimat Glomerular Filtration Rate 56.2, Glucose Level 103, Calcium Level 8.4L Height (Feet): 5 Height (Inches): 6.00 Weight (Pounds): 200 General Appearance: lethargic, confused EENT: normal ENT inspection Neck: normal alignment Cardiovascular: normal peripheral pulses, normal rate, regular rhythm Respiratory/Chest: chest wall non-tender, lungs clear, normal breath sounds Abdomen: normal bowel sounds, non tender, soft Extremities: normal inspection Edema: no edema noted Arm (L), no edema noted Arm (R), no edema noted Leg (L), no edema noted Leg (R), no edema noted Pedal (L), no edema noted Pedal (R), no edema noted Generalized Neurologic: motor weakness Skin: normal pigmentation, warm/dry Assessment/Plan Problem List: (1) Breast cancer ICD Codes: C50.919 - Malignant neoplasm of unspecified site of unspecified female breast SNOMED: 862358726 (2) COPD (chronic obstructive pulmonary disease) ICD Codes: J44.9 - Chronic obstructive pulmonary disease, unspecified SNOMED: 42500503 (3) Paranoia ICD Codes: F22 - Delusional disorders SNOMED: 426278816 (4) Bilateral lower leg cellulitis ICD Codes: L03.116 - Cellulitis of left lower limb; L03.115 - Cellulitis of right lower limb SNOMED: 911720542 Status: stable, progressing Assessment/Plan: wound care, abx psyc tx cbc bmp am dc if clear Iam Portillo DO Jul 10, 2020 13:10
--- NOTE | 2020-07-10 13:38 | Infectious Diseases Prog Note ---
Assessment/Plan Assessment: R>L LE cellulitis; improving -wound cx MRSA Afebrile No leukocytosis -u/a neg Hep C + -Abd US: Negative limited evaluation. Hepatomegaly and fatty infiltration of the liver. Nonvisualization of the gallbladder. Common bile duct measures approximate 1 cm and is dilated. It is unclear whether the common bile duct is dilated as a result of previous cholecystectomy or whether the common bile duct is dilated due to etiology such as choledocholithiasis.. Clinical correlation and correlation with laboratory values are advised to MRCP study will provide additional information, as deemed necessary. COPD paranoid schizophrenia R breast CA sp mastectomy [place] resident ([facility]) Plan: -PO Bactrim #6/ -07/06 Sp Keflex #3 -07/04 SP ANcef #1 -07/03 SP Ceftriaxone x1 -f/u cx -Monitor CBC/CMP, temperatures -wound care per hospital protocol Thank you for consulting [facility]. Will continue to follow along with you. Discussed with RN. Subjective Allergies: Coded Allergies: No Known Allergies (Unverified , 07/03/20) afebrile no leukocytosis Objective Last 24 Hour Vital Signs Date Time Temp Pulse Resp B/P (MAP) Pulse Ox O2 Delivery O2 Flow Rate FiO2 07/10/20 12:00 97.6 74 20 132/60 (84) 96 07/10/20 09:00 Room Air 07/10/20 08:00 98.2 88 20 140/82 (101) 96 07/10/20 04:00 97.5 73 18 120/68 (85) 94 07/10/20 00:00 98.1 68 20 125/75 (92) 96 07/09/20 21:00 Room Air 07/09/20 20:00 97.6 74 20 118/60 (79) 96 07/09/20 16:00 97.9 76 18 148/75 (99) 97 Height (Feet): 5 Height (Inches): 6.00 Weight (Pounds): 200 GENERAL: Confused in bed CARDIOVASCULAR: No murmur. LUNGS: Poor air exchange. ABDOMEN: Bowel sounds distant. EXTREMITIES: No cyanosis, clubbing, or edema. R marino w evidence of prior surgery- redneses, swelling, and warmth; L LE lesser degree of erythema or swel ling; improving NEUROLOGIC: The patient moves all extremities, slightly weak. Laboratory Tests Test 07/10/20 06:05 White Blood Count 5.3 K/UL (4.8-10.8) Red Blood Count 5.51 M/UL (4.20-5.40) H Hemoglobin 16.8 G/DL (12.0-16.0) H Hematocrit 54.0 % (37.0-47.0) H Mean Corpuscular Volume 98 FL (80-99) Mean Corpuscular Hemoglobin 30.4 PG (27.0-31.0) Mean Corpuscular Hemoglobin Concent 31.0 G/DL (32.0-36.0) L Red Cell Distribution Width 13.6 % (11.6-14.8) Platelet Count 145 K/UL (150-450) L Mean Platelet Volume 8.4 FL (6.5-10.1) Neutrophils (%) (Auto) 41.0 % (45.0-75.0) L Lymphocytes (%) (Auto) 46.5 % (20.0-45.0) H Monocytes (%) (Auto) 11.6 % (1.0-10.0) H Eosinophils (%) (Auto) 0.0 % (0.0-3.0) Basophils (%) (Auto) 0.9 % (0.0-2.0) Sodium Level 140 MMOL/L (136-145) Potassium Level 4.6 MMOL/L (3.5-5.1) Chloride Level 105 MMOL/L (98-107) Carbon Dioxide Level 31 MMOL/L (21-32) Anion Gap 4 mmol/L (5-15) L Blood Urea Nitrogen 18 mg/dL (7-18) Creatinine 1.0 MG/DL (0.55-1.30) Estimat Glomerular Filtration Rate 56.2 mL/min (>60) Glucose Level 103 MG/DL (74-106) Calcium Level 8.4 MG/DL (8.5-10.1) L Current Medications Medications (Trade) Dose Ordered Sig/Alli Route PRN Reason Start Time Stop Time Status Last Admin Dose Admin Divalproex Sodium (Depakote) 500 mg Q12HR ORAL 07/04/20 09:00 08/03/20 08:59 07/10/20 08:20 Docusate Sodium (Colace) 100 mg DAILY ORAL 07/04/20 09:00 08/03/20 08:59 07/10/20 08:21 Ferrous Sulfate (Feosol) 325 mg DAILY ORAL 07/04/20 09:00 10/02/20 08:59 07/10/20 08:21 Heparin Sodium (Porcine) (Heparin 5000 units/ml) 5,000 units EVERY 12 HOURS SUBQ 07/04/20 09:00 08/18/20 08:59 07/09/20 08:24 Lorazepam (Ativan) 1 mg Q6H PRN ORAL For Anxiety 07/10/20 09:00 07/17/20 08:59 Morphine Sulfate (Morphine Sulfate) 2 mg Q4H PRN IVP PAIN 4-10 07/10/20 09:30 07/17/20 09:29 Olanzapine (ZyPREXA) 10 mg BID ORAL 07/04/20 09:00 08/18/20 08:59 07/10/20 08:20 Pantoprazole (Protonix) 40 mg DAILY ORAL 07/04/20 09:00 08/03/20 08:59 07/10/20 08:20 Paroxetine HCl (Paxil) 20 mg DAILY ORAL 07/04/20 09:00 08/03/20 08:59 07/10/20 08:21 Quetiapine Fumarate (SEROqueL) 200 mg DAILY ORAL 07/04/20 09:00 08/18/20 08:59 07/10/20 08:21 Risperidone (RisperDAL) 1 mg BID ORAL 07/04/20 18:00 08/18/20 17:59 07/10/20 08:20 Sennosides (Senokot) 8.6 mg DAILY ORAL 07/04/20 09:00 08/03/20 08:59 07/10/20 08:21 Trimethoprim/ Sulfamethoxazole (Bactrim-DS) 1 tab Q12HR ORAL 07/05/20 21:00 07/12/20 20:59 07/10/20 08:21 Omaira Eduardo M.D. Jul 10, 2020 13:38
--- NOTE | 2020-07-10 13:52 | NUR ---
*-*DISCHARGE PLANNED*-* PATIENT HAS BEEN ACCEPTED AND WILL BE DISCHARGED BACK TO: [facility] P: [phone] ROOM# H.10 [facility] TRANSPORTATION SET FOR 3PM S/W [place] [id number] S/W PATIENTS DAUGHTER RUPERT HOBBS, WHO IS IN AGREEMENT WITH DISCHARGE PLAN.
--- NOTE | 2020-07-10 15:55 | NUR ---
NURSE NOTES: Patient left at 1550 accompanied by 2 workforce development assistant, pt will be discharged to [facility]. Discharge paperworks completed and all belongings complete. No c/o any pain or discomfort upon DC, ID band removed, no IV line. Called and gave report to Bernard FENG from [facility]. Pt left in stable condition. Daughter is aware.
--- NOTE | 2020-07-12 10:48 | Discharge Summary ---
Discharge Summary Discharge Summary _ DATE OF ADMISSION: 07/03/2020 DATE OF DISCHARGE: 07/10/2020 DISCHARGED BY: Dr Portillo REASON FOR ADMISSION: 64 years old female, resident of detention facility, with past medical history of COPD, schizophrenia, presented for bilateral lower extremity cellulitis ( right more than left) of unknown duration. Apparently she had a history of previous injury to the right tibia-fibula and now there was a wound with scabbing with minimal drainage. Per tennis camp instructor nursing staff indicated that lower extremities were red , and patient had similar problems in the past . Patient by herself was a poor historian and unable to provide reliable histor y. No reported fever or chills. No recent trauma. No nausea and vomiting. Upon evaluation vital signs were stable Laboratory work-up revealed no leukocytosis, stable hemoglobin , hematocrit and platelet count. BUN 21, creatinine 1.0. Glucose 124. Urinalysis revealed no evidence of urinary tract infection. X-ray of the right tibia-fibula revealed no soft tissue swelling , fracture or dislocation. Patient admitted with diagnosis of cellulitis bilateral lower extremities CONSULTANTS: ID specialist Dr. Eduardo ground control approach technician/oncologist Dr. Collins psychiatrist Dr. Rivera [facility] COURSE: Patient admitted to medical surgical floor and started on empiric antibiotics. Wound culture revealed MRSA. Patient remained afebrile , no leukocytosis . Antibiotic optimized as per ID recommendation ; patient will need to complete antibiotic course as outpatient at the facility. DVT and GI prophylaxis provided. Counts were closely monitored. Abdominal ultrasound demonstrated hepatomegaly and fatty infiltration of the liver. Hepatitis panel revealed evidence of hepatitis C. Recommended outpatient treatment for hepatitis C. Supportive care provided . Recommended outpatient treatment for hepatitis C. Pulse oximetry remained stable on room air. No evidence of COPD exacerbation. Psychiatric medication regimen optimized as per psychiatrist. Cognitive behavioral therapy provided. Patient clinically stabilized and was ready for discharge back to detention facility for continuation of care. FINAL DIAGNOSES: Bilateral lower extremity cellulitis ( right more than left ) with MRSA Hepatitis C COPD Right breast cancer status post mastectomy Schizoaffective bipolar type DISCHARGE MEDICATIONS: See Medication Reconciliation list. DISCHARGE INSTRUCTIONS: Patient was discharged to the detention facility. Follow up with medical doctor at the facility. I have been assigned to dictate discharge summary for this account. I was not involved in the patient's management. Yoselin Vick NP Jul 12, 2020 10:48
== END 2020-07-10 15:50 | DRG 603 ==
LOC: EDBD 22:05 → EMR 22:28 → 4E 22:51 → EDBEDREQ 23:34 → 4E 07-04 10:30
DX: L03.116 Cellulitis of left lower limb (principal); L03.115 Cellulitis of right lower limb; B95.62 Methicillin resistant Staphylococcus aureus infection as the cause of diseases classified elsewhere; J44.9 Chronic obstructive pulmonary disease, unspecified; F25.0 Schizoaffective disorder, bipolar type; D72.821 Monocytosis (symptomatic); C50.911 Malignant neoplasm of unspecified site of right female breast; E86.0 Dehydration; B19.20 Unspecified viral hepatitis C without hepatic coma; Z90.11 Acquired absence of right breast and nipple
CPT/HCPCS: 36415; 76700; 80048; 81001; 85025; 86703; 86705; 86709; 86803; 87070; 87081; 87181; 87205; 87340; 96365; 99285